=== PATIENT | female | born 1960 | race Caucasian/White ===

== ENCOUNTER 2017-03-25 23:27 | Inpatient (IN) | payer OTHER ==
[~2017-03-25] VITALS: Ht 182.9 cm; Wt 82.1 kg
[~2017-03-25 23:27] MED LIST: FURO-144 PO; LACT10SO6 PO; SPIR50TA PO
--- NOTE | 2017-03-25 23:30 | NUR ---
TO BED 7 A 57 YO FEMALE DOP646 FROM HOME, C/O ABD PAIN X 3 DAYS WITH ABD DISTENTION X 1 MONTH, AND PAIN ON THE LEFT LOWER QUADRANT AT 10/10. PATIENT NOTED ALSO WITH AYAD LEG SWELLING. HX LIVER CIRRHOSIS AND ETOH. LAST USE WAS TONIGHT WITH "A PINT OF VODKA." VSS. AFEBRILE. REPORTING ITCHINESS ON SKIN. NONDIAPHORETIC. NO SOB. KEPT HOB ELEVATED. TELE MONITORING ON. GOWNED. INITIATED COMFORT MEASURES. AWAITING FOR ER MD KEITH.
[2017-03-26] MEDS ORDERED: CEFTRIAXONE 1 G in IV D5W 50 ML IV ONE ×2
[2017-03-26] MEDS ORDERED: CEFTRIAXONE 1GM BAG (ER ONLY) 50 ML IV ONE (00:29)
[2017-03-26] MEDS ORDERED: LACTULOSE 10 G/15 ML UDC (PYXIS) PO PRN (00:30)
[2017-03-26] MEDS ORDERED: Z GUARD REMEDY 2 OZ OINT TP PRN (00:30)
[2017-03-26] MEDS ORDERED: ONDANSETRON HCL/PF 4 MG/2 ML VIAL IVP PRN (00:30)
[2017-03-26] MEDS ORDERED: ZOLPIDEM TARTRATE 5 MG TABLET PO PRN (00:30)
[2017-03-26] MEDS ORDERED: IV SET PRIMARY PUMP SET 1 EA INFUS.SET MC ONE ×2 (00:30→14:00)
[2017-03-26] MEDS ORDERED: MAG HYDROX/AL HYDROX/SIMETH 30 ML UDC PO PRN (00:30)
[2017-03-26] MEDS ORDERED: MAGNESIUM HYDROXIDE 30 ML UDC PO PRN (00:30)
[2017-03-26 00:32] LABS: BASOPHILS % (AUTO) 0.5 % (0.0-2.0); EOSINOPHILS # (AUTO) 0.3 /CMM (0.0-0.7); EOSINOPHILS % (AUTO) 5.6 % (0.0-6.0); HEMATOCRIT 30 % (33-45); LYMPHOCYTES # (AUTO) 2.4 /CMM (0.8-4.8); LYMPHOCYTES % (AUTO) 40.4 % (20.0-44.0); MEAN CORPUSCULAR HEMOGLOBIN 31 PG (26.0-33.0); MEAN CORPUSCULAR HGB CONC 33 g/dl (31.0-36.0); MEAN CORPUSCULAR VOLUME 96 fL (82-100); MONOCYTES # (AUTO) 0.4 /CMM (0.1-1.30); MONOCYTES % (AUTO) 5.9 % (2.0-12.0); NEUTROPHILS # (AUTO) 2.8 /CMM (1.8-8.9); NEUTROPHILS % (AUTO) 47.6 % (43.0-81.0); PLATELET COUNT (AUTO) 148 /CMM (150-450); RDW COEFFICIENT OF VARIATION 16.5 (11.5-15.0); RED BLOOD CELL COUNT(AUTO) 3.18 MIL/uL (4.0-5.2); WHITE BLOOD COUNT (AUTO) 5.9 K/uL (4.3-11.0)
--- NOTE | 2017-03-26 00:41 | NUR ---
PT ASSIGNED TO 311-2
[2017-03-26 00:53] LABS: CALCIUM, SERUM 8.1 mg/dL (8.5-10.1); CREATININE 0.9 mg/dL (0.6-1.3); POTASSIUM 3.4 mmol/L (3.5-5.1)
--- NOTE | 2017-03-26 00:56 | NUR ---
Report given to Xiomara BRUCE for Medsurg admission and rubi.
[2017-03-26 00:57] LABS: ALBUMIN 2.3 g/dL (3.4-5.0); BILIRUBIN,DIRECT 0.3 mg/dL (0.0-0.2); BILIRUBIN,TOTAL 0.6 mg/dL (0.2-1.0); TOTAL PROTEIN, SERUM 6.7 g/dL (6.4-8.2)
[2017-03-26 01:25] VITALS: BP 127/79
--- NOTE | 2017-03-26 01:25 | NUR ---
RN NOTES ADMITTED A 57 YEARS OLD FEMALE PT FROM ER VIA [facility] WITH PRIMARY DIAGNOSIS OF ASCITES AND CIRRHOSIS. PT ALERT AND ORIENTED X3, ABDOMINAL PAIN AT TOLERABLE LEVEL AT THIS TIME. 12/08.NO SOB, NOT IN DISTRESS, ON ROOM AIR AND TOLERATED WELL. IV ACCESS ON RIGHT HAND PATENT AND INTACT. SKIN AND BODY ASSESSMENT DONE, NOTED WITH MULTIPLE SMALL SCABS ON ABDOMEN AND BOTH LOWER LEG. ALL ORDERS NOTED AND CARRIED OUT. FALL PRECAUTION OBSERVED. WILL CONTINUE TO MONITOR PT.
--- NOTE | 2017-03-26 01:40 | NUR ---
RN NOTES PT ATE SMALL AMOUNT OF FOOD, VERBALIZING SHE'S HUNGRY AND TOLERATED WELL.
--- NOTE | 2017-03-26 06:53 | NUR ---
RN NOTES PT ASLEEP, BREATHING REGULAR AND UNLABORED, NO SIGNS OF DISTRESS AND DISCOMFORT NOTED. ON ROOM AIR AND TOLERATED WELL. KEPT PT ON NPO, SINCE PT LAST ATE AT 0140 FOR THE PARACENTESIS TODAY. VITAL SIGNS STABLE, AFEBRILE. NO EPISODE OF NAUSEA AND VOMITING NOTED. ALL NEEDS ATTENDED. WILL ENDORSE TO MORNING RN FOR CONTINUITY OF CARE.
--- NOTE | 2017-03-26 07:30 | NUR ---
MS RN RECEIVED ON BED, AWAKE,ALERT,ORIENTED X3,NOT IN ANY FORM OF DISTRESS, RESPIRATIONS EVEN AND UNLABORED,NO SOB NOTED. PATIENT IS NOTED TO HAVE ASCITES, FOR U/S GUIDED PARACENTESIS TODAY.
[2017-03-26 08:00] VITALS: BP 137/86
[2017-03-26] MEDS ORDERED: POTASSIUM CHLORIDE 20 MEQ TAB.PRT.SR PO ONE (08:30)
--- NOTE | 2017-03-26 09:00 | NUR ---
MS RN HELD DUE MEDS FOR PARACENTESIS TODAY.
--- NOTE | 2017-03-26 09:00 | NUR ---
MS RN WAS SEEN BY DR. KAREN Daigle/ ORDERS MADE AND CARRIED OUT.
[2017-03-26 09:10] LABS: INR 0.98 (0.87-1.13); PROTHROMBIN TIME 10.5 SECS (9.5-12.7)
--- NOTE | 2017-03-26 10:00 | NUR ---
MS RN CALLED ULTRASOUND FOR PROCEDURE, WAITING TO REPLY.
--- NOTE | 2017-03-26 11:00 | NUR ---
MS RN ULTRASOUND PARACENTESIS WILL BE DONE AT 1 PM, PATIENT IS AWARE.
--- NOTE | 2017-03-26 11:15 | NUR ---
Social service consult for ETOH. JORGE met with pt. bedside. Pt. is a 57 year old female who was admitted to [facility] for Liver Cirrhosis. Pt. has a history of Liver Cirrhosis and ETOH. Pt. is alert and oriented x4. Pt. informed SW she was feeling very hot and sweating and needed a fan. SW informed WALLY Awan regarding pt's request and to bring her some ice chips as well. Pt. informed SW she resides in [place] with some roommates. Pt's home address is [address] [place] [address]. [place] [address]. Pt. drinks approximately 2 to 3 pints of vodka per day. Pt. has not been to AA or in any treatment. Pt. states she has been drinking for years. Pt. does not use drugs. Pt. is a cigarette smoker and smoke 2 to 3 cigarettes per day. Pt. receives $800/ month in social security income. Pt. is interested in getting resources to AA and other alcohol treatment programs. SW to offer pt. referrals to AA and alcohol treatment programs prior to discharge.
--- NOTE | 2017-03-26 13:30 | NUR ---
MS RN U/S TECH CAME, PATIENT REFUSED, WANTS TO DO IT IN AM, ACCORDING TO HER, SHE IS NOT FEELING WELL. ZOFRAN GIVEN FOR NAUSEA, V/S CHECK WITHIN NORMAL LIMITS.SWEATING A LOT.
[2017-03-26] MEDS: Thiamine 100 MG in IV D5W 50 ML IV SCH (14:07)
[2017-03-26] MEDS: Folic acid 1 MG in IV D5W 50 ML IV SCH (14:07)
[2017-03-26] MEDS: FUROSEMIDE 40 MG TABLET PO SCH (14:09)
[2017-03-26] MEDS: SPIRONOLACTONE 25 MG TABLET PO SCH (14:09)
--- NOTE | 2017-03-26 14:30 | NUR ---
MS RN PATIENT FEELS BETTER, SLEEPING.
--- NOTE | 2017-03-26 15:36 | NUR ---
MS RN ON BED, NO DISTRESS NOTED.
[2017-03-26 16:00] VITALS: BP 172/90
--- NOTE | 2017-03-26 16:23 | NUR ---
AT 1430 PATIENT FELT ILL, DID NOT WANT ULTRASOUND GUIDED PARACENTESIS TODAY. WILL RE-ATTEMPT ULTRASOUND GUIDED PARACENTESIS TOMORROW 03/27/17 JANIS HAGAN IS AWARE
--- NOTE | 2017-03-26 17:51 | NUR ---
MS RN ON BED, NO DISTRESS NOTED.
--- NOTE | 2017-03-26 19:05 | NUR ---
RN NOTES RECEIVED PT AWAKE, HOB ELEVATED, NO SOB, NOT IN DISTRESS, ON ROOM AIR AND TOLERATED WELL. PT ALERT AND ORIENTED X3, DENIES ANY PAIN AND DISCOMFORT AT THIS TIME, DENIES NAUSEA AND VOMITING. ASCITES NOTED. IV ACCESS ON LEFT HAND PATENT AND INTACT. ASSISTED TO THE BATHROOM, FALL PRECAUTION OBSERVED. KEPT COMFORTABLE AND ATTENDED. WILL CONTINUE TO MONITOR PT.
[2017-03-26 20:00] VITALS: BP 114/67
--- NOTE | 2017-03-26 21:03 | NUR ---
RN NOTES PT IS VERBALIZING OF GENERALIZED BODY ITCHING, DR LEE MADE AWARE WITH ORDER TO GIVE BENADRYL 25 MG IV X1,NOTED AND CARRIED OUT.
[2017-03-26] MEDS ORDERED: diphenhydrAMINE HCL 50 MG/ML VIAL ONE (21:10)
--- NOTE | 2017-03-26 21:17 | NUR ---
RN NOTES BENADRYL 25 MG GIVEN IV FOR GENERALIZED BODY ITCHING. WILL CONTINUE TO MONITOR PT.
[2017-03-26] MEDS ORDERED: diphenhydrAMINE HCL 50 MG/ML VIAL IV ONE (21:30)
[2017-03-26 22:00] VITALS: BP 114/67
--- NOTE | 2017-03-27 06:41 | NUR ---
RN NOTES PT ASLEEP, BREATHING REGULAR AND UNLABORED, NO SOB, NOT IN DISTRESS, TOLERATING ROOM AIR. VITAL SIGNS STABLE, AFEBRILE. NO COMPLAIN OF PAIN, NO EPISODE OF NAUSEA AND VOMITING. PT SLEPT WELL WITH IN THE SHIFT. FOR ULTRA SOUND GUIDED PARACENTESIS TODAY. ALL NEEDS ATTENDED. ASSISTED TO THE BATHROOM, FALL PRECAUTION OBSERVED. WILL ENDORSE TO MORNING RN FOR CONTINUITY OF CARE.
--- NOTE | 2017-03-27 07:44 | NUR ---
RN OPENING NOTES RECEIVED PATIENT ON BED,AWAKE. ALERT AND ORIENTED X 3. RESPIRATIONS EVEN AND UNLABORED, HOB ELEVATED, NO SOB, NOT IN DISTRESS, ON ROOM AIR AND TOLERATED WELL. DENIES PAIN AND DISCOMFORT AT THIS TIME. ASCITES NOTED. IV ACCESS ON LEFT HAND PATENT AND INTACT. BED IN LOWEST POSITION, SIDERAILS UP X2. FALL PRECAUTION OBSERVED. CALL LIGHT WITHIN REACH. WILL CONTINUE TO MONITOR.
[2017-03-27 08:00] VITALS: BP_SYST 149; BP_SYST 181; BP_DIAS 67; BP_DIAS 80
[2017-03-27 08:05] VITALS: BP 150/69
[2017-03-27 08:17] LABS: BASOPHILS % (AUTO) 0.6 % (0.0-2.0); EOSINOPHILS # (AUTO) 0.2 /CMM (0.0-0.7); EOSINOPHILS % (AUTO) 4.6 % (0.0-6.0); HEMATOCRIT 33 % (33-45); HEMOGLOBIN 11.1 g/dL (11.5-14.8); LYMPHOCYTES # (AUTO) 1.7 /CMM (0.8-4.8); LYMPHOCYTES % (AUTO) 34.2 % (20.0-44.0); MEAN CORPUSCULAR HEMOGLOBIN 32 PG (26.0-33.0); MEAN CORPUSCULAR HGB CONC 33 g/dl (31.0-36.0); MEAN CORPUSCULAR VOLUME 97 fL (82-100); MONOCYTES # (AUTO) 0.4 /CMM (0.1-1.30); NEUTROPHILS # (AUTO) 2.6 /CMM (1.8-8.9); NEUTROPHILS % (AUTO) 51.6 % (43.0-81.0); PLATELET COUNT (AUTO) 137 /CMM (150-450); RDW COEFFICIENT OF VARIATION 16.1 (11.5-15.0); RED BLOOD CELL COUNT(AUTO) 3.46 MIL/uL (4.0-5.2)
[2017-03-27 08:52] LABS: CALCIUM, SERUM 8.7 mg/dL (8.5-10.1); CREATININE 0.7 mg/dL (0.6-1.3); PHOSPHORUS 4.5 mg/dL (2.5-4.9); POTASSIUM 4.6 mmol/L (3.5-5.1)
[2017-03-27] MEDS: SPIRONOLACTONE 25 MG TABLET PO SCH (08:54)
[2017-03-27] MEDS: FUROSEMIDE 40 MG TABLET PO SCH (08:55)
[2017-03-27 08:59] LABS: MAGNESIUM 1.5 mg/dL (1.8-2.4)
[2017-03-27] MEDS: Folic acid 1 MG in IV D5W 50 ML IV SCH (11:20)
--- NOTE | 2017-03-27 11:22 | NUR ---
JORGE met with pt. bedside and gave pt. the following resources to Alcohol and Drug treatment programs which included: [facility] , [facility] , [facility] alcohol treatment , [facility] , [facility] to name a few. JORGE also gave pt. phone number to Alcohol Anonymous and mental health referrals to [facility] , [facility] and [facility] .
--- NOTE | 2017-03-27 11:45 | NUR ---
PARACENTESIS DONE, 5000 MLS OUTPUT. PATIENT TOLERATED WELL.
[2017-03-27] MEDS: Thiamine 100 MG in IV D5W 50 ML IV SCH (12:02)
[2017-03-27] MEDS ORDERED: IV SET PRIMARY PUMP SET 1 EA INFUS.SET MC ONE ×3 (12:40→17:10)
[2017-03-27] MEDS: Magnesium 1GM/D5W 100ML PREMIX 100 ML IV SCH ×2 (12:45→14:05)
[2017-03-27] MEDS ORDERED: POTASSIUM PHOSPHATE MM 15 MMOL in IV D5W 250 ML IV SCH (15:00)
[2017-03-27] MEDS ORDERED: SECONDARY IV SET 1 EA INFUS.SET MC ONE ×2 (15:23→17:09)
[2017-03-27] MEDS: LEVOFLOXACIN 500 MG /D5W 100ML 500 MG in PREMIX 1 EA IV SCH (15:29)
[2017-03-27 16:00] VITALS: BP 140/79
[2017-03-27 16:02] VITALS: BP 139/75
--- NOTE | 2017-03-27 16:17 | NUR ---
VERIFIED WITH DR JONES REGARDING POTASSIUM PHOSPHATE ORDERED, PATIENT POTASSIUM LEVEL 4.6. PER TORSTEN WOOD TO GIVE POTASSIUM PHOSPATE.
[2017-03-27] MEDS ORDERED: IV NS 0.9% 250 ML IV ONE (17:09)
[2017-03-27] MEDS: POTASSIUM PHOSPHATE MM 7.5 MMOL in IV D5W 100 ML IV SCH ×2 (17:20→22:10)
--- NOTE | 2017-03-27 19:18 | NUR ---
RN CLOSING NOTES PATIENT ON BED RESTING. NO ACUTE DISTRESS NOTED. ALL NEEDS ATTENDED AND PROVIDED. BED IN LOWEST POSITION. CALL LIGHT WITHIN REACH. ENDORSED TO DREDGE ENGINEER RN FOR CONTINUITY OF CARE
[2017-03-27 20:00] VITALS: BP 153/87
--- NOTE | 2017-03-27 20:00 | NUR ---
MS/RN PATIENT AWAKE, ALERT, ORIENTED, COMFORTABLE, NO C/O PAIN AT THIS TIME, NO DISTRESS NOTED, CALL LIGHT IN REACH. WILL MONITOR.
--- NOTE | 2017-03-27 23:15 | NUR ---
MS/RN PATIENT IS SLEEPING AT THIS TIME, AROUSABLE, APPEAR COMFORTABLE, NO SIGNS OF DISTRESS NOTED, CALL LIGHT IN REACH. WILL CONTINUE TO MONITOR.
--- NOTE | 2017-03-28 07:27 | NUR ---
RN OPENING NOTES RECEIVED PATIENT ON BED, RESTING. ALERT AND ORIENTED X3. NO ACUTE DISTRESS NOTED, NO SOB, NO COMPLAINS OF PAIN. IV SITE INTACT AND PATENT. BED IN LOW POSITION. SIDERAILS UP X2. CALL LIGHT WITHIN REACH. WILL CONTINUE TO MONITOR.
--- NOTE | 2017-03-28 07:42 | NUR ---
MS/RN PATIENT STILL SLEEPING, AROUSABLE, COMFORTABLE, NO DISTRESS NOTED. ALL NEEDS ATTENDED AT THIS TIME.
[2017-03-28 08:00] VITALS: BP 143/76
[2017-03-28] MEDS ORDERED: FOLIC ACID 1 MG TABLET PO SCH (09:00)
[2017-03-28] MEDS ORDERED: THIAMINE HCL 100 MG TABLET PO SCH (09:00)
[2017-03-28] MEDS: FUROSEMIDE 40 MG TABLET PO SCH (09:26)
[2017-03-28] MEDS: SPIRONOLACTONE 25 MG TABLET PO SCH (09:27)
[2017-03-28] MEDS ORDERED: SECONDARY IV SET 1 EA INFUS.SET MC ONE ×2 (12:00→13:26)
[2017-03-28] MEDS: Magnesium 1GM/D5W 100ML PREMIX 100 ML IV SCH ×2 (12:11→15:28)
[2017-03-28] MEDS: LEVOFLOXACIN 500 MG /D5W 100ML 500 MG in PREMIX 1 EA IV SCH (13:25)
[2017-03-28 15:48] VITALS: BP 128/78
[2017-03-28 16:00] VITALS: BP 128/78
--- NOTE | 2017-03-28 18:00 | NUR ---
PATIENT DISCHARGE VIA WHEELCHAIR ACCOMPANIED BY DONALD LO. PATIENT IN STABLE CONDITION, VITAL SIGNS WNL. DISCHARGE TEACHING AND INSTRUCTIONS DONE.
== END 2017-03-28 19:00 | disposition home or self-care (01) | DRG 280 ==
LOC: ER 23:28 → MED 03-26 00:44
PROVIDERS: ADMIT Family Medicine; ATTEND Family Medicine
PROC: 0W9G3ZZ Drainage of Peritoneal Cavity, Percutaneous Approach (ICD-10-PCS; principal; 2017-03-27)
DX: K70.31 Alcoholic cirrhosis of liver with ascites (principal); D69.6 Thrombocytopenia, unspecified; K76.6 Portal hypertension; K72.90 Hepatic failure, unspecified without coma; F10.239 Alcohol dependence with withdrawal, unspecified; F10.229 Alcohol dependence with intoxication, unspecified; D63.8 Anemia in other chronic diseases classified elsewhere; Y90.8 Blood alcohol level of 240 mg/100 ml or more; G89.29 Other chronic pain; F17.210 Nicotine dependence, cigarettes, uncomplicated; Z83.3 Family history of diabetes mellitus
CPT/HCPCS: 36415; 76942-TC; 80048-TC; 80061-TC; 80076-TC; 82140-TC; 83690-TC; 83735-TC; 84100-TC; 85025-TC; 85610-TC; 87070-TC; 87081-TC; 88305-TC; 88312-TC; 89051-TC; A4216; A4606; A6403; G0480; J0696; J1200; J1956; J2405; J3411; J3475; J3490; J7050; J7060; Z7610

== ENCOUNTER 2017-11-01 18:05 | Inpatient (IN) | payer OTHER ==
[~2017-11-01] VITALS: Ht 182.9 cm; Wt 67.1 kg
--- NOTE | 2017-11-01 18:15 | NUR ---
BIB SELF C/O NAUSEA, VOMITING, AND ABDOMINAL PAIN, NAD NOTED, VSS, RESP EVEN AND UNLABORED, PT PUT ON MONITOR AND HOSPITAL GOWN, WAITING FOR MD KEITH.
[2017-11-01] MEDS ORDERED: ONDANSETRON HCL/PF 4 MG/2 ML VIAL ONE (18:24)
[2017-11-01] MEDS ORDERED: HYDROMORPHONE INJ 2 MG/ML DISP.SYRIN ONE (18:25)
[2017-11-01] MEDS ORDERED: MORPHINE SULFATE INJ 2 MG/ML DISP.SYRIN IV ONE (18:30)
[2017-11-01] MEDS ORDERED: IV NS 0.9% 500 ML BAG IV ONE (18:30)
[2017-11-01] MEDS ORDERED: HYDROMORPHONE 1 MG/1 ML DISP.SYRIN IV ONE (18:30)
[2017-11-01] MEDS ORDERED: ONDANSETRON HCL/PF 4 MG/2 ML VIAL IVP ONE (18:30)
[2017-11-01 18:40] LABS: BASOPHILS # (AUTO) 0.1 /CMM (0.0-0.2); BASOPHILS % (AUTO) 1.1 % (0.0-2.0); EOSINOPHILS # (AUTO) 0.3 /CMM (0.0-0.7); EOSINOPHILS % (AUTO) 3.5 % (0.0-6.0); HEMATOCRIT 38 % (33-45); HEMOGLOBIN 12.5 g/dL (11.5-14.8); LYMPHOCYTES # (AUTO) 1.9 /CMM (0.8-4.8); LYMPHOCYTES % (AUTO) 23.9 % (20.0-44.0); MEAN CORPUSCULAR HEMOGLOBIN 31 PG (26.0-33.0); MEAN CORPUSCULAR HGB CONC 33 g/dl (31.0-36.0); MEAN CORPUSCULAR VOLUME 95 fL (82-100); MONOCYTES # (AUTO) 0.7 /CMM (0.1-1.30); MONOCYTES % (AUTO) 8.3 % (2.0-12.0); NEUTROPHILS % (AUTO) 63.2 % (43.0-81.0); PLATELET COUNT (AUTO) 218 /CMM (150-450); RDW COEFFICIENT OF VARIATION 14.9 (11.5-15.0); RED BLOOD CELL COUNT(AUTO) 3.99 MIL/uL (4.0-5.2)
[2017-11-01 18:51] LABS: CALCIUM, SERUM 9.8 mg/dL (8.5-10.1); CREATININE 0.9 mg/dL (0.6-1.3); POTASSIUM 3.9 mmol/L (3.5-5.1)
--- NOTE | 2017-11-01 18:55 | NUR ---
PT UNABLE TO GIVE URINE AT THIS MOMENT. WILL TRY AFTER THE IVFLUIDS HAS INFUSED.
[2017-11-01 18:56] LABS: INR 0.94 (0.85-1.15)
[2017-11-01 18:57] LABS: ALBUMIN 3.3 g/dL (3.4-5.0); BILIRUBIN,DIRECT 0.2 mg/dL (0.0-0.2); BILIRUBIN,TOTAL 0.6 mg/dL (0.2-1.0); TOTAL PROTEIN, SERUM 8.8 g/dL (6.4-8.2)
[2017-11-01 19:24] LABS: APPEARANCE,URINE Slightly Cloudy (CLEAR); BILIRUBIN,URINE SMALL (NEGATIVE); BLOOD, URINE Large Ery/uL (NEGATIVE); COLOR,URINE Dark (YELLOW); KETONES,URINE Negative (NEGATIVE); LEUKOCYTE ESTERASE ,URINE Negative (NEGATIVE); NITRITE, URINE Positive (NEGATIVE); PROTEIN,URINE >=300 mg/dl (NEGATIVE); UGLUCOSE Negative (NEGATIVE); UROBILINOGEN,URINE 0.2 EU/dL (0.2)
[2017-11-01] MEDS ORDERED: IOHEXOL-300 100 ML VIAL IV ONE (19:33)
[2017-11-01 19:39] LABS: BACTERIA,URINE Many /HPF (None Seen); HYALINE CASTS, URINE Few /LPF (None Seen); MUCUS,URINE Rare /LPF (None Seen); SQUAMOUS EPITHELIAL CELL,UR Few /HPF (None Seen)
[2017-11-01] MEDS ORDERED: LORAZEPAM INJ 2 MG/ML VIAL IV ONE (21:00)
[2017-11-01] MEDS ORDERED: CEFTRIAXONE 2 G in IV D5W 50 ML IV ONE (21:00)
[2017-11-01] MEDS ORDERED: LORAZEPAM INJ 2 MG/ML VIAL ONE (21:05)
[2017-11-01] MEDS ORDERED: CEFTRIAXONE 1GM BAG (ER ONLY) 50 ML IV ONE ×2 (21:05→21:14)
[2017-11-01 22:00] VITALS: BP 123/89
--- NOTE | 2017-11-01 22:00 | NUR ---
BUSINESS SYSTEM CONSULTANT NOTES: RECEIVED PT VIA [employer]. PT ASLEEP AND SNORING AT THIS TIME. PT TO BE PLACED ON TELE BOX. PT HAS L AC #20G AND IS PATENT AND INTACT. CURRENTLY S/L. HOB TO BE ELEVATED AT ALL TIMES. CALL LIGHT WITHIN PT'S REACH. BED KEPT IN LOW, LOCKED POSITION, AND SIDE RAILS X 2UP. BED ALARM ACTIVATED. WILL CONTINUE TO MONITOR PT.
--- NOTE | 2017-11-01 22:15 | NUR ---
BAGGAGEMAN NOTES: DR. JONES AT BEDSIDE. PER DOCTOR, KEEP HOB ELEVATED AT ALL TIMES. ER NURSES SHOULD BE COMING TO PLACE NG TUBE PER DR. JONES.
--- NOTE | 2017-11-01 22:20 | NUR ---
INSERTED NG TUBE IN THE 3WEST FLOOR, PT PULLED OUT THE NGTUBE, AFTER PLACEMENT, PT REFUSED AND DIDN'T WANT TO COOPERATE ON THE 2ND ATTEMPT.
[2017-11-01] MEDS ORDERED: Z GUARD REMEDY 2 OZ OINT TP PRN (22:30)
[2017-11-01] MEDS ORDERED: ACETAMINOPHEN 325 MG TABLET PO PRN (22:30)
[2017-11-01] MEDS ORDERED: MAGNESIUM HYDROXIDE 30 ML UDC PO PRN (22:30)
[2017-11-01] MEDS ORDERED: ZOLPIDEM TARTRATE 5 MG TABLET PO PRN (22:30)
[2017-11-01] MEDS ORDERED: MAG HYDROX/AL HYDROX/SIMETH 30 ML UDC PO PRN (22:30)
[2017-11-01] MEDS ORDERED: HYDROCODONE/APAP 5/325MG 1 EACH TABLET PO PRN (22:30)
--- NOTE | 2017-11-01 22:56 | NUR ---
MISSION COORDINATOR NOTES: SPOKE WITH DR. JONES AND INFORMED HIM THAT PT WAS REFUSING AND RESISTANT WHILE ATTEMPTING TO INSERT NG TUBE. NO RESTRAINTS ORDER, NO MED ORDERS AT THIS TIME. WILL ATTEMPT NG INSERTION AGAIN AT ANOTHER TIME. DR. JONES ALSO ORDERED SMALL BOWEL THROUGH IN THE MORNING.
--- NOTE | 2017-11-01 23:27 | NUR ---
BRASS AND WIND INSTRUMENT REPAIRER NOTES: PT GOT UP TO USE THE RESTROOM. PT REFUSING NG TUBE INSERTION. PT VERBALIZED "NO".
--- NOTE | 2017-11-02 01:10 | NUR ---
CYANIDE FURNACE OPERATOR NOTES: INFORMED DR. JONES THAT PT HAS BEEN REFUSING NG TUBE INSERTION. ALSO ASKED TO SEE IF ANY IV FLUIDS TO BE ORDERED. NO ORDERS AT THIS TIME.
--- NOTE | 2017-11-02 02:28 | NUR ---
TELESALES ADVISOR NOTES: PT REFUSED NG TUBE INSERTION AGAIN.
[2017-11-02 04:00] VITALS: BP 139/79
--- NOTE | 2017-11-02 06:51 | NUR ---
MS BRUCE NOTES: PT REFUSING NG TUBE INSERTION AFTER HAVING EXPLAINED TO PT RISKS AND BENEFITS OF NG TUBE INSERTION FOR HER CONDITION. PT STILL REFUSING. Addendum: 11/02/17 at 0657 by MARKO WARREN RN ABHISHEK ACUÑA*
--- NOTE | 2017-11-02 06:57 | NUR ---
OBSTETRICS AND GYNECOLOGY PROFESSOR CLOSING NOTES: ALL NEEDS WERE ATTENDED AND ANTICIPATED FOR. PT KEPT NPO. PT STILL REFUSING NG TUBE INSERTION. PT HAS BEEN ASLEEP THROUGHOUT MY SHIFT. PT A/OX 1-2. PT ON TELE BOX AND READING SHOWING SINUS TACH 105. PT HAS L AC #20G AND IS PATENT AND INTACT. CURRENTLY S/L. NO IV FLUIDS ORDERED AT THIS TIME. HOB TO BE ELEVATED AT ALL TIMES. CALL LIGHT WITHIN PT'S REACH. BED KEPT IN LOW, LOCKED POSITION, AND SIDE RAILS X 2UP. BED ALARM ACTIVATED. WILL ENDORSE TO AM NURSE FOR SMITH.
[2017-11-02 07:02] LABS: BASOPHILS % (AUTO) 0.4 % (0.0-2.0); EOSINOPHILS # (AUTO) 0.1 /CMM (0.0-0.7); EOSINOPHILS % (AUTO) 3.2 % (0.0-6.0); HEMATOCRIT 31 % (33-45); HEMOGLOBIN 10.3 g/dL (11.5-14.8); INR 0.96 (0.87-1.13); LYMPHOCYTES # (AUTO) 1.3 /CMM (0.8-4.8); LYMPHOCYTES % (AUTO) 29.2 % (20.0-44.0); MEAN CORPUSCULAR HEMOGLOBIN 33 PG (26.0-33.0); MEAN CORPUSCULAR HGB CONC 34 g/dl (31.0-36.0); MEAN CORPUSCULAR VOLUME 98 fL (82-100); MONOCYTES # (AUTO) 0.5 /CMM (0.1-1.30); MONOCYTES % (AUTO) 11.6 % (2.0-12.0); NEUTROPHILS # (AUTO) 2.5 /CMM (1.8-8.9); NEUTROPHILS % (AUTO) 55.6 % (43.0-81.0); PLATELET COUNT (AUTO) 132 /CMM (150-450); RED BLOOD CELL COUNT(AUTO) 3.14 MIL/uL (4.0-5.2); WHITE BLOOD COUNT (AUTO) 4.4 K/uL (4.3-11.0)
[2017-11-02 07:12] LABS: THYROID STIMULATING HORMONE 0.672 uIU/mL (0.358-3.74)
[2017-11-02 07:20] LABS: ALBUMIN 2.8 g/dL (3.4-5.0); BILIRUBIN,TOTAL 0.9 mg/dL (0.2-1.0); CREATININE 0.9 mg/dL (0.6-1.3); MAGNESIUM 1.7 mg/dL (1.8-2.4); PHOSPHORUS 5.3 mg/dL (2.5-4.9); POTASSIUM 3.8 mmol/L (3.5-5.1); TOTAL PROTEIN, SERUM 7.6 g/dL (6.4-8.2)
--- NOTE | 2017-11-02 07:20 | NUR ---
RN NOTES RECEIVED PATIENT IN BED ASLEEP, EASILY AROUSABLE DURING CARE, ABLE TO MAKE NEEDS KNOWN. RESPIRATIONS EVEN AND UNLABORED, DENIES ANY PAIN OR DISCOMFORT AT THIS TIME. IV ACCESS PATENT AND INTACT NO REDNESS OR INFILTRATION NOTED. PATIENT CONTINUOUSLY REFUSING NGT INSERTION, NURSING EDUCATION REINFORCED. SAFETY MEASURES IN PLACE, KEPT CLEAN DRY AND COMFORTABLE.
[2017-11-02 08:00] VITALS: BP 153/78
--- NOTE | 2017-11-02 09:23 | NUR ---
RN NOTES PATIENT STATING " I WANT TO GO HOME I AM GOING TO LEAVE" PATIENT REPEATS " I DONT WANT TO DO ANYTHING, NO TEST, I DONT NEED IT , I WANT TO BE RELEASED" NURSING EDUCATION REINFORCED, WILL INFORM HOSPITALIST, WILL CONTINUE TO MONITOR AND INFORM PATIENT OF MD RECOMMENDATION
--- NOTE | 2017-11-02 09:33 | NUR ---
JANIS NOTES PATIENT CONTINUOUSLY REFUSING NGT INSERTION, AWARE Addendum: 11/02/17 at 5458 by AMEENA IBANEZ RN Amended: Links added.
--- NOTE | 2017-11-02 10:53 | NUR ---
RN NOTES NOTIFIED RADIOLOGY PT AGREEING TO HAVE SMALL BOWEL FOLLOW THROUGH WILL CONTINUE TO MONITOR
[2017-11-02] MEDS ORDERED: IV NS 0.9% 1,000 ML IV ONE (12:00)
--- NOTE | 2017-11-02 12:17 | NUR ---
RN NOTES PATIENT TAKEN FOR SMALL BOWEL FOLLOW THROUGH WILL ADMINISTER MEDICATIONS UPON RETURN
[2017-11-02] MEDS ORDERED: DIATR MEGLU/DIATRIZOATE SODIUM 120 ML BOTTLE (GASTROGRAPHIN) ONE (12:25)
[2017-11-02] MEDS ORDERED: Folic acid 1 MG in IV D5W 50 ML IV SCH (13:00)
--- NOTE | 2017-11-02 13:52 | NUR ---
RN NOTES PATIENT BACK FROM SMALL BOWEL FOLLOW THROUGH TO REMAIN NPO AT THIS TIME, NEEDS ANOTHER XRAY RADIOLOGY TO FOLLOW UP
[2017-11-02] MEDS ORDERED: Thiamine 100 MG in IV D5W 50 ML IV SCH (14:00)
--- NOTE | 2017-11-02 15:00 | NUR ---
RN NOTES IV MEDICATION ADMINISTERED LATE PT NOW FINISHED WITH SMALL BOWEL FOLLOW THROUGH WILL ADMINISTER AND CONTINUE TO MONITOR PT WITH MULTIPLE IV MEDICATIONS MD AND PHARMACY AWARE SPOKE TO ROLA FROM PHARMACY WILL DELIVER THIAMINE IV
[2017-11-02 16:00] VITALS: BP 152/83
[2017-11-02] MEDS: LORAZEPAM INJ 2 MG/ML VIAL IV PRN (16:12)
[2017-11-02] MEDS: ONDANSETRON HCL/PF 4 MG/2 ML VIAL IVP PRN (16:12)
[2017-11-02] MEDS: LEVOFLOXACIN 500 MG /D5W 100ML 500 MG in PREMIX 1 EA IV SCH (18:08)
[2017-11-02] MEDS ORDERED: IV D5/ 0.9% NACL 1,000 ML IV PRN (18:30)
--- NOTE | 2017-11-02 19:00 | NUR ---
GATE MORTISER OPERATOR NOTE: RECEIVE PT FROM BED, STABLE, NO ACUTE DISTRESS NOTED. BREATHING EVEN AND UNLABORED, NO SOB NOTED. BED LOCKED AND IN LOWEST POSITION, CALL LIGHT IN REACH. WILL CONTINUE TO MONITOR.
--- NOTE | 2017-11-02 19:10 | NUR ---
RN NOTES PATIENT IN BED ASLEEP, EASILY AROUSABLE DURING CARE, ABLE TO MAKE NEEDS KNOWN. RESPIRATIONS EVEN AND UNLABORED, DENIES ANY PAIN OR DISCOMFORT AT THIS TIME. IV ACCESS PATENT AND INTACT NO REDNESS OR INFILTRATION NOTED. PATIENT CONTINUOUSLY REFUSING NGT INSERTION, NURSING EDUCATION REINFORCED, MD AWARE. PATIENT WITH MULTIPLE IV MEDICATIONS NEXT SHIFT TO CONTINUE MEDICATION ADMINISTRATION, ENDORSED TO NEXT SHIFT FOR CONTINUITY OF CARE. SAFETY MEASURES IN PLACE, KEPT CLEAN DRY AND COMFORTABLE.SAFETY MEASURES IN PLACE, KEPT CLEAN DRY AND COMFORTABLE.
[2017-11-02 20:00] VITALS: BP 159/98
[2017-11-02] MEDS: Magnesium 1GM/D5W 100ML PREMIX 100 ML IV SCH ×2 (20:32→21:30)
[2017-11-03 04:00] VITALS: BP 145/74
[2017-11-03] MEDS: ONDANSETRON HCL/PF 4 MG/2 ML VIAL IVP PRN (06:11)
--- NOTE | 2017-11-03 06:34 | NUR ---
MS RN CLOSING NOTES PT COMFORTABLY ASLEEP AND EASILY AWAKEN, R.A 98% IN STABLE CONDITION. NOT IN FORM OF DISTRESS, RESPIRATION EVEN AND UNLABORED. KEPT CLEAN AND DRY AND COMFORTABLE, ALL NURSING CARE RENDERED. NEEDS ATTENDED AND ANTICIPATED, FREQUENT VISUAL CHECK DONE FOR SAFETY EVERY 2 HOURS. NO COMPLAINS OF PAIN. GOOD SKIN CARE PROVIDED. ON LOW BED AT ALL TIMES TO ENSURE SAFETY. SAFE HAZARD FREE ENVIRONMENT PROVIDED. CALL LIGHT WITHIN EASY TO REACH. WILL ENDORSE NEXT SHIFT CONTINUITY OF CARE Addendum: 11/03/17 at 0635 by ZACKARY CORTEZ RN CONTINUOUSLY REFUSING NGT INSERTION, NURSING EDUCATION DARIAN, MD LUJAN
[2017-11-03 06:43] LABS: BASOPHILS % (AUTO) 0.6 % (0.0-2.0); EOSINOPHILS # (AUTO) 0.2 /CMM (0.0-0.7); EOSINOPHILS % (AUTO) 7.7 % (0.0-6.0); HEMATOCRIT 31 % (33-45); HEMOGLOBIN 10.6 g/dL (11.5-14.8); LYMPHOCYTES # (AUTO) 0.7 /CMM (0.8-4.8); LYMPHOCYTES % (AUTO) 36.9 % (20.0-44.0); MEAN CORPUSCULAR HEMOGLOBIN 33 PG (26.0-33.0); MEAN CORPUSCULAR HGB CONC 34 g/dl (31.0-36.0); MEAN CORPUSCULAR VOLUME 97 fL (82-100); MONOCYTES # (AUTO) 0.2 /CMM (0.1-1.30); MONOCYTES % (AUTO) 10.6 % (2.0-12.0); NEUTROPHILS # (AUTO) 0.9 /CMM (1.8-8.9); NEUTROPHILS % (AUTO) 44.2 % (43.0-81.0); PLATELET COUNT (AUTO) 127 /CMM (150-450)
[2017-11-03 07:14] LABS: CALCIUM, SERUM 9.3 mg/dL (8.5-10.1); CREATININE 0.9 mg/dL (0.6-1.3); MAGNESIUM 2.1 mg/dL (1.8-2.4); PHOSPHORUS 3.4 mg/dL (2.5-4.9); POTASSIUM 4.4 mmol/L (3.5-5.1)
--- NOTE | 2017-11-03 07:37 | NUR ---
MS RN OPENING NOTE RECEIVED BEDSIDE SBAR REPORT ON THE PATIENT. PATIENT IS A/O X2, ASLEEP, EASILY AWAKEN. DENIES PAIN/DISCOMFORT AT THIS TIME. CHEST IS RISING EQUALLY BILATERALLY. SPO2 96% ON RA. PATIENT IS IN BED. HOB ELEVATED. BED IS LOCKED, IN LOWEST POSITION, SIDE RAILS UP X3, BED ALARM IS ON. CALL LIGHT WITHIN REACH. EDUCATED THE PATIENT TO CALL FOR ASSISTANCE USING THE CALL LIGHT. ALL NEEDS ARE MET AT THIS TIME. WILL CONTINUE TO ASSESS/MONITOR THROUGHOUT THE SHIFT.
[2017-11-03 08:00] VITALS: BP_SYST 124; BP_SYST 146; BP_DIAS 60; BP_DIAS 79
[2017-11-03 09:19] LABS: BAND % (MANUAL) 1 % (0.0-5.0); EOSINOPHILS % (MANUAL) 6 % (0-4); LYMPHOCYTES % (MANUAL) 30 % (16-48); MONOCYTES % (MANUAL) 11 % (0-11.0); NEUTROPHILS % (MANUAL) 52 (42-76)
[2017-11-03] MEDS: LORAZEPAM INJ 2 MG/ML VIAL IV PRN (11:55)
--- NOTE | 2017-11-03 12:04 | NUR ---
PATIENT COMPLAINED OF SEVERE ABDOMINAL PAIN. PRN NORCO ADMINISTERED PRESCRIBED. PATIENT PRESENTED WITH FINE HAND TREMORS AND COMPLAINED OF ANXIETY. PRN ATIVAN ADMINISTERED ORDERED.
--- NOTE | 2017-11-03 14:32 | NUR ---
CAME TO ADMINISTER MEDICATIONS DUE. PATIENT WAS IN THE BATHROOM. ASKED TO COME BACK LATER.
[2017-11-03] MEDS: THIAMINE HCL 100 MG TABLET PO SCH (15:04)
[2017-11-03] MEDS: LACTULOSE 10 G/15 ML UDC (PYXIS) PO PRN ×2 (15:05→23:05)
[2017-11-03] MEDS: LEVOFLOXACIN 500 MG /D5W 100ML 500 MG in PREMIX 1 EA IV SCH (15:06)
--- NOTE | 2017-11-03 15:10 | NUR ---
ADMINISTERED MEDICATIONS DUE AT 1400 PASSED SCHEDULED TIME PER PATIENT'S REQUEST.
[2017-11-03 15:57] VITALS: BP 131/94
--- NOTE | 2017-11-03 19:12 | NUR ---
ADVANCE DIET TO FULL LIQUIDS PER DR GARCIA
--- NOTE | 2017-11-03 19:27 | NUR ---
MS RN LUIS NOTE GAVE BEDSIDE SBAR REPORT ON THE PATIENT. PATIENT IS A/O X2, ASLEEP, EASILY AWAKEN. DENIES PAIN/DISCOMFORT AT THIS TIME. CHEST IS RISING EQUALLY BILATERALLY. SPO2 96% ON RA. PATIENT IS IN BED. HOB ELEVATED. BED IS LOCKED, IN LOWEST POSITION, SIDE RAILS UP X3, BED ALARM IS ON. CALL LIGHT WITHIN REACH. EDUCATED THE PATIENT TO CALL FOR ASSISTANCE USING THE CALL LIGHT. ALL DUE MEDS ADMINISTERED ORDERED. ALL NEEDS ARE MET AT THIS TIME. ENDORSED TO THE BAKERY AND DELI SALES MANAGER NURSE FOR SMITH.
[2017-11-03 20:00] VITALS: BP 142/78
[2017-11-04 06:14] LABS: BASOPHILS % (AUTO) 0.8 % (0.0-2.0); EOSINOPHILS # (AUTO) 0.4 /CMM (0.0-0.7); EOSINOPHILS % (AUTO) 10.6 % (0.0-6.0); HEMATOCRIT 31 % (33-45); HEMOGLOBIN 10.4 g/dL (11.5-14.8); LYMPHOCYTES # (AUTO) 1.3 /CMM (0.8-4.8); LYMPHOCYTES % (AUTO) 33.2 % (20.0-44.0); MEAN CORPUSCULAR HEMOGLOBIN 33 PG (26.0-33.0); MEAN CORPUSCULAR HGB CONC 34 g/dl (31.0-36.0); MEAN CORPUSCULAR VOLUME 97 fL (82-100); MONOCYTES # (AUTO) 0.4 /CMM (0.1-1.30); MONOCYTES % (AUTO) 11.1 % (2.0-12.0); NEUTROPHILS # (AUTO) 1.7 /CMM (1.8-8.9); NEUTROPHILS % (AUTO) 44.3 % (43.0-81.0); PLATELET COUNT (AUTO) 140 /CMM (150-450); RDW COEFFICIENT OF VARIATION 14.6 (11.5-15.0); RED BLOOD CELL COUNT(AUTO) 3.15 MIL/uL (4.0-5.2); WHITE BLOOD COUNT (AUTO) 3.9 K/uL (4.3-11.0)
[2017-11-04 06:23] LABS: INR 1.03 (0.87-1.13)
[2017-11-04 06:32] LABS: CALCIUM, SERUM 8.7 mg/dL (8.5-10.1); CREATININE 0.8 mg/dL (0.6-1.3); MAGNESIUM 1.6 mg/dL (1.8-2.4); PHOSPHORUS 3.4 mg/dL (2.5-4.9); POTASSIUM 3.9 mmol/L (3.5-5.1)
--- NOTE | 2017-11-04 06:37 | NUR ---
MS RN NOTES AWAKE & RESPONSIVE. NOT IN ANY DISTRESS. NO SOB NOTED. DENIES ANY PAIN OR DISCOMFORT AT THIS TIME. WITH IV-HL PATENT & INTACT. MONITORED ACCORDINGLY. CALL LIGHT WITHIN REACH. BED IN LOWEST POSITION. SR UP X 2 FOR SAFETY. WILL ENDORSE TO NEXT SHIFT.
[2017-11-04 08:00] VITALS: BP 130/79
[2017-11-04] MEDS ORDERED: SULF1TAB48 PO (08:31)
[2017-11-04] MEDS ORDERED: FOLI1TAB16 PO (08:31)
[2017-11-04] MEDS ORDERED: THIA100T13 PO (08:31)
[2017-11-04] MEDS: THIAMINE HCL 100 MG TABLET PO SCH (08:47)
[2017-11-04] MEDS: Magnesium 1GM/D5W 100ML PREMIX 100 ML IV SCH ×2 (08:48→10:25)
--- NOTE | 2017-11-04 08:51 | NUR ---
MS RN NOTES PATIENT IN BED, AWAKE. A/O X4. TOLERATING ROOM AIR, NO SOB. IVC IN LEFT AC G 20 PATENT AND INTACT, FLUSHES WELL. MAGNESIUM LOW 1.6, REPLACING IV ORDERED. CALL LIGHT WITHIN REACH. PATIENT TO BE DISCHARGED HOME TODAY, PATIENT IS AWARE. WILL CONT TO MONITOR.
--- NOTE | 2017-11-04 10:48 | NUR ---
PATIENT TOLERATED FULL LIQUID DIET WITH NO EPISODE OF VOMITING OR C/O NAUSEA. ADVANCED TO SOFT DIET TOLERATED.
[2017-11-04 12:00] VITALS: BP 129/79
[2017-11-04] MEDS ORDERED: FOLIC ACID 1 MG TABLET PO SCH (13:00)
[2017-11-04] MEDS ORDERED: LEVOFLOXACIN (500MG) 500 MG TABLET PO SCH (14:00)
--- NOTE | 2017-11-04 15:00 | NUR ---
MS RN DISCHARGED PATIENT HAS BEEN CLEARED FOR DISCHARGE BY . VS REMAINS STABLE, PATIENT IS AMBULATORY. IVC IN LEFT AC REMOVED, GAUZE APPLIED, NO BLEEDING NOTED. DISCHARGE INSTRUCTION GIVEN TO THE PATIENT, VERBALIZED UNDERSTANDING. BELONGINGS CHECK AND SEND WITH THE PATIENT UPON DC. PATIENT LEFT HOSP IN STABLE CONDITION VIA TAXI.
== END 2017-11-04 15:00 | disposition home health service (06) | DRG 279 ==
LOC: ER 18:09 → TELE 21:31 → MED 11-02 09:05
PROVIDERS: ADMIT Internal Medicine; ATTEND Internal Medicine
DX: K72.90 Hepatic failure, unspecified without coma (principal); K56.600 Partial intestinal obstruction, unspecified as to cause; K70.31 Alcoholic cirrhosis of liver with ascites; F41.9 Anxiety disorder, unspecified; F17.210 Nicotine dependence, cigarettes, uncomplicated; Y90.9 Presence of alcohol in blood, level not specified; F10.229 Alcohol dependence with intoxication, unspecified; L03.90 Cellulitis, unspecified; Z88.0 Allergy status to penicillin
CPT/HCPCS: 36415; 71045-TC; 74250-TC; 76700-TC; 80048-TC; 80053-TC; 80061-TC; 80076-TC; 81000-TC; 82140-TC; 83605-TC; 83690-TC; 83735-TC; 84100-TC; 84443-TC; 85025-TC; 85610-TC; 85730-TC; 87040-TC; 87081-TC; 87086-TC; 87186-TC; A4216; A4606; J0696; J1170; J1956; J2060; J2405; J3411; J3475; J3490; J7030; J7040; J7042; J7060; Q9963; Q9967; Z7610

== ENCOUNTER 2017-11-23 10:22 | Inpatient (IN) | payer OTHER ==
[~2017-11-23] VITALS: Ht 177.8 cm; Wt 69.4 kg
[2017-11-23] VITALS (11 sets, daily range): BP systolic 105–128; BP diastolic 67–89
[~2017-11-23 10:22] MED LIST changes: +FOLI1TAB16 PO; +SULF1TAB48 PO; +THIA100T13 PO
[2017-11-23] MEDS ORDERED: ONDANSETRON HCL/PF 4 MG/2 ML VIAL IVP ONE (10:30)
[2017-11-23] MEDS ORDERED: IV NS 0.9% 1,000 ML BAG IV ONE (10:30)
[2017-11-23] MEDS ORDERED: HYDROMORPHONE INJ 2 MG/ML DISP.SYRIN IV ONE (10:30)
--- NOTE | 2017-11-23 10:30 | NUR ---
aaox3, [id number] FROM HOME: ABDOMINAL PAIN, NAUSEA, VOMITING SINCE LAST NIGHT. rr is even and unlabored with nad noted. skin is warm and dry. Placed on the monitor. Awaiting md for eval.
[2017-11-23] MEDS ORDERED: ONDANSETRON HCL/PF 4 MG/2 ML VIAL ONE ×2 (10:36→11:55)
[2017-11-23] MEDS ORDERED: HYDROMORPHONE INJ 0.5 MG/0.5 ML SYRINGE ONE (10:37)
[2017-11-23 10:40] LABS: BASOPHILS % (AUTO) 0.3 % (0.0-2.0); EOSINOPHILS # (AUTO) 0.2 /CMM (0.0-0.7); EOSINOPHILS % (AUTO) 3.6 % (0.0-6.0); HEMATOCRIT 38 % (33-45); HEMOGLOBIN 12.8 g/dL (11.5-14.8); LYMPHOCYTES # (AUTO) 1.6 /CMM (0.8-4.8); MEAN CORPUSCULAR HEMOGLOBIN 32 PG (26.0-33.0); MEAN CORPUSCULAR HGB CONC 34 g/dl (31.0-36.0); MEAN CORPUSCULAR VOLUME 95 fL (82-100); MONOCYTES # (AUTO) 0.3 /CMM (0.1-1.30); MONOCYTES % (AUTO) 4.6 % (2.0-12.0); NEUTROPHILS # (AUTO) 3.7 /CMM (1.8-8.9); NEUTROPHILS % (AUTO) 63.5 % (43.0-81.0); PLATELET COUNT (AUTO) 210 /CMM (150-450); RDW COEFFICIENT OF VARIATION 14.4 (11.5-15.0); RED BLOOD CELL COUNT(AUTO) 3.97 MIL/uL (4.0-5.2); WHITE BLOOD COUNT (AUTO) 5.8 K/uL (4.3-11.0)
[2017-11-23 10:55] LABS: INR 0.93 (0.87-1.13)
[2017-11-23 10:57] LABS: ALBUMIN 3.4 g/dL (3.4-5.0); BILIRUBIN,DIRECT 0.3 mg/dL (0.0-0.2); BILIRUBIN,TOTAL 0.7 mg/dL (0.2-1.0); CALCIUM, SERUM 10.2 mg/dL (8.5-10.1); CREATININE 1.2 mg/dL (0.6-1.3); POTASSIUM 4.3 mmol/L (3.5-5.1)
[2017-11-23] MEDS ORDERED: HYDR-548 PO (11:13)
[2017-11-23] MEDS ORDERED: ONDA4TAB5 PO (11:13)
[2017-11-23] MEDS ORDERED: PROP10TA68 PO (11:13)
[2017-11-23] MEDS ORDERED: FAMO20TA8 PO (11:13)
--- NOTE | 2017-11-23 11:57 | NUR ---
Patient vomited at BS, Dr Glez verbally ordered Zofran 4MG IVP. Zofran is given per ER MD order.
[2017-11-23] MEDS ORDERED: ONDANSETRON HCL/PF 4 MG/2 ML VIAL IV ONE (12:30)
--- NOTE | 2017-11-23 12:44 | NUR ---
PT BACK FROM CT . PT REFUSED CXR
--- NOTE | 2017-11-23 13:18 | NUR ---
GAVE REPORT TO EMERALD NUNEZ 320 YUMIKO ADMITTING ABDOMINAL PAIN
[2017-11-23] MEDS ORDERED: FENTANYL PF 100MCG/2ML AMPUL ONE ×2 (13:24→17:08)
[2017-11-23] MEDS ORDERED: FENTANYL PF 100MCG/2ML AMPUL IV ONE (13:30)
--- NOTE | 2017-11-23 13:30 | NUR ---
verbal order dr lee given 50 mcg fentanyl instead of initial 100 mcg
[2017-11-23] MEDS ORDERED: METRONIDAZOLE 500MG/ NS 100ML 100 ML IV ONE (13:40)
[2017-11-23] MEDS ORDERED: CEFEPIME 2 GM in IV D5W 100 ML IV ONE (14:00)
[2017-11-23] MEDS ORDERED: CEFEPIME 1 GM VIAL IV ONE (14:00)
[2017-11-23] MEDS ORDERED: FLAGYL/NS RTU 500 MG/100 ML PIGGYBACK IV ONE (14:00)
[2017-11-23] MEDS ORDERED: HYDROMORPHONE INJ 2 MG/ML DISP.SYRIN IV PRN ×2 (14:30→20:00)
[2017-11-23] MEDS ORDERED: ONDANSETRON HCL/PF 4 MG/2 ML VIAL IVP PRN (14:30)
[2017-11-23] MEDS ORDERED: ACETAMINOPHEN 650 MG/SUPP.RECT RC PRN (14:30)
[2017-11-23] MEDS ORDERED: PANTOPRAZOLE 40 MG VIAL IV SCH (14:30)
[2017-11-23] MEDS ORDERED: MAG HYDROX/AL HYDROX/SIMETH 30 ML UDC PO PRN (14:30)
[2017-11-23] MEDS ORDERED: BUPIVACAINE 0.25% 75 MG/30 ML VIAL ONE (14:45)
[2017-11-23] MEDS ORDERED: LIDOCAINE 0.5% HCL 50 ML VIAL ONE (14:45)
[2017-11-23] MEDS ORDERED: ANESTHESIA TRAY IN PYXIS 1 EA TRAY MC ONE (14:45)
--- NOTE | 2017-11-23 14:45 | NUR ---
patient arrived to the unit
--- NOTE | 2017-11-23 15:00 | NUR ---
PATIENT ARRIVED TO THE UNIT FROM ER VIA GURNEY AND SAFELY ASSISTED TO THE BED. BED IS LOCKED IN LOWEST POSITION, SIDE RAILS UP X3, BED ALARM IS ON. NG TUBE PRESENT. NG TUBE SET TO SUCTION ORDERED. IV FLUIDS STARTED ORDERED. ASSESSMENT COMPLETED. PATIENT HAS MULTIPLE SKIN CONDITIONS. SKIN CONDITIONS DOCUMENTED, PICTURES TAKEN AND PLACED IN THE CHART. PATIENT IS SEDATED. RESPONDS TO LIGHT PAIN, OPENES EYES TO NAME AND FOLLOWS SIMPLE COMMANDS. CALL LIGHT WITHIN REACH. EDUCATED THE PATIENT TO CALL FOR ASSISTENCE USING THE CALL LIGHT. ALL NEEDS ARE MET. PATIENT DENIES PAIN/DISCOMFORT AT THIS TIME. CHEST IS RISING EQUALLY, BILATERALLY. PATIENT IS ON ROOM AIR, SPO2 96%. ADMISSION ORDERES RECEIVED. YUMIKO FORD AWARE OF PATIENT'S ARRIVAL TO THE UNIT. WILL CONTINUE TO ASSESS/MONITOR THROUGHOUT THE SHIFT.
--- NOTE | 2017-11-23 15:20 | NUR ---
PATIENT WAS TAKEN TO OR VIA GURNEY ACCOMPANIED BY TWO OR NURSES IN STABLE CONDITION.
[2017-11-23] MEDS: IV NS 0.9% 1,000 ML IV PRN (15:24)
[2017-11-23] MEDS ORDERED: SUCCINYLCHOLINE CHLORIDE 20 MG/ML VIAL ONE (17:07)
[2017-11-23] MEDS ORDERED: ROCURONIUM BROMIDE 50 MG/5 ML ONE (17:07)
[2017-11-23] MEDS ORDERED: VASOPRESSIN INJ 20 UNIT/ML VIAL ONE ×2 (17:07)
[2017-11-23] MEDS ORDERED: HYDROMORPHONE INJ 2 MG/ML DISP.SYRIN ONE (17:08)
--- NOTE | 2017-11-23 19:07 | NUR ---
PATIENT IS STILL NOT BACK ON THE FLOOR. SBAR REPORT GIVEN TO DELIVERY AND INSTALLATION SUBCONTRACTOR NURSE FOR SMITH.
--- NOTE | 2017-11-23 19:30 | NUR ---
MS CHERRY NOTES RECEIVED PT FROM OR AND ALSO REPORT RECEIVED FROM QUINTIN ( OR STAFF). ASLEEP AT THIS TIME, BUT AROUSES EASILY. A/O X 4. VERBALLY RESPONSIVE. NO DISTRESS, NO SOB NOTED. RESPIRATION IS EVEN AND UNLABORED. IV SITE ON RIGHT HAND INTACT AND PATENT. FLUSHED WITH NS NO S/S OF INFILTRATION NOTED. ABDOMEN WITH CLEAN AND INTACT DRESSING, NO S/S OF BLEEDING NOTED AT THIS TIME. NO C/O PAIN OR DISCOMFORT AT THIS TIME. ALL NEEDS ATTENDED AND MET. KEPT COMFORTABLE. SAFETY PRECAUTIONS OBSERVED. CALL LIGHT WITHIN REACH. WILL CONTINUE TO MONITOR. Addendum: 11/24/17 at 0025 by CHAPIN JONES RN MS BRUCE NOTES
[2017-11-23] MEDS ORDERED: HYDROMORPHONE INJ 0.5 MG/0.5 ML SYRINGE IV PRN (20:00)
--- NOTE | 2017-11-23 20:20 | NUR ---
PT HAS A FLAGYL IV DUE AT 1800, NOT GIVEN DUE TO PT STILL IN OR, SPOKE WITH LEA FROM PHARMACY, IT'S STILL OK TO GIVE FLAGYL AT THIS TIME.
[2017-11-23] MEDS: METRONIDAZOLE 500MG/ NS 100ML 500 MG in PREMIX 1 EA IV SCH (20:27)
[2017-11-24 00:30] VITALS: BP 136/75
--- NOTE | 2017-11-24 01:51 | NUR ---
MS RN NOTES: PT WAS COMPLAINING OF 8/10 ABDOMEN SHARP PAIN. PT'S BP WAS 144/81 HR 107. O2 SAT 100%. PT WAS ADMINISTERED DILAUDID. WILL CONTINUE TO MONITOR PT.
[2017-11-24] MEDS: METRONIDAZOLE 500MG/ NS 100ML 500 MG in PREMIX 1 EA IV SCH ×5 (02:01→23:03)
[2017-11-24] MEDS: ONDANSETRON HCL/PF 4 MG/2 ML VIAL IVP PRN (02:01)
--- NOTE | 2017-11-24 06:28 | NUR ---
MS RN NOTES PT RESTING COMFORTABLY AT THIS TIME, AROUSES EASILY. A/O X 4. VERBALLY RESPONSIVE. NO DISTRESS, NO SOB NOTED. RESPIRATION IS EVEN AND UNLABORED. IV SITE ON RIGHT HAND INTACT AND PATENT. FLUSHED WITH NS NO S/S OF INFILTRATION NOTED. IVF INFUSING WELL. ABDOMEN WITH CLEAN AND INTACT DRESSING, NO S/S OF BLEEDING NOTED AT THIS TIME. PT ABLE TO URINATE WITH DARK YELLOW URINE X 3. NO C/O PAIN OR DISCOMFORT AT THIS TIME. ALL NEEDS ATTENDED AND MET. KEPT COMFORTABLE. ALL DUE MEDS GIVEN. SAFETY PRECAUTIONS OBSERVED. CALL LIGHT WITHIN REACH. WILL ENDORSE TO NEXT SHIFT FOR SMITH. .
[2017-11-24 06:43] LABS: BASOPHILS % (AUTO) 0.1 % (0.0-2.0); EOSINOPHILS % (AUTO) 0.1 % (0.0-6.0); HEMATOCRIT 31 % (33-45); HEMOGLOBIN 10.3 g/dL (11.5-14.8); LYMPHOCYTES # (AUTO) 0.8 /CMM (0.8-4.8); LYMPHOCYTES % (AUTO) 16.9 % (20.0-44.0); MEAN CORPUSCULAR HEMOGLOBIN 33 PG (26.0-33.0); MEAN CORPUSCULAR HGB CONC 34 g/dl (31.0-36.0); MEAN CORPUSCULAR VOLUME 97 fL (82-100); MONOCYTES # (AUTO) 0.6 /CMM (0.1-1.30); MONOCYTES % (AUTO) 11.6 % (2.0-12.0); NEUTROPHILS # (AUTO) 3.4 /CMM (1.8-8.9); NEUTROPHILS % (AUTO) 71.3 % (43.0-81.0); PLATELET COUNT (AUTO) 140 /CMM (150-450); RDW COEFFICIENT OF VARIATION 14.4 (11.5-15.0); RED BLOOD CELL COUNT(AUTO) 3.16 MIL/uL (4.0-5.2); WHITE BLOOD COUNT (AUTO) 4.8 K/uL (4.3-11.0)
[2017-11-24 07:05] LABS: CALCIUM, SERUM 8.4 mg/dL (8.5-10.1); CREATININE 1.6 mg/dL (0.6-1.3); MAGNESIUM 1.7 mg/dL (1.8-2.4); PHOSPHORUS 5.3 mg/dL (2.5-4.9); POTASSIUM 3.7 mmol/L (3.5-5.1)
[2017-11-24 08:00] VITALS: BP 132/75
[2017-11-24] MEDS: PANTOPRAZOLE 40 MG TABLET.DR PO SCH (08:20)
[2017-11-24] MEDS: HYDROCODONE/APAP 10/325MG 1 EA TABLET PO PRN ×2 (09:40→21:14)
[2017-11-24] MEDS ORDERED: Magnesium 1GM/D5W 100ML PREMIX PIGGYBACK IV SCH (10:30)
--- NOTE | 2017-11-24 10:30 | NUR ---
MS RN NOTES SEEN AND EVALUATED BY SUNDEEP FORD WITH NEW ORDERS MADE. NOTED AND CARRIED OUT.
[2017-11-24] MEDS: THIAMINE HCL 100 MG TABLET PO SCH (10:49)
--- NOTE | 2017-11-24 12:10 | NUR ---
MS RN NOTES SEEN AND EVALUATED BY DR HANKS WITH NEW ORDERS MADE. NOTED AND CARRIED OUT.
[2017-11-24] MEDS: CEFEPIME 1 GM in IV D5W 50 ML IV SCH (14:23)
[2017-11-24 16:00] VITALS: BP 146/85
[2017-11-24] MEDS: IV NS 0.9% 1,000 ML IV PRN (17:03)
--- NOTE | 2017-11-24 18:30 | NUR ---
MS RN CLOSING NOTES PATIENT IN BED EYES CLOSED, ALERT ORIENTED X4.RESPONSIVE VERBAL AND TACTILE STIMULI. NO ACUTE DISTRESS NOTED. BREATHING UNLABORED. NO SOB NOTED. IV ACCESS PATENT AND INTACT, NO REDNESS OR SWELLING NOTED. DUE MEDICATIONS GIVEN. NO ASE NOTED. NEEDS ATTENDED AND ANTICIPATED. HOB ELEVATED. SAFETY MEASURES IS PLACE. CALL LIGHT WITHIN REACH. WILL CONTINUE TO MONITOR ACCORDINGLY. WILL ENDORSE TO DIMMER BOARD OPERATOR FOR CONTINUITY OF CARE.
--- NOTE | 2017-11-24 19:30 | NUR ---
RN INITIAL NOTES RECEIVED PT LAYING IN BED WITH HOB ELEVATED, COMFORTABLY SLEEPING. HOWEVER, EASILY AROUSABLE AND RESPONSIVE. RESPIRATIONS ARE EVEN AND UNLABORED, NOT IN ANY ACUTE DISTRESS NOTED. PUPILS ARE REACTIVE TO LIGHT AND ARE EQUAL. BILATERAL HAND SCOOP FILLER ARE STRONG AND EQUAL. IV SITE INTACT, DRESSING KEPT CLEAN AND DRY. DRESSING TO ABDOMINAL SITE INTACT, DRESSING KEPT CLEAN AND DRY. DENIES ANY PAIN AT THIS TIME AND WILL CONTINUE TO MONITOR. SAFETY MEASURES IN PLACE. BED IS IN ITS LOW AND LOCKED POSITION. INSTRUCTED PT TO USE CALL LIGHT WHEN ASSISTANCE IS NEEDED, CALL LIGHT IS LEFT WITHIN REACH. WILL CONTINUE TO MONITOR THROUGHOUT SHIFT.
[2017-11-24 20:00] VITALS: BP 162/81
[2017-11-24 20:23] LABS: APPEARANCE,URINE SL CLOUDY (CLEAR); BILIRUBIN,URINE NEGATIVE (NEGATIVE); BLOOD, URINE 3+ Ery/uL (NEGATIVE); COLOR,URINE YELLOW (YELLOW); KETONES,URINE NEGATIVE (NEGATIVE); LEUKOCYTE ESTERASE ,URINE NEGATIVE (NEGATIVE); NITRITE, URINE NEGATIVE (NEGATIVE); PH,URINE 5.5 (5.0-8.0); PROTEIN,URINE 1+ mg/dl (NEGATIVE); UGLUCOSE NEGATIVE (NEGATIVE); UROBILINOGEN,URINE 0.2 EU/dL (0.2)
[2017-11-24 20:54] LABS: RBC,URINE 21-50 /HPF (0-2)
[2017-11-24 20:55] LABS: BACTERIA,URINE 2+ /HPF (None Seen); HYALINE CASTS, URINE Few /LPF (None Seen)
[2017-11-24 22:06] LABS: EOSINOPHIL,URINE None Seen
--- NOTE | 2017-11-24 22:48 | NUR ---
RN NOTES RELAYED UA RESULTS TO DR. MACKENZIE STUBBS W/ NO NEW ORDERS AT THIS TIME.
[2017-11-25] MEDS: METRONIDAZOLE 500MG/ NS 100ML 500 MG in PREMIX 1 EA IV SCH ×4 (05:20→23:14)
[2017-11-25] MEDS: IV NS 0.9% 1,000 ML IV PRN ×2 (05:21→23:14)
[2017-11-25] MEDS: HYDROCODONE/APAP 10/325MG 1 EA TABLET PO PRN ×3 (05:27→19:03)
--- NOTE | 2017-11-25 06:05 | NUR ---
RN CLOSING NOTES ALL DUE MEDS GIVEN, NEEDS MET AND RENDERED. ALERT AND RESPONSIVE. RESPIRATIONS ARE EVEN AND UNLABORED, NOT IN ANY ACUTE DISTRESS NOTED. DENIES ANY CHEST PAIN, N/V, SOB. IV TO RIGHT HAND INTACT, NO INFILTRATION NOTED. DRESSING KEPT CLEAN AND DRY. SAFETY MEASURES IN PLACE. BED IS IN ITS LOW AND LOCKED POSITION. REMINDED PT TO USE CALL LIGHT WHEN ASSISTANCE IS NEEDED, CALL LIGHT LEFT WITHIN REACH. WILL ENDORSE TO NEXT SHIFT FOR CONTINUITY OF CARE.
[2017-11-25 07:15] LABS: BASOPHILS % (AUTO) 0.5 % (0.0-2.0); EOSINOPHILS # (AUTO) 0.3 /CMM (0.0-0.7); EOSINOPHILS % (AUTO) 5.4 % (0.0-6.0); HEMATOCRIT 31 % (33-45); HEMOGLOBIN 10.3 g/dL (11.5-14.8); LYMPHOCYTES # (AUTO) 1.5 /CMM (0.8-4.8); LYMPHOCYTES % (AUTO) 30.6 % (20.0-44.0); MEAN CORPUSCULAR HEMOGLOBIN 33 PG (26.0-33.0); MEAN CORPUSCULAR HGB CONC 34 g/dl (31.0-36.0); MEAN CORPUSCULAR VOLUME 97 fL (82-100); MONOCYTES # (AUTO) 0.5 /CMM (0.1-1.30); MONOCYTES % (AUTO) 10.8 % (2.0-12.0); NEUTROPHILS # (AUTO) 2.6 /CMM (1.8-8.9); NEUTROPHILS % (AUTO) 52.7 % (43.0-81.0); PLATELET COUNT (AUTO) 114 /CMM (150-450); RDW COEFFICIENT OF VARIATION 14.4 (11.5-15.0); RED BLOOD CELL COUNT(AUTO) 3.15 MIL/uL (4.0-5.2); WHITE BLOOD COUNT (AUTO) 4.9 K/uL (4.3-11.0)
[2017-11-25 07:28] LABS: CALCIUM, SERUM 8.3 mg/dL (8.5-10.1); CREATININE 0.9 mg/dL (0.6-1.3); MAGNESIUM 1.8 mg/dL (1.8-2.4); PHOSPHORUS 2.8 mg/dL (2.5-4.9); POTASSIUM 4.3 mmol/L (3.5-5.1)
--- NOTE | 2017-11-25 07:35 | NUR ---
RN OPENING NOTES RECEIVED PT. IN BED A&OX4. BREATHING UNLABORED, AND EVENLY ON ROOM AIR. NO S/S OF ACUTE DISTRESS. IV FLUIDS RUNNING AT 75 ML/HR. A COMMODE IS AT THE BEDSIDE, AND A FWW FOR ASSISTANCE WITH AMBULATION. BED IS IN LOWEST, AND LOCKED POSITION. 2 SIDE RAILS UP, AND CALL LIGHT IS WITHIN REACH. ALL NEEDS MET. WILL CONTINUE TO ASSESS AND MONITOR.
[2017-11-25 08:00] VITALS: BP 157/97
--- NOTE | 2017-11-25 08:20 | NUR ---
MS/RN NOTE PATIENT ALERT AND ORIENTED X4. RESPIRATION REGULAR AND UNLABORED. DENIES SOB, PAIN AT THIS TIME. RIGHT HAND G 20 PATENT AND IV INFUSING WITH NO S/S INFILTRATION. BED LOW AND LOCKED. SIDE RAILS UP X2. CALL LIGHT WITHIN REACH. WILL CONTINUE TO MONITOR.
[2017-11-25] MEDS: PANTOPRAZOLE 40 MG TABLET.DR PO SCH (08:59)
[2017-11-25] MEDS: THIAMINE HCL 100 MG TABLET PO SCH (08:59)
[2017-11-25] MEDS: CEFEPIME 1 GM in IV D5W 50 ML IV SCH (13:41)
[2017-11-25] MEDS: ONDANSETRON HCL/PF 4 MG/2 ML VIAL IVP PRN (15:24)
--- NOTE | 2017-11-25 15:32 | NUR ---
MS/RN NOTE PATIENT WAS SEEN BY DR MORALES WITH NEW VERBAL ORDER. THE ORDER READ BACK, VERIFIED. NOTED AND CARRIED OUT. THE PATIENT MADE AWARE.
[2017-11-25 15:48] VITALS: BP 159/93
[2017-11-25] MEDS ORDERED: BISACODYL SUPP (10 MG) 10 MG/SUPP.RECT SUPP.RECT RC PRN (16:00)
[2017-11-25] MEDS: PROPRANOLOL HCL 10 MG TABLET PO SCH (17:44)
[2017-11-25 18:15] VITALS: BP 133/72
--- NOTE | 2017-11-25 19:45 | NUR ---
MS/RN CLOSING NOTE PATIENT ALERT AND ORIENTED X4. RESPIRATION REGULAR AND UNLABORED. DENIES SOB, PAIN AT THIS TIME. IN NO APPARENT DISTRESS. RIGHT HAND G 20 PATENT AND IV INFUSING WITH NO S/S INFILTRATION. NO BM DURING THE SHIFT BUT THE PATIENT PASSING A LOTS GAS. BED LOW AND LOCKED. SIDE RAILS UP X2. CALL LIGHT WITHIN REACH. ENDORSED TO [facility] SHIFT.
--- NOTE | 2017-11-25 19:48 | NUR ---
MS/RN INITIAL NOTES RECEIVED PT LAYING IN BED WITH HOB. A/O X3, RESPIRATIONS ARE EVEN AND UNLABORED, NOT IN ANY ACUTE DISTRESS NOTED. DENIES ANY SOB, N/V, CHEST PAIN. PUPILS ARE REACTIVE TO LIGHT AND ARE EQUAL. BILATERAL HAND DUCT LAYER ARE STRONG AND EQUAL. IV SITE IS INTACT, DRESSING KEPT CLEAN AND DRY. DENIES ANY PAIN AT THIS TIME. SAFETY MEASURES IN PLACE. INSTRUCTED PT TO USE CALL LIGHT WHEN ASSISTANCE IS NEEDED, CALL LIGHT IS LEFT WITHIN REACH. WILL CONTINUE TO MONITOR THROUGHOUT SHIFT.
[2017-11-25 20:00] VITALS: BP 157/93
--- NOTE | 2017-11-26 01:00 | NUR ---
RN NOTES PT HAS NOT HAD A BM, OFFERED 3 PRUNE JUICE AND PT ABLE TO DRINK 100%. WILL CONTINUE TO MONITOR.
[2017-11-26] MEDS: METRONIDAZOLE 500MG/ NS 100ML 500 MG in PREMIX 1 EA IV SCH (05:10)
[2017-11-26] MEDS: HYDROCODONE/APAP 10/325MG 1 EA TABLET PO PRN ×2 (05:16→10:32)
--- NOTE | 2017-11-26 06:15 | NUR ---
MS/RN CLOSING NOTES ALL DUE MEDS GIVEN, NEEDS MET AND RENDERED. PT REMAINS A/O X3-4, REMAINS AFEBRILE. RESPIRATIONS ARE EVEN AND UNLABORED, NOT IN ANY ACUTE DISTRESS NOTED. C/O PAIN TO ABDOMINAL, ADMINISTERED NORCO10/325 1 TAB, NOTED TO BE EFFECTIVE. DENIES ANY SOB, CHEST PAIN, N/V. IV TO RIGHT HAND INTACT, NO INFILTRATION NOTED. DRESSING REINFORCED, KEPT CLEAN AND DRY. SAFETY MEASURES IN PLACE. BED IS IN ITS LOW AND LOCKED POSITION. WILL ENDORSE TO NEXT SHIFT FOR CONTINUITY OF CARE.
--- NOTE | 2017-11-26 07:10 | NUR ---
MS/RN OPENING NOTE PATIENT IN BED AWAKE. ALERT AND ORIENTED X4. RESPIRATION REGULAR AND UNLABORED. DENIES SOB, DENIES PAIN AT THIS TIME. THE PATIENT STATED THAT SHE HAD SMALL BOWEL MOVEMENT DURING THE PRINCIPAL JAVA DEVELOPER. LEFT HAND G 20 PATENT AND IV INFUSING WITH NO S/S INFILTRATION. SURGICAL SITE WITH NO DISCHARGE AND NO S/S INFECTION NOTED. ABDOMINAL BINDER ON PER ORDER. BED LOW AND LOCKED. SIDE RAILS UP X2. CALL LIGHT WITHIN REACH. WILL CONTINUE TO MONITOR.
--- NOTE | 2017-11-26 07:29 | NUR ---
MS/RN NOTE PATIENT IS SEEN BY DR MORALES WITH NEW DIET ORDER. THE ORDER READ BACK, VERIFIED. NOTED AND CARRIED OUT.
[2017-11-26 08:00] VITALS: BP 152/76
[2017-11-26 08:07] LABS: CALCIUM, SERUM 8.6 mg/dL (8.5-10.1); CREATININE 0.8 mg/dL (0.6-1.3); POTASSIUM 4.7 mmol/L (3.5-5.1)
[2017-11-26 08:21] VITALS: BP 154/76
[2017-11-26] MEDS: THIAMINE HCL 100 MG TABLET PO SCH (08:21)
[2017-11-26] MEDS: PROPRANOLOL HCL 10 MG TABLET PO SCH (08:21)
[2017-11-26] MEDS: PANTOPRAZOLE 40 MG TABLET.DR PO SCH (08:21)
[2017-11-26] MEDS ORDERED: HYDR-552 PO (08:54)
[2017-11-26] MEDS ORDERED: SPIRONOLACTONE 50 MG TABLET PO SCH (09:00)
[2017-11-26] MEDS ORDERED: SPIRONOLACTONE 25 MG TABLET PO SCH (09:00)
--- NOTE | 2017-11-26 11:02 | NUR ---
MS/RN CLOSING NOTE PATIENT ALERT AND ORIENTED X4. DENIES SOB, DENIES PAIN. RESPIRATION REGULAR AND UNLABORED. VITAL SIGNS WNL. THE PATIENT IN NO APPARENT DISTRESS. ALL NEEDS ATTENDED AND ANTICIPATED. DISCHARGE EDUCATION PROVIDED. THE PATIENT VERBALIZED UNDERSTANDING. PATIENT IS PICKED UP BY FRIEND JJ GOING HOME. THE JACQUARD LOOM CARD CHANGER ASSISTED THE PATIENT ALL THE WAY TO FRIEND`S CAR. THE PATIENT LEFT THE HOSPITAL IN STABLE CONDITION. Addendum: 11/26/17 at 1105 by ROWENA HOFFMAN RN PATIENT VERBALIZED THE PAIN MEDICATION BEING EFFECTIVE. THE PATIENT IN STABLE CONDITION.
== END 2017-11-26 10:55 | disposition home or self-care (01) | DRG 329 ==
LOC: ER 10:25 → MED 14:08
PROVIDERS: ADMIT Nurse Practitioner Acute Care; ATTEND Nurse Practitioner Acute Care
DX: K42.0 Umbilical hernia with obstruction, without gangrene (principal); N17.0 Acute kidney failure with tubular necrosis; E83.42 Hypomagnesemia; D69.6 Thrombocytopenia, unspecified; K76.6 Portal hypertension; K70.31 Alcoholic cirrhosis of liver with ascites; I70.90 Unspecified atherosclerosis; F17.210 Nicotine dependence, cigarettes, uncomplicated; F10.10 Alcohol abuse, uncomplicated; F41.9 Anxiety disorder, unspecified; D64.9 Anemia, unspecified
CPT/HCPCS: 36415; 71045-TC; 80048-TC; 80061-TC; 80076-TC; 81000-TC; 82570-TC; 83690-TC; 83735-TC; 84100-TC; 84300-TC; 85025-TC; 85730-TC; 87081-TC; 87086-TC; A4216; A4606; J0330; J0690; J0692; J1100; J1170; J1885; J2370; J2405; J2704; J2710; J3010; J3475; J3490; J7030; J7060; Z7610

== ENCOUNTER 2017-12-12 13:15 | Emergency (ER) | payer OTHER ==
[~2017-12-12] VITALS: Ht 182.9 cm; Wt 70.3 kg
[~2017-12-12 13:15] MED LIST changes: +FAMO20TA8 PO; +HYDR-548 PO; +HYDR-552 PO; +ONDA4TAB5 PO; +PROP10TA68 PO; -SULF1TAB48 PO
[2017-12-12 13:24] VITALS: BP 106/64
[2017-12-12] MEDS ORDERED: ALBUTEROL FS 2.5 MG/3 ML VIAL.NEB ONE (14:57)
[2017-12-12] MEDS ORDERED: IPRATROPIUM NEB FS 0.5 MG/2.5 ML AMPUL.NEB ONE (14:57)
[2017-12-12] MEDS ORDERED: IPRATROPIUM NEB FS 0.5 MG/2.5 ML AMPUL.NEB NEB ONE (15:00)
[2017-12-12] MEDS ORDERED: ALBUTEROL FS 2.5 MG/3 ML VIAL.NEB CONTNEB ONE (15:00)
== END 2017-12-12 15:27 | disposition home or self-care (01) ==
LOC: ER 13:21
DX: J40 Bronchitis, not specified as acute or chronic (principal); G89.18 Other acute postprocedural pain; K42.9 Umbilical hernia without obstruction or gangrene; F10.10 Alcohol abuse, uncomplicated; F17.200 Nicotine dependence, unspecified, uncomplicated; K56.609 Unspecified intestinal obstruction, unspecified as to partial versus complete obstruction; R18.8 Other ascites; Z88.0 Allergy status to penicillin; Z98.890 Other specified postprocedural states; Z48.01 Encounter for change or removal of surgical wound dressing
CPT/HCPCS: A4606; Z7610

== ENCOUNTER 2021-10-20 13:01 | Inpatient (IN) | payer OTHER ==
[~2021-10-20] VITALS: Ht 182.9 cm; Wt 73.9 kg
[~2021-10-20 13:01] MED LIST changes: +HYDR-4354 PO; +HYDR-4384 PO; -HYDR-548 PO; -HYDR-552 PO
--- NOTE | 2021-10-20 13:01 | NUR ---
PT BIBRA 102 FROM HOME C/O SOB ,COUGH X 2 DAYS AND ABDOMINAL DISTENSION. PT IS AAOX4, NOT IN RESPIRATORY DISTRESS, HOOKED TO O2 AT 3 LPM VIA NC AND MILL LABOR SUPERVISOR, KEPT RESTED AND COMFORTABLE. WILL CONTINUE TO MONITOR.
--- NOTE | 2021-10-20 13:11 | NUR ---
SEEN AND EXAMINED BY
[2021-10-20] MEDS ORDERED: LOSA25TA27 PO (13:22)
[2021-10-20] MEDS ORDERED: METO25TA4 PO (13:22)
[2021-10-20] MEDS ORDERED: ALBUTEROL FS 2.5 MG/3 ML VIAL.NEB CONTNEB ONE (13:30)
[2021-10-20] MEDS ORDERED: IV NS 0.9% 1,000 ML IV ONE (13:30)
[2021-10-20] MEDS ORDERED: IPRATROPIUM NEB FS 0.5 MG/2.5 ML AMPUL.NEB NEB ONE (13:30)
--- NOTE | 2021-10-20 13:45 | NUR ---
R HAND #20G S/L; PATENT AND INTACT. BLOOD COLLECTED AND GIVEN TO LAB JOSE. IVF NS 1000ML INFUSING ORDERED
--- NOTE | 2021-10-20 13:48 | NUR ---
IT SALES EXECUTIVE AT PT'S BEDSIDE
--- NOTE | 2021-10-20 13:50 | NUR ---
INFLUENZA AND COVID ANTIGEN SWAB COLLECTED AND SENT TO LAB
[2021-10-20] MEDS ORDERED: ALBUTEROL FS 2.5 MG/3 ML VIAL.NEB ONE (13:58)
[2021-10-20] MEDS ORDERED: IPRATROPIUM NEB FS 0.5 MG/2.5 ML AMPUL.NEB ONE (13:58)
--- NOTE | 2021-10-20 13:59 | NUR ---
RT AT PT'S BEDSIDE
--- NOTE | 2021-10-20 14:13 | NUR ---
[facility] [phone] PROVIDED INITIAL VS AWAITING CLINICALS
[2021-10-20] MEDS ORDERED: CEFTRIAXONE 1GM BAG (ER ONLY) 50 ML IV ONE (14:21)
[2021-10-20 14:29] LABS: CALCIUM, SERUM 8.3 mg/dL (8.5-10.1); CREATININE 1.5 mg/dL (0.6-1.3)
[2021-10-20] MEDS ORDERED: CEFTRIAXONE 1GM BAG (ER ONLY) 1 GM/50 ML PIGGYBACK IV ONE (14:30)
[2021-10-20] MEDS ORDERED: AZITHROMYCIN 500 MG in IV D5W 250 ML IV ONE (14:30)
[2021-10-20 14:44] LABS: ALBUMIN 1.8 g/dL (3.4-5.0); BILIRUBIN,DIRECT 0.1 mg/dL (0.0-0.2); BILIRUBIN,TOTAL 1.3 mg/dL (0.2-1.0); TOTAL PROTEIN, SERUM 6.4 g/dL (6.4-8.2)
[2021-10-20 14:48] LABS: BASOPHILS # (AUTO) 0.1 K/uL (0.0-0.2); BASOPHILS % (AUTO) 1.8 % (0.0-2.0); EOSINOPHILS % (AUTO) 2.8 % (0.0-6.0); HEMATOCRIT 40 % (33-45); HEMOGLOBIN 12.3 g/dL (11.5-14.8); LYMPHOCYTES % (AUTO) 46.3 % (20.0-44.0); MEAN CORPUSCULAR HGB CONC 31 g/dl (31.0-36.0); MEAN CORPUSCULAR VOLUME 91 fL (82-100); MONOCYTES # (AUTO) 0.4 K/uL (0.1-1.30); MONOCYTES % (AUTO) 10.5 % (2.0-12.0); NEUTROPHILS # (AUTO) 1.7 K/uL (1.8-8.9); NEUTROPHILS % (AUTO) 38.6 % (43.0-81.0); PLATELET COUNT (AUTO) 128 K/uL (150-450); RED BLOOD CELL COUNT(AUTO) 4.36 MIL/uL (4.0-5.2); WHITE BLOOD COUNT (AUTO) 4.3 K/uL (4.3-11.0)
--- NOTE | 2021-10-20 14:55 | NUR ---
TROPONIN 0.524; LAW CARLISLE AWARE
[2021-10-20] MEDS ORDERED: FUROSEMIDE 40 MG/4 ML VIAL IV ONE (15:00)
[2021-10-20] MEDS ORDERED: ENOXAPARIN SODIUM 80 MG/0.8 ML DISP.SYRIN SQ ONE ×2 (15:00→15:10)
--- NOTE | 2021-10-20 15:04 | NUR ---
CLINICALS GIVEN TO [facility] FOR INSURANCE.
[2021-10-20] MEDS ORDERED: FUROSEMIDE 40 MG/4 ML VIAL ONE (15:10)
[2021-10-20] MEDS ORDERED: CALCIUM CHLORIDE 1,000 MG/10 ML DISP.SYRIN ONE (15:10)
[2021-10-20] MEDS ORDERED: CALCIUM CHLORIDE 1,000 MG/10 ML DISP.SYRIN IV ONE (15:30)
--- NOTE | 2021-10-20 18:27 | NUR ---
CALLED [facility] [phone] LEFT
--- NOTE | 2021-10-20 18:45 | NUR ---
COLLECTION TEAM LEAD AT PT'S BEDSIDE
[2021-10-20 19:29] LABS: CALCIUM, SERUM 8.2 mg/dL (8.5-10.1); CREATININE 1.5 mg/dL (0.6-1.3); POTASSIUM 4.3 mmol/L (3.5-5.1)
[2021-10-20] MEDS ORDERED: Z GUARD REMEDY 4 OZ OINT TP PRN (23:30)
[2021-10-20] MEDS ORDERED: MAGNESIUM HYDROXIDE 30 ML UDC PO PRN (23:30)
[2021-10-20] MEDS ORDERED: ZOLPIDEM TARTRATE 5 MG TABLET PO PRN (23:30)
[2021-10-20] MEDS ORDERED: ACETAMINOPHEN 325 MG TABLET PO PRN (23:30)
[2021-10-20] MEDS ORDERED: ONDANSETRON HCL/PF 4 MG/2 ML VIAL IVP PRN (23:30)
[2021-10-20] MEDS ORDERED: HYDROCODONE/APAP 5/325MG TABLET PO PRN (23:30)
[2021-10-20] MEDS ORDERED: MAG HYDROX/AL HYDROX/SIMETH 30 ML UDC PO PRN (23:30)
[2021-10-20] MEDS: ENOXAPARIN SODIUM 40 MG/0.4 ML DISP.SYRIN SQ SCH (23:30)
[2021-10-21] MEDS ORDERED: ALBUTEROL FS 2.5 MG/3 ML VIAL.NEB NEB PRN (01:30)
[2021-10-21] MEDS ORDERED: IPRATROPIUM NEB FS 0.5 MG/2.5 ML AMPUL.NEB NEB PRN (01:30)
[2021-10-21] MEDS ORDERED: ENOXAPARIN SODIUM 40 MG/0.4 ML DISP.SYRIN SQ ONE (02:09)
[2021-10-21 04:48] LABS: BASOPHILS # (AUTO) 0.1 K/uL (0.0-0.2); BASOPHILS % (AUTO) 1.4 % (0.0-2.0); EOSINOPHILS % (AUTO) 3.1 % (0.0-6.0); HEMATOCRIT 39 % (33-45); HEMOGLOBIN 12.1 g/dL (11.5-14.8); LYMPHOCYTES # (AUTO) 2.2 K/uL (0.8-4.8); LYMPHOCYTES % (AUTO) 43.3 % (20.0-44.0); MEAN CORPUSCULAR HGB CONC 31 g/dl (31.0-36.0); MEAN CORPUSCULAR VOLUME 90 fL (82-100); MONOCYTES # (AUTO) 0.6 K/uL (0.1-1.30); MONOCYTES % (AUTO) 12.3 % (2.0-12.0); NEUTROPHILS % (AUTO) 39.9 % (43.0-81.0); PLATELET COUNT (AUTO) 122 K/uL (150-450)
--- NOTE | 2021-10-21 05:00 | NUR ---
PATIENT IN BED RESTING, VSS. PATIENT NOTED WITH NO ACUTE DISTRESS. RAD AT BEDSIDE
[2021-10-21 05:18] LABS: CALCIUM, SERUM 8.7 mg/dL (8.5-10.1); CREATININE 1.5 mg/dL (0.6-1.3); PHOSPHORUS 4.5 mg/dL (2.5-4.9); POTASSIUM 4.9 mmol/L (3.5-5.1)
[2021-10-21 05:21] LABS: THYROID STIMULATING HORMONE 1.766 uIU/mL (0.358-3.74)
[2021-10-21] MEDS ORDERED: methylPREDNISolone SOD SUCC 125 MG/2ML VIAL ONE ×2 (05:27→13:09)
[2021-10-21] MEDS: methylPREDNISolone SOD SUCC 125 MG/2ML VIAL IV SCH ×3 (05:36→21:13)
[2021-10-21] MEDS ORDERED: PANTOPRAZOLE 40 MG TABLET.DR PO ONE (07:34)
[2021-10-21] MEDS: PANTOPRAZOLE 40 MG TABLET.DR PO SCH (07:41)
[2021-10-21] MEDS ORDERED: CHLORDIAZEPOXIDE HCL 25 MG CAPSULE ONE (08:34)
[2021-10-21] MEDS ORDERED: FUROSEMIDE 40 MG TABLET ONE (08:34)
[2021-10-21] MEDS: CHLORDIAZEPOXIDE HCL 25 MG CAPSULE PO SCH ×2 (08:41→17:00)
--- NOTE | 2021-10-21 08:44 | NUR ---
FOOD TRAY PROVIDED
--- NOTE | 2021-10-21 08:50 | NUR ---
THE PATIENT IS ON OXYGEN AT 5L/MIN VIA NASAL CANNULA AND OXYGEN SATURATION IS AT 97%. THE PATIENT WITHOUT OXYGEN SATURATION IS AT 89%.
[2021-10-21] MEDS ORDERED: FUROSEMIDE 40 MG/4 ML VIAL IV SCH (09:00)
[2021-10-21] MEDS ORDERED: CEFTRIAXONE 1GM BAG (ER ONLY) 50 ML IV ONE (09:01)
[2021-10-21] MEDS: CEFTRIAXONE 1 G in IV D5W 50 ML IV SCH (09:06)
[2021-10-21] MEDS: AZITHROMYCIN 500 MG in IV D5W 250 ML IV SCH (09:34)
[2021-10-21] MEDS: FUROSEMIDE 100 MG/10 ML VIAL IV SCH ×3 (10:00→17:56)
[2021-10-21] MEDS ORDERED: FUROSEMIDE 40 MG/4 ML VIAL ONE (13:09)
--- NOTE | 2021-10-21 15:44 | NUR ---
report given to philip. anderson awaiting transfer to floor.
[2021-10-21 16:00] VITALS: BP 144/91
[2021-10-21] MEDS ORDERED: IPRATROPIUM NEB FS 0.5 MG/2.5 ML AMPUL.NEB NEB SCH (16:00)
--- NOTE | 2021-10-21 16:05 | NUR ---
PT TRANSFERRED TO 3W VIA ACLS PROTOCOL. VSS
[2021-10-21 16:34] VITALS: BP 141/91
[2021-10-21] MEDS: THIAMINE HCL 100 MG TABLET PO SCH (17:00)
--- NOTE | 2021-10-21 17:00 | NUR ---
tele bobbin trucker: admission admitted this 61 year old female pt from [facility] with dx: acute chf, nstemi. pt awake, a/ox3. pt gets sob on exertion and coughing. rapid negative. initially pt refused norco for arm pain, pt request for morphine. celina diehl (glue wheel operator) and made aware of pt's condition and request with no new order at this time, but says he is going to put an order for tramadol. pt made aware and agreed to take norco. norco 1 tab po given for arm pain. oriented to room and surroundings. urine collected via clean catch. lab called to collect specimen in ref. pt wearing own clothes, offered gown, but pt wants to wear gown on top only. pt refused skin assessment, denies skin breakdown when asked. afebrile. sinus tach 101 on the monitor. instructed to call for assistance. will continue to monitor.
[2021-10-21] MEDS: FOLIC ACID 1 MG TABLET PO SCH (17:01)
--- NOTE | 2021-10-21 17:43 | NUR ---
tele human factors engineer: notes dinner served. hob elevated. instructed to call for assistance. will continue to monitor.
--- NOTE | 2021-10-21 19:50 | NUR ---
COTTON WEIGHER OPERATOR OPENING NOTE PATIENT RECEIVED AWAKE IN BED. A/OX3. NO S/S OF DISTRESS, BREATHING SYMMETRICALLY. TELE MONITOR SR 89 W/ BBB. SAFETY MEASURES IN PLACE: BED AT LOWEST POSITION, RAILS UP X2, CALL GARCIA WITHIN REACH. WILL CONTINUE TO MONITOR.
[2021-10-21 20:00] VITALS: BP 128/82
[2021-10-21] MEDS: ENOXAPARIN SODIUM 40 MG/0.4 ML DISP.SYRIN SQ SCH (21:14)
[2021-10-21] MEDS: ALBUTEROL FS 2.5 MG/3 ML VIAL.NEB NEB SCH (21:31)
[2021-10-21] MEDS: IPRATROPIUM NEB FS 0.5 MG/2.5 ML AMPUL.NEB NEB SCH (21:31)
[2021-10-22] VITALS: BP 113/64
[2021-10-22] MEDS: ALBUTEROL FS 2.5 MG/3 ML VIAL.NEB NEB SCH ×4 (01:32→19:30)
[2021-10-22] MEDS: IPRATROPIUM NEB FS 0.5 MG/2.5 ML AMPUL.NEB NEB SCH ×4 (01:32→19:30)
[2021-10-22 04:00] VITALS: BP 107/56
[2021-10-22] MEDS: methylPREDNISolone SOD SUCC 125 MG/2ML VIAL IV SCH ×3 (04:48→20:56)
--- NOTE | 2021-10-22 06:51 | NUR ---
RETAIL SALES DIRECTOR CLOSING NOTE PATIENT AWAKE IN BED. A/OX3. NO S/S OF DISTRESS, BREATHING SYMMETRICAL, NC 5L. SILO OPERATOR REPORTS SR 94 BBB. PATIENT HAD EARLIER COMPLAINED OF EPIGASTRIC CHEST PAIN. PATIENT HAD HER O2 OFF AND WAS LYING FLAT, SUPINE. I ELEVATED PATIENT TO LOW-MID FOWLERS AND REPLACED HER NC O2. REASSESSING PATIENT SHE STATED HER PAIN WAS ALLEVIATED. EKG WAS PERFORMED AND PLACED IN CHART (ORDER HAD ALREADY BEEN GIVEN). FURTHER FOLLOW-UP (~15 MINS LATER) PATIENT REPORTED SHE STILL FELT RELIEVED OF HER PAIN. VS WNL, AND PATIENT HAS MAINTAINED HER STABILITY CONSISTENTLY. SAFETY MEASURES IN PLACE: BED AT LOWEST POSITION, RAILS UP X2, CALL GARCIA WITHIN REACH. WILL ENDORSE TO FOLLOWING SHIFT FOR SMITH.
[2021-10-22 07:19] LABS: ALBUMIN 1.6 g/dL (3.4-5.0); BILIRUBIN,TOTAL 0.3 mg/dL (0.2-1.0); CALCIUM, SERUM 7.9 mg/dL (8.5-10.1); CREATININE 2.2 mg/dL (0.6-1.3); PHOSPHORUS 4.4 mg/dL (2.5-4.9); POTASSIUM 4.9 mmol/L (3.5-5.1); TOTAL PROTEIN, SERUM 5.9 g/dL (6.4-8.2)
--- NOTE | 2021-10-22 07:41 | NUR ---
HORTICULTURAL AGENT OPENING NOTES RECEIVED Pt ASLEEP IN BED. EASILY AROUSABLE AND A/OX3. NO SIGNS OF DISTRESS AT THIS TIME, BREATHING IS WILLIE AND UNLABORED ON NC 5L. SAFETY MEASURES ARE IN PLACE: BED IS LOCKED AND IN LOWEST POSITION. SIDE RAILS UPx2, BED SIDE TABLE AND CALL LIGHT ARE WITHIN REACH. WILL CONTINUE TO MONITOR THROUGHOUT THE SHIFT
[2021-10-22 08:00] VITALS: BP 118/74
[2021-10-22] MEDS: CEFTRIAXONE 1 G in IV D5W 50 ML IV SCH (08:27)
[2021-10-22] MEDS: FOLIC ACID 1 MG TABLET PO SCH (08:28)
[2021-10-22] MEDS: CHLORDIAZEPOXIDE HCL 25 MG CAPSULE PO SCH ×2 (08:28→16:04)
[2021-10-22] MEDS: PANTOPRAZOLE 40 MG TABLET.DR PO SCH (08:28)
[2021-10-22] MEDS: THIAMINE HCL 100 MG TABLET PO SCH (08:28)
[2021-10-22] MEDS: METOPROLOL SUCCINATE 25 MG TAB.SR.24H PO SCH (08:29)
[2021-10-22] MEDS: AZITHROMYCIN 500 MG in IV D5W 250 ML IV SCH (09:34)
[2021-10-22 09:36] LABS: HEMATOCRIT 38 % (33-45); HEMOGLOBIN 11.7 g/dL (11.5-14.8); LYMPHOCYTES # (AUTO) 0.5 K/uL (0.8-4.8); LYMPHOCYTES % (AUTO) 9.2 % (20.0-44.0); MEAN CORPUSCULAR HGB CONC 31 g/dl (31.0-36.0); MEAN CORPUSCULAR VOLUME 91 fL (82-100); MONOCYTES # (AUTO) 0.1 K/uL (0.1-1.30); MONOCYTES % (AUTO) 2.9 % (2.0-12.0); NEUTROPHILS # (AUTO) 4.3 K/uL (1.8-8.9); NEUTROPHILS % (AUTO) 87.9 % (43.0-81.0); PLATELET COUNT (AUTO) 110 K/uL (150-450); RED BLOOD CELL COUNT(AUTO) 4.16 MIL/uL (4.0-5.2); WHITE BLOOD COUNT (AUTO) 4.9 K/uL (4.3-11.0)
[2021-10-22 15:50] LABS: BILIRUBIN,URINE NEGATIVE (NEGATIVE); COLOR,URINE YELLOW (YELLOW); LEUKOCYTE ESTERASE ,URINE NEGATIVE (NEGATIVE); NITRITE, URINE NEGATIVE (NEGATIVE); PROTEIN,URINE 30 mg/dl (NEGATIVE); UGLUCOSE NEGATIVE (NEGATIVE); UROBILINOGEN,URINE 0.2 EU/dL (0.2)
[2021-10-22 16:00] VITALS: BP 109/62
[2021-10-22 16:29] LABS: BACTERIA,URINE None seen /HPF (None Seen); RBC,URINE 51-80 /HPF (0-2); SQUAMOUS EPITHELIAL CELL,UR 0-2 /HPF (None Seen); URINE AMORPHOUS URATE Many /HPF (None Seen); WBC,URINE 0-2 /HPF (0-3)
--- NOTE | 2021-10-22 18:26 | NUR ---
BENDER HAND CLOSING NOTES Pt IS RESTING IN BED A/OX2-3. NO S/S OF DISTRESS AT THIS TIME, BREATHING IS EVEN AND UNLABORED AT THIS TIME. Pt IS ON AND OFF NC 5L AND TOLERATING WELL. FARE COLLECTOR REPORTS SR 8 BBB. NO [id number] OF PAIN MADE. Pt HAS AN IV ON R HAND THAT IS PATENT AND INTACT AT THIS TIME. ALL NEEDS MET. SAFETY MEASURES IN PLACE: BED IS LOCKED AND IN LOWEST POSITION. SIDE RAILS UPx3. BED SIDE TABLE AND CALL LIGHT ARE WITHIN REACH. WILL ENDORSE TO ONCOMING SHIFT.
--- NOTE | 2021-10-22 19:40 | NUR ---
RN NOTES RECEIVED PATIENT SLEEPING BUT AROUSABLE, SR WITH BBB HR-80, NO PAIN NOTED, NOT IN DISTRESS, CALL LIGHT WITHIN REACH, [id number], BED IN LOCKED POSITION, WILL CONTINUE TO MONITOR
[2021-10-22 20:00] VITALS: BP 121/57
[2021-10-22] MEDS: ENOXAPARIN SODIUM 30 MG/0.3 ML DISP.SYRIN SQ SCH (20:57)
[2021-10-23] VITALS (7 sets, daily range): BP systolic 121–134; BP diastolic 65–82
[2021-10-23] MEDS: IPRATROPIUM NEB FS 0.5 MG/2.5 ML AMPUL.NEB NEB SCH ×4 (01:30→19:30)
--- NOTE | 2021-10-23 02:25 | NUR ---
RT NOTE PT IS NON COMPLIANT. REFUSING HHN TX WELL REMOVING NASAL CANNULA. PT FOUND ON ROOM AIR W SPO2 OF 83%. PLACED PT BACK ON NASAL CANNULA SPO2 95%. RN AWARE.
[2021-10-23] MEDS: ALBUTEROL FS 2.5 MG/3 ML VIAL.NEB NEB SCH ×4 (02:38→19:30)
[2021-10-23] MEDS: methylPREDNISolone SOD SUCC 125 MG/2ML VIAL IV SCH ×3 (05:09→21:21)
--- NOTE | 2021-10-23 06:56 | NUR ---
RN NOTES SLEEPING BUT AROUSABLE, NON-COMPLIANT, ALWAYS REMOVING HER NASAL CANNULA, DENIES PAIN, NO SOB, CALL LIGHT WITHIN REACH, [id number], PT. NEEDS ATTENDED
[2021-10-23 07:17] LABS: CALCIUM, SERUM 8.2 mg/dL (8.5-10.1); CREATININE 2.6 mg/dL (0.6-1.3); POTASSIUM 5.4 mmol/L (3.5-5.1)
--- NOTE | 2021-10-23 07:27 | NUR ---
TECHNICIAN CHEMICAL CLEANING OPENING NOTES RECEIVED Pt AWAKE IN BED RESTING. Pt IS A/OX3. NO SIGNS OF DISTRESS AT THIS TIME. Pt REMOVES NC AND WAS ADVISED TO KEEP IT ON TO HELP WITH HER BREATHING. Pt HAS AN IV ON R HAND SL THAT IS PATENT AND INTACT.SAFETY MEASURES ARE IN PLACE: BED IS LOCKED AND IN LOWEST POSITION. SIDE RAILS UPx2, BED SIDE TABLE AND CALL LIGHT ARE WITHIN REACH. WILL CONTINUE TO MONITOR THROUGHOUT THE SHIFT
[2021-10-23] MEDS: CEFTRIAXONE 1 G in IV D5W 50 ML IV SCH (08:03)
[2021-10-23] MEDS: CHLORDIAZEPOXIDE HCL 25 MG CAPSULE PO SCH ×2 (08:04→16:56)
[2021-10-23] MEDS: FOLIC ACID 1 MG TABLET PO SCH (08:04)
[2021-10-23] MEDS: PANTOPRAZOLE 40 MG TABLET.DR PO SCH (08:04)
[2021-10-23] MEDS: THIAMINE HCL 100 MG TABLET PO SCH (08:04)
[2021-10-23 08:09] LABS: BASOPHILS % (AUTO) 0.3 % (0.0-2.0); HEMATOCRIT 37 % (33-45); HEMOGLOBIN 11.5 g/dL (11.5-14.8); LYMPHOCYTES # (AUTO) 0.7 K/uL (0.8-4.8); LYMPHOCYTES % (AUTO) 6.4 % (20.0-44.0); MEAN CORPUSCULAR HGB CONC 31 g/dl (31.0-36.0); MEAN CORPUSCULAR VOLUME 90 fL (82-100); MONOCYTES # (AUTO) 0.5 K/uL (0.1-1.30); NEUTROPHILS # (AUTO) 9.4 K/uL (1.8-8.9); NEUTROPHILS % (AUTO) 88.3 % (43.0-81.0); PLATELET COUNT (AUTO) 126 K/uL (150-450); RED BLOOD CELL COUNT(AUTO) 4.09 MIL/uL (4.0-5.2); WHITE BLOOD COUNT (AUTO) 10.7 K/uL (4.3-11.0)
[2021-10-23] MEDS: METOPROLOL SUCCINATE 25 MG TAB.SR.24H PO SCH ×2 (08:10→08:17)
[2021-10-23] MEDS: TRAMADOL HCL 50 MG TABLET PO PRN (08:29)
[2021-10-23] MEDS: AZITHROMYCIN 500 MG in IV D5W 250 ML IV SCH (09:36)
[2021-10-23] MEDS ORDERED: SODIUM POLYSTYRENE SULF. PWD 15 GM UDC PO ONE (14:00)
[2021-10-23] MEDS: ALBUMIN 25% 25 GM in PREMIX 1 EA IV SCH ×2 (15:12→21:56)
--- NOTE | 2021-10-23 18:25 | NUR ---
REFRIGERATING OILER CLOSING NOTES Pt IS RESTING IN BED A/OX2-3. NO S/S OF DISTRESS AT THIS TIME, BREATHING IS EVEN AND UNLABORED AT THIS TIME. Pt IS ON AND OFF NC 5L. WHEN ON NC Pt TOLERATES IT WELL. WHEN OFF NC, PT IS ADVISED TO PUT IT BACK ON SMALL EFFORTS TO BREATH IS NOTICED. Pt IS NON-COMPLIANT WITH TELE MONITOR. CONTINUES TO TAKE IT OFF. RISKS EXPLAINED TO Pt. NO COMPLAINTS OF PAIN MADE. Pt HAS AN IV ON R UA MIDLINE. IT IS PATENT AND INTACT AT THIS TIME. ALL NEEDS MET. SAFETY MEASURES IN PLACE: BED IS LOCKED AND IN LOWEST POSITION. SIDE RAILS UPx3. BED SIDE TABLE AND CALL LIGHT ARE WITHIN REACH. WILL ENDORSE TO ONCOMING SHIFT.
--- NOTE | 2021-10-23 19:35 | NUR ---
SUBSTATION OPERATOR OPENING NOTES RECEIVED PATIENT AWAKE IN BED. EASILY AROUSABLE AND A/OX3. NO SIGNS OF DISTRESS AT THIS TIME, BREATHING IS WILLIE AND UNLABORED ON NC 5L BUT PATIENT IS NON COMPLAINT WITH OXYGEN USE AT TIMES AND REMOVES O2 CANNULA. RISKS AND BENEFITS ARE EXPLAINED TO THE PATIENT BUT PATIENT CONTINUED TO REMOVE HER OXYGEN CANNULA OFF AT TIMES. PATIENT'S O2 SATURATION IS 93% AT THIS TIME. WILL MONITOR PATIENT CLOSELY. SAFETY MEASURES ARE IN PLACE. BED IS LOCKED AND IN LOWEST POSITION. BED ALARM IS ON FOR SAFETY, PATIENT IS UNSTEADY AT TIMES. SIDE RAILS UPx2, BED SIDE TABLE AND CALL LIGHT ARE WITHIN REACH. WILL CONTINUE TO MONITOR THROUGHOUT THE SHIFT
[2021-10-23] MEDS: ENOXAPARIN SODIUM 30 MG/0.3 ML DISP.SYRIN SQ SCH (21:22)
[2021-10-24 00:07] LABS: CALCIUM, SERUM 8.6 mg/dL (8.5-10.1); CREATININE 2.8 mg/dL (0.6-1.3); POTASSIUM 5.5 mmol/L (3.5-5.1)
[2021-10-24 00:20] VITALS: BP 134/86
[2021-10-24 00:52] VITALS: BP 134/86
[2021-10-24] MEDS: ALBUTEROL FS 2.5 MG/3 ML VIAL.NEB NEB SCH ×4 (01:30→19:42)
[2021-10-24] MEDS: IPRATROPIUM NEB FS 0.5 MG/2.5 ML AMPUL.NEB NEB SCH ×4 (01:30→19:42)
[2021-10-24 04:31] VITALS: BP 139/77
[2021-10-24] MEDS: methylPREDNISolone SOD SUCC 125 MG/2ML VIAL IV SCH ×3 (05:14→22:10)
[2021-10-24] MEDS: LORAZEPAM INJ 2 MG/ML VIAL IV PRN ×3 (05:38→23:17)
--- NOTE | 2021-10-24 05:40 | NUR ---
GAME TRAPPER NOTE: RESTLESSNESS/ANXIETY PATIENT IS RESTLESS AND ANXIOUS, UNABLE TO REDIRECT AT THIS TIME. PRN ATIVAN 1 MG IV ADMINISTERED ORDERED BY MD. WILL CONTINUE TO MONITOR.
[2021-10-24] MEDS: ALBUMIN 25% 25 GM in PREMIX 1 EA IV SCH (06:33)
[2021-10-24 07:14] LABS: HEMATOCRIT 34 % (33-45); HEMOGLOBIN 10.7 g/dL (11.5-14.8); LYMPHOCYTES # (AUTO) 0.5 K/uL (0.8-4.8); LYMPHOCYTES % (AUTO) 6.4 % (20.0-44.0); MEAN CORPUSCULAR HGB CONC 32 g/dl (31.0-36.0); MEAN CORPUSCULAR VOLUME 91 fL (82-100); MONOCYTES # (AUTO) 0.3 K/uL (0.1-1.30); MONOCYTES % (AUTO) 3.5 % (2.0-12.0); NEUTROPHILS # (AUTO) 7.6 K/uL (1.8-8.9); NEUTROPHILS % (AUTO) 90.1 % (43.0-81.0); PLATELET COUNT (AUTO) 125 K/uL (150-450); RED BLOOD CELL COUNT(AUTO) 3.74 MIL/uL (4.0-5.2); WHITE BLOOD COUNT (AUTO) 8.5 K/uL (4.3-11.0)
[2021-10-24 07:22] LABS: ALBUMIN 2.3 g/dL (3.4-5.0); BILIRUBIN,TOTAL 0.3 mg/dL (0.2-1.0); CALCIUM, SERUM 8.5 mg/dL (8.5-10.1); CREATININE 2.8 mg/dL (0.6-1.3); MAGNESIUM 2.3 mg/dL (1.8-2.4); PHOSPHORUS 6.6 mg/dL (2.5-4.9); POTASSIUM 5.1 mmol/L (3.5-5.1)
--- NOTE | 2021-10-24 07:30 | NUR ---
CONSTRUCTION FRAMER OPENING NOTES RECEIVED PATIENT ON BED, RESTING AND A/O X2-3 WITH EPISODES OF CONFUSION. ON O2 AT 5LPM VIA NASAL CANNULA. NO SOB NOTED. NOT IN DISTRESS. WITH NO COMPLAINTS OF PAIN AT THIS TIME. WITH IV ACCESS AT RIGHT UPPER ARM SALINE LOCKED, PATENT AND INTACT. SAFETY MEASURES IN PLACED. CALL LIGHT WITHIN REACH. BED ON LOWEST LOCKED POSITION, SIDE RAILS UP X2. WILL CONTINUE TO MONITOR.
--- NOTE | 2021-10-24 07:30 | NUR ---
RN NOTES PATIENT REFUSED TO HAVE HER TELE BOX ATTACHED TO HER FOR CARDIAC MONITORING.
--- NOTE | 2021-10-24 07:46 | NUR ---
RT NOTE PT IS NON COMPLIANT. REFUSING HHN TX WELL REMOVING NASAL CANNULA REMOVING PULSE OX. PT FOUND ON ROOM AIR W SPO2 OF 83%. PLACED PT BACK ON NASAL CANNULA SPO2 92-94%. RN AWARE.
[2021-10-24 08:00] VITALS: BP 132/82
[2021-10-24] MEDS: CEFTRIAXONE 1 G in IV D5W 50 ML IV SCH (08:45)
[2021-10-24] MEDS: PANTOPRAZOLE 40 MG TABLET.DR PO SCH (08:47)
[2021-10-24] MEDS: THIAMINE HCL 100 MG TABLET PO SCH (08:47)
[2021-10-24] MEDS: FOLIC ACID 1 MG TABLET PO SCH (08:47)
[2021-10-24] MEDS: METOPROLOL SUCCINATE 25 MG TAB.SR.24H PO SCH (08:48)
[2021-10-24] MEDS: CHLORDIAZEPOXIDE HCL 25 MG CAPSULE PO SCH ×2 (09:00→17:05)
[2021-10-24] MEDS ORDERED: AZITHROMYCIN 250 MG TABLET PO SCH (09:00)
--- NOTE | 2021-10-24 12:31 | NUR ---
RN NOTES PATIENT WAS RESTLESS AND AGITATED. ATIVAN GIVEN PER DOCTOR'S ORDER.
--- NOTE | 2021-10-24 12:41 | NUR ---
RT NOTE PT IS NON COMPLIANT. REFUSING HHN TX WELL REMOVING NASAL CANNULA AND NOT ALLOWING ME TO GET A READING VIA PULSE OX. PT FOUND ON ROOM AIR W SPO2 OF 86%. PLACED PT BACK ON NASAL CANNULA SPO2 92-93%. RN AWARE.
--- NOTE | 2021-10-24 13:00 | NUR ---
RN NOTES NURSE TIDWELL VISITED THE PATIENT TO PUT ON LIFE VEST FOR THE PATIENT BUT PATIENT REFUSED.
--- NOTE | 2021-10-24 14:22 | NUR ---
SW received consult for homelessness. Pt. is currently on Ativan. SW was not able to interview pt. SW will follow-up at a later time when pt. is oriented.
[2021-10-24 16:00] VITALS: BP 138/91
--- NOTE | 2021-10-24 19:04 | NUR ---
WATER VALVE REPAIRER CLOSING NOTES PATIENT ON BED, AWAKE AND A/O X2-3 WITH EPISODES OF CONFUSION. ON ONGOING HEMODIALYSIS. ON O2 AT 5LPM VIA NASAL CANNULA TOLERATING WELL. NO SOB NOTED. NOT IN DISTRESS. WITH NO COMPLAINTS OF PAIN AT THIS TIME. WITH IV ACCESS AT RIGHT UPPER ARM SALINE LOCKED, PATENT AND INTACT. WITH HD CATH AT RIGHT GROIN FOR HEMODIALYSIS. ON BILATERAL SOFT WRIST RESTRAINTS DUE TO PULLING OUT IV LINES. ON TELE MONITOR CURRENTLY READING SINUS RHYTHM AT 72BPM. SAFETY MEASURES IN PLACED. CALL LIGHT WITHIN REACH. BED ON LOWEST LOCKED POSITION, SIDE RAILS UP X2. WILL ENDORSE TO NEXT SHIFT FOR SMITH.
--- NOTE | 2021-10-24 19:30 | NUR ---
SHIFT NURSE MANAGER OPENING NOTE: RECEIVED REPORT AT PATIENT'S BEDSIDE. PATIENT UNDERGOING HD TO R GROIN AT THIS TIME. NO S/SX OF ERYTHEMA/SWELLING SURROUNDING HD CATH SITE. PATIENT IN NAD AND STABLE. ALERT AND ORIENTED X2. NEWS AGENT IN PLACE, READING SR. BILATERAL SOFT WRIST RESTRAINTS IN PLACE, TRIAL RELEASE OBSERVED PER FACILITY POLICY. PATIENT OBSERVED TO ATTEMPT AT PULLING ON DIALYSIS LINE DURING TRIAL RELEASE. JOHNSON MIDLINE SL, FLUSHED AND PATENT. NO S/SX OF ERYTHEMA/INFILTRATION TO OR SURROUNDING CATHETER INSERTION SITE. BED IN LOW/LOCKED POSITION. HOB ELEVATED TO SEMI-FOWLERS POSITION. CALL LIGHT WITHIN REACH.
[2021-10-24 20:42] VITALS: BP 131/87
--- NOTE | 2021-10-24 22:00 | NUR ---
INTAKE RN NOTE: HD COMPLETED. 2L OFF. VS 131/81, 62, 98.1, SPO2 97% ON 5L O2 VIA NC
[2021-10-24] MEDS: ENOXAPARIN SODIUM 30 MG/0.3 ML DISP.SYRIN SQ SCH (22:11)
[2021-10-25] VITALS: BP 149/87
[2021-10-25] MEDS: IPRATROPIUM NEB FS 0.5 MG/2.5 ML AMPUL.NEB NEB SCH ×4 (00:51→19:26)
[2021-10-25] MEDS: ALBUTEROL FS 2.5 MG/3 ML VIAL.NEB NEB SCH ×4 (00:51→19:26)
[2021-10-25] MEDS: TRAMADOL HCL 50 MG TABLET PO PRN (02:13)
--- NOTE | 2021-10-25 02:30 | NUR ---
COMPLIANCE ADVISOR NOTE: COVID ANTIGEN SAMPLE OBTAINED FROM BILATERAL NARES. SPECIMEN LABELED AND BAGGED, PLACED IN REFRIGERATOR, LAB NOTIFIED.
--- NOTE | 2021-10-25 02:52 | NUR ---
CONTINUOUS IMPROVEMENT LEAD NOTE: PATIENT EXTREMELY RESTLESS. PATIENT CHANGED AND REPOSITIONED WITH MINIMAL EFFECTIVENESS.
[2021-10-25] MEDS ORDERED: LORAZEPAM INJ 2 MG/ML VIAL ONE (03:17)
[2021-10-25] MEDS: LORAZEPAM INJ 2 MG/ML VIAL IV PRN ×3 (03:21→16:01)
--- NOTE | 2021-10-25 03:30 | NUR ---
INSPECTOR OPTICAL INSTRUMENT NOTE: ADMINISTERED ATIVAN 1MG IVP PER PRN ORDER FOR RESTLESSNESS/ANXIETY
[2021-10-25 04:00] VITALS: BP 147/77
--- NOTE | 2021-10-25 04:31 | NUR ---
HOT PIPE GAUGER NOTE: REASSESSMENT RE: ATIVAN 1MG IVP. PATIENT IN NAD. RESTLESSNESS RESOLVED. SLEEPING, SNORING. RR EVEN AND UNLABORED.
[2021-10-25 04:43] VITALS: BP 147/77
[2021-10-25] MEDS ORDERED: methylPREDNISolone SOD SUCC 125 MG/2ML VIAL ONE (04:50)
[2021-10-25] MEDS: methylPREDNISolone SOD SUCC 125 MG/2ML VIAL IV SCH (04:50)
[2021-10-25] MEDS: PANTOPRAZOLE 40 MG TABLET.DR PO SCH (06:46)
--- NOTE | 2021-10-25 06:55 | NUR ---
BIOMASS PLANT MANAGER CLOSING NARCISO: PATIENT RESTLESS THROUGHOUT MAJORITY OF THE NIGHT. ADMINISTERED ATIVAN 1MG IVP X2 PER PRN ORDER THIS SHIFT WITH SOME EFFECTIVENESS. ALERT AND ORIENTED TO PERSON AND PLACE. UNCLEAR SPEECH. PATIENT ATTEMPTING TO GET OOB AND AMBULATE ON HER OWN. BILATERAL SOFT WRIST RESTRAINTS IN PLACE D/T PULLING ON IV LINES AND NC. NC IN PLACE, O2 AT 5LPM. PATIENT WITH RHONCHI SCATTERED THROUGHOUT BILATERAL LUNG ALANIS AND DIMINISHED TO BASES. TELEMETRY READING SR 74. R GROIN HD CATH DRESSING INTACT. JOHNSON MIDLINE SL FLUSHED AND PATENT. NO S/SX OF ERYTHEMA/INFILTRATION TO OR SURROUNDING INSERTION SITE. DURING BRIEF CHANGE PATIENT'S BACK AND SACRUM ASSESSED AND NO WOUNDS OBSERVED. BED IN LOW/LOCKED POSITION. SIDE RAILS UP X2. HOB ELEVATED TO SEMI-FOWLERS POSITION. CALL LIGHT WITHIN REACH.
--- NOTE | 2021-10-25 07:30 | NUR ---
RN NOTES ON TELE MONITOR CURRENTLY READING SINUS RHYTHM AT 66BPM.
--- NOTE | 2021-10-25 07:30 | NUR ---
NECKTIE CENTRALIZING MACHINE OPERATOR CLOSING NOTES PATIENT ON BED RESTING AND A/O X2 WITH CONFUSION. ON O2 AT 5LPM VIA NASAL CANNULA TOLERATING WELL. NO SOB NOTED. NOT IN DISTRESS. WITH NO COMPLAINTS OF PAIN OR DISCOMFORT AT THIS TIME. WITH IV ACCESS AT RIGHT UPPER ARM MIDLINE SALINE LOCKED, PATENT AND INTACT. WITH HD CATH AT RIGHT GROIN, DRESSING IS DRY AND INTACT. ON TELE MONITOR CURRENTLY READING SINUS RHYTHM AT 70BPM. SAFETY MEASURES IN PLACED. CALL LIGHT WITHIN REACH. BED ON LOWEST LOCKED POSITION, SIDE RAILS UP X2. WILL ENDORSE TO NEXT SHIFT FOR SMITH.
--- NOTE | 2021-10-25 07:30 | NUR ---
DORMITORY COUNSELOR OPENING NOTES RECEIVED PATIENT ON BED RESTING AND A/O X2. ON O2 AT 5LPM VIA NASAL CANNULA TOLERATING WELL. NO SOB NOTED. NOT IN DISTRESS. WITH NO COMPLAINTS OF PAIN OR DISCOMFORT AT THIS TIME. WITH IV ACCESS AT RIGHT UPPER ARM MIDLINE SALINE LOCKED, PATENT AND INTACT. WITH HD CATH AT RIGHT GROIN, DRESSING IS DRY AND INTACT. SAFETY MEASURES IN PLACED. CALL LIGHT WITHIN REACH. BED ON LOWEST LOCKED POSITION, SIDE RAILS UP X2. WILL CONTINUE TO MONITOR.
[2021-10-25 07:35] LABS: BASOPHILS % (AUTO) 0.1 % (0.0-2.0); EOSINOPHILS % (AUTO) 0.1 % (0.0-6.0); HEMATOCRIT 35 % (33-45); HEMOGLOBIN 11.1 g/dL (11.5-14.8); LYMPHOCYTES # (AUTO) 0.6 K/uL (0.8-4.8); LYMPHOCYTES % (AUTO) 10.1 % (20.0-44.0); MEAN CORPUSCULAR HGB CONC 32 g/dl (31.0-36.0); MEAN CORPUSCULAR VOLUME 90 fL (82-100); MONOCYTES # (AUTO) 0.3 K/uL (0.1-1.30); MONOCYTES % (AUTO) 4.5 % (2.0-12.0); NEUTROPHILS # (AUTO) 5.1 K/uL (1.8-8.9); NEUTROPHILS % (AUTO) 85.2 % (43.0-81.0); PLATELET COUNT (AUTO) 92 K/uL (150-450); RED BLOOD CELL COUNT(AUTO) 3.86 MIL/uL (4.0-5.2)
[2021-10-25 07:53] LABS: CALCIUM, SERUM 8.3 mg/dL (8.5-10.1); CREATININE 2.2 mg/dL (0.6-1.3); POTASSIUM 4.7 mmol/L (3.5-5.1)
[2021-10-25 08:00] VITALS: BP 154/96
[2021-10-25] MEDS: CEFTRIAXONE 1 G in IV D5W 50 ML IV SCH (09:08)
--- NOTE | 2021-10-25 09:27 | NUR ---
RN NOTES PATIENT WAS AGITATED AND RESTLESS. ATIVAN GIVEN FOR AGITATION.
[2021-10-25] MEDS: THIAMINE HCL 100 MG TABLET PO SCH (09:28)
[2021-10-25] MEDS: FOLIC ACID 1 MG TABLET PO SCH (09:28)
[2021-10-25] MEDS: METOPROLOL SUCCINATE 25 MG TAB.SR.24H PO SCH (09:28)
[2021-10-25] MEDS: CHLORDIAZEPOXIDE HCL 25 MG CAPSULE PO SCH ×2 (09:28→16:08)
--- NOTE | 2021-10-25 11:00 | NUR ---
SS consult: SS consult requested for homelessness. The pt. is a 61 year old female who presented to the ED with complaints of dyspnea per EM. SW met with pt. at bedside. The pt. is sleeping and not arousable through verbal cues. SW spoke with pt.'s nurse who stated that the pt. had been restless anxious and confused. Pt. was administered Ativan in the bowling alley operator hours. Per nurse, the pt.'s boyfriend calls every morning to get update about pt.s' condition. Per nurse, the boyfriend reported that he an the pt. have been living together for 30 years. Per nurse, the boyfriend stated that he does not have a call back number. SW requested that boyfriend be given SW number so we can discuss discharge planning. Nurse is agreeable. SW will remain available and follow up to complete safe & proper DC planning. SW will provide homeless resources and have pt. sign homeless waiver.
[2021-10-25 11:02] LABS: LYMPHOCYTES % (MANUAL) 10 % (16-48); MONOCYTES % (MANUAL) 3 % (0-11.0); NEUTROPHILS % (MANUAL) 87 (42-76)
[2021-10-25 12:00] VITALS: BP 146/91
[2021-10-25] MEDS ORDERED: methylPREDNISolone SOD SUCC 125 MG/2ML VIAL IV SCH (13:00)
--- NOTE | 2021-10-25 19:33 | NUR ---
ENVELOPE SEALER OPENING NOTE PATIENT RECEIVED ASLEEP IN BED. A/0X2. NO S/S OF DISTRESS, BREATHING SYMMETRICAL. TELE MONITOR SHOWS SR 69. SAFETY MEASURES IN PLACE: BED AT LOWEST POSITION, RAILS UP X2, CALL GARCIA WITHIN REACH. WILL CONTINUE TO MONITOR.
[2021-10-25 20:00] VITALS: BP 150/90
[2021-10-25] MEDS: ENOXAPARIN SODIUM 30 MG/0.3 ML DISP.SYRIN SQ SCH (20:58)
--- NOTE | 2021-10-25 20:58 | NUR ---
GEEK SQUAD AGENT NOTE LOVENOX WILL BE HELD D/T PATIENT HAVING LOW PLATELET COUNT (92) WHICH HAS BEEN TRENDING DOWNWARD. PATIENT IS NOT ACTIVELY BLEEDING, BUT IS CURRENTLY RECEIVING DIALYSIS. I CONSULTED W/ CHARGE AND DIALYSIS NURSE - BOTH OF WHICH ARE AWARE MY HOLDING THE MEDICATION.
[2021-10-26] VITALS: BP 129/79
[2021-10-26] MEDS: LORAZEPAM INJ 2 MG/ML VIAL IV PRN ×2 (00:18→05:16)
[2021-10-26] MEDS: ALBUTEROL FS 2.5 MG/3 ML VIAL.NEB NEB SCH ×4 (01:19→20:04)
[2021-10-26] MEDS: IPRATROPIUM NEB FS 0.5 MG/2.5 ML AMPUL.NEB NEB SCH ×4 (01:19→20:04)
[2021-10-26 04:00] VITALS: BP 150/98
--- NOTE | 2021-10-26 06:15 | NUR ---
RECRUITMENT CONSULTANT CLOSING NOTE PATIENT ASLEEP IN BED. A/OX2. NO S/S OF DISTRESS, BREATHING SYMMETRICAL. JOHNSON MIDLINE INTACT AND PATENT. TELE MONITOR REVEALS SB 57 W BBB. PATIENT'S AGITATION HAS BEEN MITIGATED BY HER MD'S ORDER OF ATIVAN PRN ONLY AFTER NON-PHARM INTERVENTIONS FAIL TO REDUCE PATIENT'S AGITATION. SAFETY MEASURES IN PLACE: BED AT LOWEST POSITION, RAILS UP X2, CALL GARCIA WITHIN REACH. WILL ENDORSE TO NEXT SHIFT FOR SMITH.
--- NOTE | 2021-10-26 07:25 | NUR ---
PRODUCT RESPONSIBILITY LIAISON OPENING NOTES RECEIVED PATIENT IN BED WITH EYES CLOSED, ABLE TO BE WAKEN. A/OX2. EQUAL CHEST EXPANSION DURING RESPIRATIONS WITH NO S/SX OF DISTRESS NOTED. R UA MIDLINE INTACT AND PATENT. TELE MONITOR REVEALS SR 70 WITH BBB. NO CURRENT DISPLAY OF AGITATION OR DISCOMFORT AT THIS TIME. BILATERAL SOFT RESTRAINTS IN PLACE FOR PATIENT SAFETY. WILL CONTINUE TO CHECK CIRCULATION HOURLY. SAFETY MEASURES IN PLACE: BED AT LOWEST POSITION, RAILS UP X2, CALL GARCIA WITHIN REACH. WILL CONTINUE TO MONITOR PATIENT
[2021-10-26] MEDS: PANTOPRAZOLE 40 MG TABLET.DR PO SCH (07:30)
[2021-10-26 07:53] LABS: CALCIUM, SERUM 8.1 mg/dL (8.5-10.1); CREATININE 1.9 mg/dL (0.6-1.3); POTASSIUM 4.4 mmol/L (3.5-5.1)
[2021-10-26 08:00] VITALS: BP 138/79
--- NOTE | 2021-10-26 08:00 | NUR ---
CAREER SERVICES ASSISTANT NOTES MORNING MEDS ARE HELD. PENDING HEMODIALYSIS THIS MORNING. PATIENT IS AT RISK FOR HYPOTENSION AND MEDS WILL BE WASTED DURING HEMODIALYSIS. WILL CONTINUE TO MONITOR PATIENT.
[2021-10-26] MEDS: THIAMINE HCL 100 MG TABLET PO SCH (09:00)
[2021-10-26] MEDS: CHLORDIAZEPOXIDE HCL 25 MG CAPSULE PO SCH (09:00)
[2021-10-26] MEDS: FOLIC ACID 1 MG TABLET PO SCH (09:00)
[2021-10-26] MEDS: METOPROLOL SUCCINATE 25 MG TAB.SR.24H PO SCH (09:00)
[2021-10-26] MEDS: CEFTRIAXONE 1 G in IV D5W 50 ML IV SCH (09:00)
--- NOTE | 2021-10-26 09:19 | NUR ---
TOPOGRAPHICAL SURVEYOR NOTES PATIENT IS STARTED ON HEMODIALYSIS. NO COMPLICATIONS NOTED AT THIS TIME. WILL CONTINUE TO MONITOR
[2021-10-26] MEDS ORDERED: LORAZEPAM INJ 2 MG/ML VIAL IV PRN (10:00)
[2021-10-26 16:00] VITALS: BP 141/86
--- NOTE | 2021-10-26 18:50 | NUR ---
RESTAURANT AREA MANAGER CLOSING NOTES PATIENT IN BED WITH EYES CLOSED, ABLE TO BE WAKEN. A/OX2. EQUAL CHEST EXPANSION DURING RESPIRATIONS WITH NO S/SX OF DISTRESS NOTED. R UA MIDLINE INTACT AND PATENT. TELE MONITOR REVEALS SR 69 WITH BBB. NO CURRENT DISPLAY OF AGITATION OR DISCOMFORT AT THIS TIME. SAFETY MEASURES IN PLACE: BED AT LOWEST POSITION, RAILS UP X2, CALL GARCIA WITHIN REACH. WILL ENDORSE TO ROCK BREAKER NURSE FOR SMITH
--- NOTE | 2021-10-26 18:50 | NUR ---
SENIOR INFORMATION SECURITY ANALYST OPENING NOTES PATIENT IN BED WITH EYES CLOSED, ABLE TO BE WAKEN. A/OX2. EQUAL CHEST EXPANSION DURING RESPIRATIONS WITH NO S/SX OF DISTRESS NOTED. R UA MIDLINE INTACT AND PATENT. TELE MONITOR REVEALS SR 69 WITH BBB. NO CURRENT DISPLAY OF AGITATION OR DISCOMFORT AT THIS TIME. SAFETY MEASURES IN PLACE: BED AT LOWEST POSITION, RAILS UP X2, CALL GARCIA WITHIN REACH. WILL ENDORSE TO PUNCHBOARD STUFFER NURSE FOR SMITH
--- NOTE | 2021-10-26 19:37 | NUR ---
SENIOR ADMINISTRATIVE SUPPORT OPENING NOTE PATIENT RECEIVED IN BED ASLEEP. A/OX2. NO S/S OF DISTRESS, BREATHING SYMMETRICAL. JOHNSON MIDLINE INTACT AND PATENT. TELE MONITOR REVEALS SR 69 W/ BBB. SAFETY MEASURES IN PLACE: BED AT LOWEST POSITION, RAILS UP X2, CALL GARCIA WITHIN REACH. WILL CONTINUE TO MONITOR.
[2021-10-26 20:00] VITALS: BP 138/103
[2021-10-26] MEDS: ENOXAPARIN SODIUM 30 MG/0.3 ML DISP.SYRIN SQ SCH (20:19)
[2021-10-27] VITALS: BP 134/72
[2021-10-27] MEDS: IPRATROPIUM NEB FS 0.5 MG/2.5 ML AMPUL.NEB NEB SCH ×4 (01:30→20:02)
[2021-10-27] MEDS: ALBUTEROL FS 2.5 MG/3 ML VIAL.NEB NEB SCH ×4 (01:30→20:02)
--- NOTE | 2021-10-27 01:41 | NUR ---
PT REFUSED BREATHING TX AT THIS TIME. RN IS AWARE.
[2021-10-27 04:00] VITALS: BP 147/92
--- NOTE | 2021-10-27 06:23 | NUR ---
ARBORIST CLOSING NOTE PATIENT IN BED ASLEEP. A/OX2. NO S/S OF DISTRESS, BREATHING SYMMETRICAL. JOHNSON MIDLINE INTACT AND PATENT. TELE MONITOR REVEALS SR 67 W/ BBB. SAFETY MEASURES IN PLACE: BED AT LOWEST POSITION, RAILS UP X2, CALL GARCIA WITHIN REACH. WILL CONTINUE TO MONITOR. Addendum: 10/27/21 at 0625 by CARMEN VASQUEZ RN WILL ENDORSE TO FOLLOWING SHIFT FOR SMITH.
[2021-10-27] MEDS: PANTOPRAZOLE 40 MG TABLET.DR PO SCH ×2 (07:30→08:48)
--- NOTE | 2021-10-27 07:37 | NUR ---
EVENT OPERATIONS MANAGER OPENING NOTE Patient in bed, asleep. A/O x 2. On O2 at 3 LPM via NC, breathing evenly and unlabored. No SOB or s/s of distress noted. IV access on JOHNSON midline #18G, intact and patent. Right femoral catheter noted. On tele monitoring showing SR, HR on the 60's. Safety precautions in place: bed in low, locked position; siderails up x 2; call light within reach. Will continue to monitor.
[2021-10-27 07:46] LABS: CALCIUM, SERUM 7.5 mg/dL (8.5-10.1); CREATININE 1.8 mg/dL (0.6-1.3); POTASSIUM 3.9 mmol/L (3.5-5.1)
[2021-10-27] MEDS: THIAMINE HCL 100 MG TABLET PO SCH ×2 (08:48→09:00)
[2021-10-27] MEDS: FOLIC ACID 1 MG TABLET PO SCH ×2 (08:48→09:00)
[2021-10-27] MEDS: METOPROLOL SUCCINATE 25 MG TAB.SR.24H PO SCH ×2 (08:49→09:00)
--- NOTE | 2021-10-27 09:48 | NUR ---
RN NOTE Patient refused all AM medications.
--- NOTE | 2021-10-27 19:30 | NUR ---
LEGAL SERVICES MANAGER OPENING NOTE RECEIVED PT IN BED ASLEEP, EASILY AROUSEABLE. A/O X2. ON O2 AT 3 LPM VIA NC, O2 SAT 100%. NO SOB OR S/S OF RESPIRATORY DISTRESS NOTED. IV ACCESS JOHNSON MIDLINE 18 GAUGE, INTACT AND PATENT. RIGHT FEMORAL CATHETER INTACT. EXTERNAL CUSHION PADDER READING SR 82. SAFETY PRECAUTIONS IN PLACE. BED IN LOWEST LOCKED POSITION, HOB ELEVATED, SIDE RAILS UP X2, AND CALL LIGHT AND TABLE WITHIN REACH. WILL CONTINUE WITH PLAN OF CARE.
--- NOTE | 2021-10-27 19:50 | NUR ---
DRYERMAN/WOMAN CLOSING NOTE Patient in bed, asleep. A/O x 2. On O2 at 3 LPM via NC, breathing evenly and unlabored. No SOB or s/s of distress noted. IV access on JOHNSON midline #18G, intact and patent. Right femoral catheter noted. Tele box removed, refusing to put back on. Patient kept clean and dry. Safety precautions maintained: bed in low, locked position; siderails up x 2; call light within reach. Will endorse to retail shift supervisor nurse for SMITH.
[2021-10-27 20:00] VITALS: BP 128/72
[2021-10-27] MEDS: ENOXAPARIN SODIUM 30 MG/0.3 ML DISP.SYRIN SQ SCH (20:51)
[2021-10-28] VITALS: BP 144/87
[2021-10-28] MEDS: IPRATROPIUM NEB FS 0.5 MG/2.5 ML AMPUL.NEB NEB SCH ×4 (01:30→19:56)
[2021-10-28] MEDS: ALBUTEROL FS 2.5 MG/3 ML VIAL.NEB NEB SCH ×4 (01:30→19:56)
[2021-10-28 04:00] VITALS: BP 136/71
--- NOTE | 2021-10-28 06:36 | NUR ---
BLEACH BOILER PACKER CLOSING NOTE PT IN BED ASLEEP, EASILY AROUSEABLE. A/O X2. ON O2 AT 3 LPM VIA NC, O2 SAT 100%. NO SOB OR S/S OF RESPIRATORY DISTRESS NOTED. IV ACCESS JOHNSON MIDLINE 18 GAUGE, INTACT AND PATENT. RIGHT FEMORAL CATHETER INTACT. EXTERNAL STEAM TURBINE OPERATOR READING SR WITH BBB 80 BPM. ALL NEEDS MET AT THIS TIME. SAFETY PRECAUTIONS IN PLACE AT ALL TIMES. BED IN LOWEST LOCKED POSITION, HOB ELEVATED, SIDE RAILS UP X2, AND CALL LIGHT AND TABLE WITHIN REACH. WILL ENDORSE TO ONCOMING NURSE FOR [facility].
--- NOTE | 2021-10-28 07:20 | NUR ---
ms rn received on bed, just sleeping,no distress noted, alert,oriented x3, responsive to questions,denies pain at this time, will monitor patient.
[2021-10-28 08:43] VITALS: BP 151/97
[2021-10-28 09:08] LABS: BASOPHILS % (AUTO) 0.1 % (0.0-2.0); EOSINOPHILS % (AUTO) 1.9 % (0.0-6.0); HEMATOCRIT 34 % (33-45); HEMOGLOBIN 10.9 g/dL (11.5-14.8); LYMPHOCYTES # (AUTO) 1.3 K/uL (0.8-4.8); LYMPHOCYTES % (AUTO) 36.3 % (20.0-44.0); MEAN CORPUSCULAR HGB CONC 32 g/dl (31.0-36.0); MEAN CORPUSCULAR VOLUME 88 fL (82-100); MONOCYTES # (AUTO) 0.4 K/uL (0.1-1.30); MONOCYTES % (AUTO) 11.7 % (2.0-12.0); NEUTROPHILS # (AUTO) 1.8 K/uL (1.8-8.9); PLATELET COUNT (AUTO) 62 K/uL (150-450); RED BLOOD CELL COUNT(AUTO) 3.85 MIL/uL (4.0-5.2); WHITE BLOOD COUNT (AUTO) 3.5 K/uL (4.3-11.0)
[2021-10-28 09:23] LABS: CREATININE 1.9 mg/dL (0.6-1.3); MAGNESIUM 2.1 mg/dL (1.8-2.4); PHOSPHORUS 4.2 mg/dL (2.5-4.9); POTASSIUM 4.2 mmol/L (3.5-5.1)
--- NOTE | 2021-10-28 09:30 | NUR ---
ms rn was seen by dr. padmini grijalva/ orders made and carried out.
[2021-10-28] MEDS: PANTOPRAZOLE 40 MG TABLET.DR PO SCH (09:56)
[2021-10-28] MEDS: THIAMINE HCL 100 MG TABLET PO SCH (09:56)
[2021-10-28] MEDS: FOLIC ACID 1 MG TABLET PO SCH (09:56)
[2021-10-28] MEDS: METOPROLOL SUCCINATE 25 MG TAB.SR.24H PO SCH (09:57)
--- NOTE | 2021-10-28 10:00 | NUR ---
ms rn still sleeping refusing meds.
[2021-10-28 11:03] LABS: BAND % (MANUAL) 3 % (0.0-5.0); EOSINOPHILS % (MANUAL) 5 % (0-4); LYMPHOCYTES % (MANUAL) 36 % (16-48); MONOCYTES % (MANUAL) 13 % (0-11.0); NEUTROPHILS % (MANUAL) 43 (42-76)
[2021-10-28] MEDS: TRAMADOL HCL 50 MG TABLET PO PRN (14:37)
[2021-10-28] MEDS: OLANZAPINE 5 MG TABLET PO PRN (14:37)
--- NOTE | 2021-10-28 18:35 | NUR ---
ms rn on bed, all needs attended,sleeping most of the day.
[2021-10-28 20:00] VITALS: BP 122/64
--- NOTE | 2021-10-28 20:00 | NUR ---
RN NOTE PT SLEEPING. RESTRAINTS OFF AT THIS TIME. NO ACUTE DISTRESS NOTED. WILL CONT TO MONITOR.
--- NOTE | 2021-10-28 22:35 | NUR ---
RN NOTE PT AWAKE, SITTING UP IN BED, ASKING FOR SOMETHING TO EAT. SNACKS GIVEN. PT IS WITHDRAWN AND DOES NOT ENGAGE IN CONVERSATION.
[2021-10-29] MEDS: OLANZAPINE 5 MG TABLET PO PRN (01:51)
[2021-10-29] MEDS: IPRATROPIUM NEB FS 0.5 MG/2.5 ML AMPUL.NEB NEB SCH ×4 (02:09→19:53)
[2021-10-29] MEDS: ALBUTEROL FS 2.5 MG/3 ML VIAL.NEB NEB SCH ×4 (02:09→19:53)
--- NOTE | 2021-10-29 06:45 | NUR ---
RN NOTE PT SLEPT WELL DURING THE NIGHT. NO ACUTE EVENTS NOTED. PT CONT TO REFUSE TELE MONITOR. NO ACUTE DISTRESS NOTED. SAFETY MEASURES MAINTAINED.
--- NOTE | 2021-10-29 07:30 | NUR ---
HABILITATION TRAINING SPECIALIST OPENING NOTES RECEIVED PATIENT ON BED RESTING AND A/O X2. ON O2 AT 3LPM VIA NASAL CANNULA TOLERATING WELL. NO SOB NOTED. NOT IN DISTRESS. REFUSED TELEMONITOR. WITH NO COMPLAINTS OF PAIN OR DISCOMFORT AT THIS TIME. WITH IV ACCESS AT RIGHT UPPER ARM MIDLINE SALINE LOCKED, PATENT AND INTACT. WITH RIGHT FEMORAL CATHETER FOR HEMODIALYSIS. SAFETY MEASURES IN PLACED. CALL LIGHT WITHIN REACH. BED ON LOWEST LOCKED POSITION, SIDE RAILS UP X2. WILL CONTINUE TO MONITOR.
[2021-10-29 08:00] VITALS: BP 149/90
[2021-10-29 08:12] LABS: BASOPHILS % (AUTO) 0.2 % (0.0-2.0); EOSINOPHILS % (AUTO) 4.4 % (0.0-6.0); HEMATOCRIT 36 % (33-45); HEMOGLOBIN 11.4 g/dL (11.5-14.8); LYMPHOCYTES # (AUTO) 1.4 K/uL (0.8-4.8); LYMPHOCYTES % (AUTO) 36.3 % (20.0-44.0); MEAN CORPUSCULAR HGB CONC 32 g/dl (31.0-36.0); MEAN CORPUSCULAR VOLUME 89 fL (82-100); MONOCYTES # (AUTO) 0.4 K/uL (0.1-1.30); MONOCYTES % (AUTO) 11.6 % (2.0-12.0); NEUTROPHILS # (AUTO) 1.8 K/uL (1.8-8.9); NEUTROPHILS % (AUTO) 47.5 % (43.0-81.0); PLATELET COUNT (AUTO) 64 K/uL (150-450); RED BLOOD CELL COUNT(AUTO) 4.01 MIL/uL (4.0-5.2); WHITE BLOOD COUNT (AUTO) 3.8 K/uL (4.3-11.0)
[2021-10-29 08:17] LABS: MAGNESIUM 1.9 mg/dL (1.8-2.4); PHOSPHORUS 3.6 mg/dL (2.5-4.9)
[2021-10-29] MEDS: FOLIC ACID 1 MG TABLET PO SCH (08:42)
[2021-10-29] MEDS: PANTOPRAZOLE 40 MG TABLET.DR PO SCH (08:42)
[2021-10-29] MEDS: THIAMINE HCL 100 MG TABLET PO SCH (08:42)
[2021-10-29] MEDS: METOPROLOL SUCCINATE 25 MG TAB.SR.24H PO SCH (08:44)
--- NOTE | 2021-10-29 11:31 | NUR ---
pt. benja johnston later. 94% spo2 on room air. Addendum: 10/29/21 at 1132 by JAMIL PORTILLO RT Amended: Links added.
[2021-10-29] MEDS: LORAZEPAM 1 MG TABLET PO PRN (12:48)
[2021-10-29 16:00] VITALS: BP 107/88
--- NOTE | 2021-10-29 19:10 | NUR ---
MS/RN OPENING NOTE RECEIVED PATIENT RESTING IN BED. ALERT AND ORIENTED X 2. ABLE TO MAKE NEEDS KNOWN. DENIES PAIN AT THIS TIME. CONTINUES ON ROOM AIR WITH NO S/SX OF RESPIRATORY DISTRESS NOTED. IV ACCESS TO RIGHT UPPER ARM MIDLINE INTACT, PATENT AND SALINE LOCKED. RIGHT FEMORAL HD ACCESS IN PLACE. TELE MONITOR CURRENTLY ON STAND BY. CONTINUES ON BILATERAL SOFT WRIST RESTRAINTS WITH POSITIVE CIRCULATION AND NO SKIN ISSUES NOTED. CALL LIGHT WITHIN REACH. ASPIRATION, FALL AND SAFETY PRECAUTIONS MAINTAINED. WILL CONTINUE TO MONITOR.
--- NOTE | 2021-10-29 19:30 | NUR ---
MANAGER INVENTORY MANAGEMENT CLOSING NOTES PATIENT ON BED RESTING AND A/O X2. ON ROOM AIR TOLERATING WELL. REFUSED TELEMONITOR. WITH NO COMPLAINTS OF PAIN OR DISCOMFORT AT THIS TIME. WITH IV ACCESS AT RIGHT UPPER ARM MIDLINE SALINE LOCKED, PATENT AND INTACT. WITH RIGHT FEMORAL CATHETER FOR HEMODIALYSIS. ON STATUS POST HEMODIALYSIS- HD NURSE REPORTED TO HAVE REMOVED 2L OF FLUID. SAFETY MEASURES IN PLACED. CALL LIGHT WITHIN REACH. BED ON LOWEST LOCKED POSITION, SIDE RAILS UP X2. WILL ENDORSE TO NEXT SHIFT FOR SMITH.
[2021-10-29 20:13] VITALS: BP 141/84
--- NOTE | 2021-10-29 21:00 | NUR ---
TELE/RN NOTE PATIENT CONTINUING TO REFUSE TELE MONITOR. BILATERAL SOFT WRIST RESTRAINTS OFF AT THIS TIME - PATIENT CURRENTLY RESTING COMFORTABLY AT THIS TIME.
[2021-10-30 00:21] VITALS: BP 135/83
[2021-10-30] MEDS: IPRATROPIUM NEB FS 0.5 MG/2.5 ML AMPUL.NEB NEB SCH ×4 (01:46→19:00)
[2021-10-30] MEDS: ALBUTEROL FS 2.5 MG/3 ML VIAL.NEB NEB SCH ×4 (01:46→19:00)
[2021-10-30 04:49] VITALS: BP 140/71
[2021-10-30 06:02] LABS: BASOPHILS % (AUTO) 0.3 % (0.0-2.0); EOSINOPHILS % (AUTO) 3.2 % (0.0-6.0); HEMATOCRIT 35 % (33-45); HEMOGLOBIN 11.4 g/dL (11.5-14.8); LYMPHOCYTES # (AUTO) 1.6 K/uL (0.8-4.8); LYMPHOCYTES % (AUTO) 35.5 % (20.0-44.0); MEAN CORPUSCULAR HGB CONC 32 g/dl (31.0-36.0); MEAN CORPUSCULAR VOLUME 89 fL (82-100); MONOCYTES # (AUTO) 0.5 K/uL (0.1-1.30); MONOCYTES % (AUTO) 11.8 % (2.0-12.0); NEUTROPHILS # (AUTO) 2.2 K/uL (1.8-8.9); NEUTROPHILS % (AUTO) 49.2 % (43.0-81.0); PLATELET COUNT (AUTO) 62 K/uL (150-450); RED BLOOD CELL COUNT(AUTO) 3.95 MIL/uL (4.0-5.2); WHITE BLOOD COUNT (AUTO) 4.5 K/uL (4.3-11.0)
--- NOTE | 2021-10-30 06:10 | NUR ---
TELE/RN CLOSING NOTE PATIENT CURRENTLY RESTING IN BED. ALERT AND ORIENTED X 2. ABLE TO MAKE NEEDS KNOWN. DENIES PAIN AT THIS TIME. CONTINUES ON ROOM AIR WITH NO S/SX OF RESPIRATORY DISTRESS NOTED. IV ACCESS TO RIGHT UPPER ARM MIDLINE INTACT, PATENT AND SALINE LOCKED. RIGHT FEMORAL HD ACCESS IN PLACE. TELE MONITOR CURRENTLY ON STAND BY D/T PATIENT REFUSAL. CONTINUES ON BILATERAL SOFT WRIST RESTRAINTS WITH POSITIVE CIRCULATION AND NO SKIN ISSUES NOTED. CALL LIGHT WITHIN REACH. ASPIRATION, FALL AND SAFETY PRECAUTIONS MAINTAINED. WILL ENDORSE PLAN OF CARE TO ONCOMING SHIFT.
[2021-10-30 06:27] LABS: MAGNESIUM 1.9 mg/dL (1.8-2.4); PHOSPHORUS 2.7 mg/dL (2.5-4.9)
[2021-10-30 06:41] LABS: ALBUMIN 2.1 g/dL (3.4-5.0); BILIRUBIN,TOTAL 0.6 mg/dL (0.2-1.0); CREATININE 1.6 mg/dL (0.6-1.3); POTASSIUM 4.1 mmol/L (3.5-5.1)
[2021-10-30 06:42] LABS: TOTAL PROTEIN, SERUM 5.2 g/dL (6.4-8.2)
--- NOTE | 2021-10-30 07:15 | NUR ---
SEAFOOD PACKER OPENING NOTES RECEIVED PATIENT IN BED, AWAKE, A/O X2, VERBALLY RESPONSIVE. NO SIGNS OF ACUTE DISTRESS NOTED. ON ROOM AIR TOLERATING WELL. DENIES ANY PAIN OR DISCOMFORT AT THIS TIME. TELE ON STANDBY. IV ACCESS ON JOHNSON MIDLINE #18G, SL, INTACT AND PATENT. RIGHT FEMORAL HD, INTACT. SAFETY MEASURES IN PLACE, BED LOCKED AND IN LOWEST POSITION. BED ALARM ON, CALL LIGHT PLACED WITHIN EASY REACH WILL CONTINUE TO MONITOR.
[2021-10-30 07:47] LABS: LYMPHOCYTES % (MANUAL) 34 % (16-48); MONOCYTES % (MANUAL) 3 % (0-11.0); NEUTROPHILS % (MANUAL) 51 (42-76); REACTIVE LYMPHOCYTES 12 % (0-0)
[2021-10-30 08:00] VITALS: BP 145/92
[2021-10-30] MEDS: FOLIC ACID 1 MG TABLET PO SCH (08:01)
[2021-10-30] MEDS: PANTOPRAZOLE 40 MG TABLET.DR PO SCH (08:01)
[2021-10-30] MEDS: THIAMINE HCL 100 MG TABLET PO SCH (08:01)
[2021-10-30] MEDS: METOPROLOL SUCCINATE 25 MG TAB.SR.24H PO SCH (08:02)
[2021-10-30 16:00] VITALS: BP 140/87
[2021-10-30] MEDS: LORAZEPAM 1 MG TABLET PO PRN (18:25)
--- NOTE | 2021-10-30 18:53 | NUR ---
EXECUTIVE ASSOCIATE CLOSING NOTES PATIENT RESTING IN BED, AWAKE, A/O X2, VERBALLY RESPONSIVE. NO SIGNS OF ACUTE DISTRESS NOTED. REMAINS ON ROOM AIR TOLERATING WELL. NO C/O PAIN OR DISCOMFORT AT THIS TIME. TELE ON STANDBY, STILL REFUSES TO PUT IT ON. IV ACCESS ON JOHNSON MIDLINE #18G, SL, INTACT AND PATENT. RIGHT FEMORAL HD, INTACT. SAFETY MEASURES MAINTAINED, BED LOCKED AND IN LOWEST POSITION. BED ALARM ON, CALL LIGHT PLACED WITHIN EASY REACH. WILL ENDORSE TO NEXT SHIFT.
--- NOTE | 2021-10-30 19:15 | NUR ---
HRIS COORDINATOR OPENING NOTES PATIENT LAYING AWAKE IN BED. A/O X2. PATIENT WITH REGULAR AND UNLABORED BREATHING, ON ROOM AIR TOLERATED WELL. NO SIGNS AND SYMPTOMS OF DISCOMFORT AT THIS TIME. NO COMPLAINS OF PAIN OR DISCOMFORT AT THIS TIME. IV ACCESS JOHNSON MIDLINE SL . IV ACCESS PATENT AND INTACT. SAFETY PRECAUTIONS ENFORCED WITH BED LOCKED AND AT LOWEST POSITION. SIDERAILS UP X2. CALL LIGHT WITHIN REACH AT ALL TIMES. WILL CONTINUE TO MONITOR PATIENT.
[2021-10-30 20:00] VITALS: BP 142/85
[2021-10-31] VITALS: BP 152/92
[2021-10-31] MEDS: IPRATROPIUM NEB FS 0.5 MG/2.5 ML AMPUL.NEB NEB SCH ×4 (01:30→19:30)
[2021-10-31] MEDS: ALBUTEROL FS 2.5 MG/3 ML VIAL.NEB NEB SCH ×4 (01:30→19:30)
[2021-10-31 04:00] VITALS: BP 145/93
--- NOTE | 2021-10-31 07:07 | NUR ---
COSMETICS AND TOILETRIES SALESPERSON OPENING NOTES PATIENT STILL LAYING AWAKE IN BED. A/O X2. PATIENT WITH REGULAR AND UNLABORED BREATHING, ON ROOM AIR TOLERATED WELL. NO SIGNS AND SYMPTOMS OF DISCOMFORT AT THIS TIME. NO COMPLAINS OF PAIN OR DISCOMFORT AT THIS TIME. IV ACCESS JOHNSON MIDLINE SL . IV ACCESS PATENT AND INTACT. SAFETY PRECAUTIONS ENFORCED WITH BED LOCKED AND AT LOWEST POSITION. SIDERAILS UP X2. CALL LIGHT WITHIN REACH AT ALL TIMES. WILL ENDORSE CONTINUITY OF CARE TO DAY SHIFT NURSE. Addendum: 10/31/21 at 0708 by KEYLA SMITH RN TELE CLOSING NOTES
--- NOTE | 2021-10-31 07:15 | NUR ---
LEARNING CONSULTANT OPENING NOTES RECEIVED PATIENT IN BED, ASLEEP, EASILY AROUSED, A/O X2, VERBALLY RESPONSIVE. NO SIGNS OF ACUTE DISTRESS NOTED. ON ROOM AIR TOLERATING WELL. NO S/SX OF PAIN OR DISCOMFORT AT THIS TIME. TELE ON STANDBY. IV ACCESS ON JOHNSON MIDLINE #18G, SL, INTACT AND PATENT. RIGHT FEMORAL HD, INTACT. SAFETY MEASURES IN PLACE, BED LOCKED AND IN LOWEST POSITION. BED ALARM ON, CALL LIGHT PLACED WITHIN EASY REACH WILL CONTINUE TO MONITOR.
[2021-10-31] MEDS: PANTOPRAZOLE 40 MG TABLET.DR PO SCH (07:42)
[2021-10-31 08:00] VITALS: BP 121/69
[2021-10-31] MEDS: FOLIC ACID 1 MG TABLET PO SCH (08:00)
[2021-10-31] MEDS: THIAMINE HCL 100 MG TABLET PO SCH (08:00)
[2021-10-31] MEDS: METOPROLOL SUCCINATE 25 MG TAB.SR.24H PO SCH (08:01)
[2021-10-31 08:03] LABS: ALBUMIN 2.1 g/dL (3.4-5.0); BILIRUBIN,TOTAL 0.7 mg/dL (0.2-1.0); CALCIUM, SERUM 8.3 mg/dL (8.5-10.1); CREATININE 1.8 mg/dL (0.6-1.3); POTASSIUM 4.4 mmol/L (3.5-5.1); TOTAL PROTEIN, SERUM 5.7 g/dL (6.4-8.2)
--- NOTE | 2021-10-31 09:32 | NUR ---
WOUND CARE CONSULT: PT PRESENTS WITH FRAGILE SKIN AND MULTIPLE AREAS OF SCARRING WITH SKIN TEARS TO RT ARM. RECOMMENDATION MADE FOR SKIN PROTECTION AND WOUND CARE. DISCUSSED WITH NURSING STAFF. MD IN AGREEMENT WITH PLAN OF CARE.
--- NOTE | 2021-10-31 13:05 | NUR ---
RN NOTES HD NURSE ASHLEIGH STARTED HEMODIALYSIS FOR PATIENT.
[2021-10-31] MEDS ORDERED: IPRA0.2S9 NEB (14:17)
[2021-10-31] MEDS ORDERED: Folic Acid PO (14:17)
[2021-10-31] MEDS ORDERED: Olanzapine PO (14:17)
[2021-10-31 16:00] VITALS: BP 101/61
--- NOTE | 2021-10-31 16:05 | NUR ---
RN NOTES HEMODIALYSIS DONE. POS HD BP 105/75, HR 85. PT TOLERATED PROCEDURE WELL.
--- NOTE | 2021-10-31 18:30 | NUR ---
RN NOTES PATIENT WITH ORDER FOR TRANSFER TO [facility]. REPORT GIVEN TO TONYA Kumar RN [phone]. PATIENT WILL GO TO ROOM 4306. PATIENT REFUSED TO TAKE PHOTO OF SKIN ISSUES. WILL ENDORSE TO NEXT SHIFT.
--- NOTE | 2021-10-31 19:26 | NUR ---
ROTOFORMER BACKTENDER OPENING RECEIVED PATIENT IN BED, ROOM IN CLUTTER -- ENDORSED TO ME THAT PT. IS VERY MESSY. AMBULATORY, NO S/S OF APPARENT DISTRESS. NO C/O PAIN. AWAITING PICK-UP-- PT. FOR DISCHARGED.
[2021-10-31 20:00] VITALS: BP 113/89
--- NOTE | 2021-10-31 21:00 | NUR ---
SPORTS BOOK BOARD ATTENDANT NOTE PATIENT PICKED UP BY EMT AT THIS TIME. ID BAND DISCARDED. NO TELE MONITOR BOX ON PATIENT ANYMORE WHEN CHECKED. PATIENT R.UA MIDLINE LEFT IN PLACE FOR HIGHER LEVEL OF CARE. BELONGINGS SIGNED FOR. DISCHARGE FOLDER WITH THE CD GIVEN TO EMT PERSONNEL. PATIENT WAS IN STABLE CONDITION AND WAS AMBULATING. NO S/S OF APPARENT DISTRESS ON ROOM AIR. DENIES ANY PAIN. V/S FOLLOWS: BP- 113/89, P- 72, RR-17, T- 97.8, AND SATURATION 96% ON ROOM AIR. TAKEN DOWN VIA STRETCHER AND GOING TO [facility].
== END 2021-10-31 21:15 | disposition short-term general hospital (02) | DRG 133 ==
LOC: ER 13:15 → TRANSITION 10-21 01:12 → TELE 10-21 15:41
PROVIDERS: ADMIT Student in an Organized Health Care Education/Training Program; ATTEND Nurse Practitioner Acute Care
PROC: 05H533Z Insertion of Infusion Device into Right Subclavian Vein, Percutaneous Approach (ICD-10-PCS; 2021-10-23)
PROC: B546ZZA Ultrasonography of Right Subclavian Vein, Guidance (ICD-10-PCS; 2021-10-23)
PROC: 06HY33Z Insertion of Infusion Device into Lower Vein, Percutaneous Approach (ICD-10-PCS; principal; 2021-10-24)
PROC: 5A1D70Z Performance of Urinary Filtration, Intermittent, Less than 6 Hours Per Day (ICD-10-PCS; 2021-10-24)
DX: J96.01 Acute respiratory failure with hypoxia (principal); K76.7 Hepatorenal syndrome; N17.0 Acute kidney failure with tubular necrosis; I50.23 Acute on chronic systolic (congestive) heart failure; E44.0 Moderate protein-calorie malnutrition; E87.2 Acidosis; J15.6 Pneumonia due to other Gram-negative bacteria; D63.8 Anemia in other chronic diseases classified elsewhere; I35.0 Nonrheumatic aortic (valve) stenosis; F10.239 Alcohol dependence with withdrawal, unspecified; I21.A1 Myocardial infarction type 2; J44.0 Chronic obstructive pulmonary disease with (acute) lower respiratory infection; J44.1 Chronic obstructive pulmonary disease with (acute) exacerbation; E87.5 Hyperkalemia; I13.0 Hypertensive heart and chronic kidney disease with heart failure and stage 1 through stage 4 chronic kidney disease, or unspecified chronic kidney disease; N18.9 Chronic kidney disease, unspecified; Z20.822 Contact with and (suspected) exposure to COVID-19; E88.09 Other disorders of plasma-protein metabolism, not elsewhere classified; F17.210 Nicotine dependence, cigarettes, uncomplicated; Z88.0 Allergy status to penicillin; I42.9 Cardiomyopathy, unspecified; F41.9 Anxiety disorder, unspecified; Y90.9 Presence of alcohol in blood, level not specified; Z68.22 Body mass index [BMI] 22.0-22.9, adult; K70.30 Alcoholic cirrhosis of liver without ascites; F29 Unspecified psychosis not due to a substance or known physiological condition; I25.10 Atherosclerotic heart disease of native coronary artery without angina pectoris; J98.11 Atelectasis; Z82.49 Family history of ischemic heart disease and other diseases of the circulatory system; Z83.3 Family history of diabetes mellitus
CPT/HCPCS: 36410; 36415; 71045-TC; 76770-TC; 80048-TC; 80053-TC; 80076-TC; 81001; 83605-TC; 83735-TC; 83880; 84100-TC; 84443-TC; 84484-TC; 85025-TC; 86706; 87040-TC; 87081-TC; 87340; 90935-TC; 93307-TC; 94799-TC; 97112-TC; 97116-TC; 97530-TC; A4216; A4565; C1750; C9803; G0378; J0456; J0696; J1650; J1940; J2060; J2405; J2930; J3490; J7030; J7040; J7060; P9047

== ENCOUNTER 2021-11-24 14:53 | Inpatient (IN) | payer OTHER ==
[~2021-11-24] VITALS: Ht 170.2 cm; Wt 63.3 kg
[~2021-11-24 14:53] MED LIST changes: -FAMO20TA8 PO; -FOLI1TAB16 PO; +Folic Acid PO; -HYDR-4354 PO; -HYDR-4384 PO; +IPRA0.2S9 NEB; -LACT10SO6 PO; +LOSA25TA27 PO; +METO25TA4 PO; -ONDA4TAB5 PO; +Olanzapine PO; -PROP10TA68 PO; -SPIR50TA PO
--- NOTE | 2021-11-24 15:30 | NUR ---
NEGRITA RA86 From Home "cut the tip of her catheter access Right SC. +Alcohol". The patient is alert and oriented x2. Denies pain. In room air and denies SOB. Respiration regular and unlabored. Will continue to monitor the patient.
--- NOTE | 2021-11-24 15:38 | NUR ---
COVID ANTIGEN SWAB DONE AND SENT TO THE LAB
[2021-11-24 15:44] LABS: BASOPHILS # (AUTO) 0.1 K/uL (0.0-0.2); BASOPHILS % (AUTO) 1.4 % (0.0-2.0); EOSINOPHILS % (AUTO) 4.5 % (0.0-6.0); HEMATOCRIT 32 % (33-45); HEMOGLOBIN 10.3 g/dL (11.5-14.8); LYMPHOCYTES # (AUTO) 1.7 K/uL (0.8-4.8); LYMPHOCYTES % (AUTO) 42.4 % (20.0-44.0); MEAN CORPUSCULAR HGB CONC 32 g/dl (31.0-36.0); MEAN CORPUSCULAR VOLUME 91 fL (82-100); MONOCYTES # (AUTO) 0.4 K/uL (0.1-1.30); MONOCYTES % (AUTO) 11.3 % (2.0-12.0); NEUTROPHILS # (AUTO) 1.6 K/uL (1.8-8.9); NEUTROPHILS % (AUTO) 40.4 % (43.0-81.0); PLATELET COUNT (AUTO) 121 K/uL (150-450); RED BLOOD CELL COUNT(AUTO) 3.53 MIL/uL (4.0-5.2); WHITE BLOOD COUNT (AUTO) 3.9 K/uL (4.3-11.0)
[2021-11-24] MEDS ORDERED: SEROQUEL (16:09)
--- NOTE | 2021-11-24 16:14 | NUR ---
URINE COLLECTED AND SENT TO THE LAB
[2021-11-24 16:17] LABS: CALCIUM, SERUM 8.8 mg/dL (8.5-10.1); CARBON DIOXIDE 23 mmol/L (21-32); CHLORIDE 117 mmol/L (98-107); CREATININE 1.5 mg/dL (0.6-1.3); GLUCOSE 85 mg/dL (74-106); POTASSIUM 4.4 mmol/L (3.5-5.1); SODIUM SERUM 150 mmol/L (136-145); UREA NITROGEN, BLOOD 56 mg/dL (7-18)
[2021-11-24 16:34] LABS: ALANINE AMINOTRANSFERASE 76 U/L (12-78); ALBUMIN 2.9 g/dL (3.4-5.0); ALCOHOL, BLOOD 99 mg/dL (0-0); ALKALINE PHOSPHATASE 115 U/L (46-116); ASPARTATE AMINOTRANSFERASE 63 U/L (15-37); BILIRUBIN,DIRECT 0.3 mg/dL (0.0-0.2); BILIRUBIN,TOTAL 0.7 mg/dL (0.2-1.0); TOTAL PROTEIN, SERUM 6.6 g/dL (6.4-8.2)
[2021-11-24 16:35] LABS: ACETAMINOPHEN < 0 ug/ml (10-30)
[2021-11-24] MEDS ORDERED: OLANZAPINE 10 MG VIAL IM ONE ×3 (17:00→19:00)
[2021-11-24 17:27] LABS: BILIRUBIN,URINE NEGATIVE (NEGATIVE); COLOR,URINE YELLOW (YELLOW); LEUKOCYTE ESTERASE ,URINE NEGATIVE (NEGATIVE); NITRITE, URINE NEGATIVE (NEGATIVE); PROTEIN,URINE >=300 mg/dl (NEGATIVE); UGLUCOSE NEGATIVE (NEGATIVE); UROBILINOGEN,URINE 0.2 EU/dL (0.2)
--- NOTE | 2021-11-24 17:29 | NUR ---
GOT BED 308
[2021-11-24 17:39] LABS: RBC,URINE 81-100 /HPF (0-2)
[2021-11-24 17:40] LABS: BACTERIA,URINE 3+ /HPF (None Seen); WBC,URINE 0-2 /HPF (0-3); YEAST,URINE Few /HPF (None Seen)
--- NOTE | 2021-11-24 18:01 | NUR ---
REPORT GIVEN TO NURSE SANCHEZ FOR SMITH
--- NOTE | 2021-11-24 18:37 | NUR ---
THE PATIENT IS TAKEN TO ROOM 308 IN STABLE CONDITION AND PER POLICY
--- NOTE | 2021-11-24 18:54 | NUR ---
Patient arrived via gurney from ER at 1850pm. Patient AO X 1-2, appears restless, confused, and was having episodes of combativeness towards staffs, breathing even and unlabored. Admitting hospitalist made aware of the patient's arrival with new orders for Olanzapine 10mg IM X 1 dose. Patient has HD catheter malfunction (patient +alcohol and cut her dialysis catheter, unable to interview patient regarding her last dialysis session, will endorse). Patient refused to have vital signs checked at this time, explained risks and benefits thrice and hospital protocol, still refused. Skin intact, warm to touch, no pallor or cyanosis note, further skin assessment not done due to patient was aggressive and uncooperative. Patient oriented with use of call lights, use of bed control, use of telephone and tv control, also introduces STORE PROTECTION SPECIALIST and RN assigned for today, unable to understand, will explain and orient patient again. All belongings written in the inventory list. All needs attended, kept clean and dry, call light left within reach, safety precautions in place, brakes locked, side rails up X 2, will endorse to next shift for continuity of care.
[2021-11-24] MEDS ORDERED: Z GUARD REMEDY 4 OZ OINT TP PRN (19:30)
[2021-11-24] MEDS ORDERED: IV D5W 1,000 ML IV PRN (19:30)
[2021-11-24] MEDS ORDERED: ENOXAPARIN SODIUM 40 MG/0.4 ML DISP.SYRIN SQ SCH (19:30)
[2021-11-24] MEDS ORDERED: ONDANSETRON HCL/PF 4 MG/2 ML VIAL IVP PRN (19:30)
[2021-11-24 20:00] VITALS: BP 131/81
[2021-11-24] MEDS ORDERED: Thiamine 100 MG in IV D5W 50 ML IV SCH (20:00)
--- NOTE | 2021-11-24 20:54 | NUR ---
ORDERLY NOTES TROP 358. NOTIFIED YUMIKO 3D ARTIST FOR EPIC. WITH NEW ORDERS MADE. ORDERS NOTED AND CARRIED OUT. WILL CONTINUE TO MONITOR.
[2021-11-24] MEDS ORDERED: LORAZEPAM INJ 2 MG/ML VIAL IV PRN ×2 (21:00)
--- NOTE | 2021-11-24 21:14 | NUR ---
SIGNAL MAINTAINER HELPER NOTES PT REFUSED TO HAVE EKG. EXPLAINED TO PT IMPORTANCE OF EKG IN HER POC BUT PT STILL REFUSED. WILL CONTINUE TO MONITOR
--- NOTE | 2021-11-24 21:20 | NUR ---
RT ekg not done. pt not compliant. [place], aware. will try again later
[2021-11-25] VITALS: BP 144/73
[2021-11-25 04:00] VITALS: BP 147/83
--- NOTE | 2021-11-25 04:00 | NUR ---
CITY ROUTE DRIVER NOTES TRIED TO DO EKG AGAIN BUT PT REFUSED TO HAVE EKG. EXPLAINED TO PT IMPORTANCE OF EKG IN HER POC BUT PT STILL REFUSED. WILL CONTINUE TO MONITOR.
--- NOTE | 2021-11-25 05:38 | NUR ---
METEOROLOGICAL TECHNICIAN NOTES PT REFUSED TO HAVE BLOOD DRAW. EXPLAINED TO PT IMPORTANCE OF BLOOD DRAW IN HER POC BUT PT STILL REFUSED. WILL COME BACK TO TRY LATER PER LAB.
--- NOTE | 2021-11-25 06:21 | NUR ---
ASSIGNMENT MANAGER NOTES AWAKE & RESPONSIVE. STILL CONFUSED AND AGITATED AT TIMES. NOT IN ANY DISTRESS. NO SOB NOTED. DENIES ANY PAIN OR DISCOMFORT AT THIS TIME. ON TELE SR WITH BBB @ 94 WITH IVF INFUSING WELL. PT REFUSED TO HAVE MORNING CARE. MONITORED ACCORDINGLY. CALL LIGHT WITHIN REACH. BED IN LOWEST POSITION. SR UP X 3 WITH BED ALARM ON FOR SAFETY. WILL ENDORSE TO NEXT SHIFT.
--- NOTE | 2021-11-25 07:20 | NUR ---
ms rn received on bed,awake, sitter at bedside, restrain on at this time for safety, denies pain at this time,will monitor patient.
--- NOTE | 2021-11-25 09:00 | NUR ---
ms rn patient refused breakfast and am meds, will try to give later
[2021-11-25 10:35] LABS: BASOPHILS % (AUTO) 1.5 % (0.0-2.0); HEMATOCRIT 35 % (33-45); HEMOGLOBIN 11.1 g/dL (11.5-14.8); LYMPHOCYTES # (AUTO) 1.2 K/uL (0.8-4.8); LYMPHOCYTES % (AUTO) 42.7 % (20.0-44.0); MEAN CORPUSCULAR HGB CONC 32 g/dl (31.0-36.0); MEAN CORPUSCULAR VOLUME 91 fL (82-100); MONOCYTES # (AUTO) 0.3 K/uL (0.1-1.30); MONOCYTES % (AUTO) 9.4 % (2.0-12.0); NEUTROPHILS # (AUTO) 1.1 K/uL (1.8-8.9); NEUTROPHILS % (AUTO) 40.4 % (43.0-81.0); PLATELET COUNT (AUTO) 108 K/uL (150-450); RED BLOOD CELL COUNT(AUTO) 3.82 MIL/uL (4.0-5.2); WHITE BLOOD COUNT (AUTO) 2.8 K/uL (4.3-11.0)
[2021-11-25 10:56] LABS: CALCIUM, SERUM 9.1 mg/dL (8.5-10.1); POTASSIUM 4.1 mmol/L (3.5-5.1)
[2021-11-25 11:01] LABS: ALBUMIN 2.7 g/dL (3.4-5.0); BILIRUBIN,TOTAL 0.8 mg/dL (0.2-1.0); PHOSPHORUS 4.5 mg/dL (2.5-4.9); TOTAL PROTEIN, SERUM 6.3 g/dL (6.4-8.2)
[2021-11-25 11:02] LABS: CREATININE 1.4 mg/dL (0.6-1.3)
[2021-11-25 11:37] LABS: THYROID STIMULATING HORMONE 1.072 uIU/mL (0.358-3.74)
--- NOTE | 2021-11-25 11:55 | NUR ---
ms rn received critical troponin result - 200, dr fernandez is aware of high troponin levels
[2021-11-25 13:00] VITALS: BP 127/84
--- NOTE | 2021-11-25 14:00 | NUR ---
ms rn was able to give medications, patient was cooperative at this time
[2021-11-25] MEDS: THIAMINE HCL 100 MG TABLET PO SCH (14:10)
[2021-11-25] MEDS: PANTOPRAZOLE 40 MG VIAL IV SCH (14:10)
[2021-11-25] MEDS: METOPROLOL SUCCINATE 25 MG TAB.SR.24H PO SCH (14:11)
[2021-11-25] MEDS: LOSARTAN POTASSIUM 25 MG TABLET PO SCH (14:11)
--- NOTE | 2021-11-25 15:22 | NUR ---
SS Consult: SS consult for homelessness. Pt. Is a 61-year-old female. Pt. demonstrates adequate insight to the reason for hospitalization. Pt. was oriented x3, alert, and was hardly cooperative. During interview, pt. was capable of following directions, made appropriate eye-contact, and appeared unkempt. Pt.s speech was at a normal rate. Pt.s mood was irritable. SW explored pt.s hx of mental health and substance abuse. Pt. reported no hx of mental health, suicidal or homicidal ideation. Pt. stated that she drinks alcohol and uses methamphetamine every so often. Pt. denies auditory hallucinations, visual hallucinations, paranoia, or delusions. SW explored pt.s living situation. Per pt., she resides at [address] [place] [address]. Pt. stated that it is a shared house. SW explored pt.s financial status. Per pt., she receives SSI. Pt. is ambulatory and is independent with her ADLs. Plan: JORGE provided available resources and pt. rejected. Once discharge, per pt., she will return home to [address] [place] [address]. Pt. stated that she will take the bus.
--- NOTE | 2021-11-25 18:37 | NUR ---
ns rn on bed, no distress noted.
[2021-11-25 20:00] VITALS: BP 96/67
--- NOTE | 2021-11-25 20:44 | NUR ---
restraints dc/d because sitter is able to stay until 2am
[2021-11-25] MEDS: ACETAMINOPHEN 325 MG TABLET PO PRN (23:15)
[2021-11-26] VITALS: BP 121/80
--- NOTE | 2021-11-26 00:40 | NUR ---
Patient saturating at 90% on RA O2 via NC applied at 3L. Now saturating at 94%
[2021-11-26 03:42] VITALS: BP 114/60
[2021-11-26 06:19] LABS: BASOPHILS % (AUTO) 1.1 % (0.0-2.0); EOSINOPHILS % (AUTO) 5.2 % (0.0-6.0); HEMATOCRIT 32 % (33-45); HEMOGLOBIN 10.1 g/dL (11.5-14.8); LYMPHOCYTES # (AUTO) 1.5 K/uL (0.8-4.8); LYMPHOCYTES % (AUTO) 44.4 % (20.0-44.0); MEAN CORPUSCULAR HGB CONC 32 g/dl (31.0-36.0); MEAN CORPUSCULAR VOLUME 91 fL (82-100); MONOCYTES # (AUTO) 0.3 K/uL (0.1-1.30); MONOCYTES % (AUTO) 10.4 % (2.0-12.0); NEUTROPHILS # (AUTO) 1.3 K/uL (1.8-8.9); NEUTROPHILS % (AUTO) 38.9 % (43.0-81.0); PLATELET COUNT (AUTO) 107 K/uL (150-450); RED BLOOD CELL COUNT(AUTO) 3.47 MIL/uL (4.0-5.2); WHITE BLOOD COUNT (AUTO) 3.3 K/uL (4.3-11.0)
--- NOTE | 2021-11-26 06:32 | NUR ---
Patient much calmer overnight than reported in shifts prior. Currently A&Ox3, but unable to comprehend complicated concepts. Is able to make needs known. Cooperative not combative, nor rude to staff. Pleasant overnight; though, patient is a fall risk attempting to get oob without staff assist but reoriented pt. to call light which she has since been using. Also, patient is still refusing IVF at this time but eating and drinking well. SR 60s on the monitor. Only 1 c/o pain overnight 3/10 headache relieved by PRN tylenol. Otherwise no issues. Denies SOB, CP, or any other issues. No signs of distress. Currently awake but resting in bed.
[2021-11-26 06:41] LABS: CALCIUM, SERUM 8.4 mg/dL (8.5-10.1); CREATININE 1.7 mg/dL (0.6-1.3); MAGNESIUM 1.9 mg/dL (1.8-2.4); PHOSPHORUS 4.5 mg/dL (2.5-4.9); POTASSIUM 4.5 mmol/L (3.5-5.1)
--- NOTE | 2021-11-26 07:10 | NUR ---
ms rn received on bed, awake, alert,oriented x3,not in nay form of distress, respirations even and unlabored,no sob noted, lungs are clear, abdomen soft,positive bowel sounds,denies pain at this time.
[2021-11-26 08:00] VITALS: BP 125/76
--- NOTE | 2021-11-26 09:00 | NUR ---
ms rn patient refused meds at this time, will give later.
[2021-11-26] MEDS: LOSARTAN POTASSIUM 25 MG TABLET PO SCH (11:21)
[2021-11-26] MEDS: THIAMINE HCL 100 MG TABLET PO SCH (11:21)
[2021-11-26] MEDS: PANTOPRAZOLE 40 MG VIAL IV SCH (11:22)
[2021-11-26] MEDS: METOPROLOL SUCCINATE 25 MG TAB.SR.24H PO SCH (11:22)
--- NOTE | 2021-11-26 12:00 | NUR ---
ms rn was able to give meds,tolerated well.
--- NOTE | 2021-11-26 14:30 | NUR ---
ms rn was seen by dr. sarkar, hd cath removed,no s/s of active bleeding.
[2021-11-26] MEDS: ACETAMINOPHEN 325 MG TABLET PO PRN ×2 (16:25→22:31)
--- NOTE | 2021-11-26 17:00 | NUR ---
ms rn on bed, no distress noted.
--- NOTE | 2021-11-26 19:25 | NUR ---
CHEESE PRODUCTION SUPERVISOR OPENING NOTES RECEIVED PATIENT LAYING AWAKE IN BED. A/O X 2-3. PATIENT WITH REGULAR AND UNLABORED BREATHING ON ROOM AIR. NO SIGNS AND SYMPTOMS OF DISTRESS NOTED AT THIS TIME. NO COMPLAINS OF PAIN OR DISCOMFORT AT THIS TIME. IV ACCESS LFA G #20 SL. IV ACCESS PATENT AND INTACT. SAFETY PRECAUTIONS ENFORCED WITH BED LOCKED AND AT LOWEST POSITION. SIDERAILS UP X2. CALL LIGHT WITHIN REACH AT ALL TIMES. WILL CONTINUE TO MONITOR PATIENT.
[2021-11-26 20:00] VITALS: BP 122/75
--- NOTE | 2021-11-27 06:53 | NUR ---
BUSINESS LAW INSTRUCTOR CLOSING NOTES PATIENT STILL LAYING AWAKE IN BED. A/O X 2-3. PATIENT WITH REGULAR AND UNLABORED BREATHING ON ROOM AIR. NO SIGNS AND SYMPTOMS OF DISTRESS NOTED AT THIS TIME. NO COMPLAINS OF PAIN OR DISCOMFORT AT THIS TIME. IV ACCESS LFA G #20 SL. IV ACCESS PATENT AND INTACT. SAFETY PRECAUTIONS ENFORCED WITH BED LOCKED AND AT LOWEST POSITION. SIDERAILS UP X2. CALL LIGHT WITHIN REACH AT ALL TIMES. WILL ENDORSE CONTINUITY OF CARE TO DAY SHIFT NURSE.
--- NOTE | 2021-11-27 07:17 | NUR ---
LENS GRINDER AND POLISHER OPENING NOTES RECEIVED PATIENT LAYING AWAKE IN BED. A/O X 2-3. PATIENT WITH REGULAR AND UNLABORED BREATHING ON ROOM AIR. NO SIGNS AND SYMPTOMS OF DISTRESS NOTED AT THIS TIME. NO COMPLAINS OF PAIN OR DISCOMFORT AT THIS TIME. IV ACCESS LFA G #20 SL. IV ACCESS PATENT AND INTACT. SAFETY PRECAUTIONS ENFORCED WITH BED LOCKED AND AT LOWEST POSITION. BED ALARM ON, REINFORCED TO CALL FOR HELP BEFORE GETTING UP, PATIENT VERBALIZED UNDERSTANDING. SIDERAILS UP X2. CALL LIGHT WITHIN REACH AT ALL TIMES. WILL CONTINUE TO MONITOR
[2021-11-27 07:18] LABS: BASOPHILS % (AUTO) 1.2 % (0.0-2.0); EOSINOPHILS % (AUTO) 6.9 % (0.0-6.0); HEMATOCRIT 32 % (33-45); HEMOGLOBIN 10.4 g/dL (11.5-14.8); LYMPHOCYTES # (AUTO) 1.3 K/uL (0.8-4.8); LYMPHOCYTES % (AUTO) 43.3 % (20.0-44.0); MEAN CORPUSCULAR HGB CONC 32 g/dl (31.0-36.0); MEAN CORPUSCULAR VOLUME 91 fL (82-100); MONOCYTES # (AUTO) 0.3 K/uL (0.1-1.30); MONOCYTES % (AUTO) 10.1 % (2.0-12.0); NEUTROPHILS # (AUTO) 1.2 K/uL (1.8-8.9); NEUTROPHILS % (AUTO) 38.5 % (43.0-81.0); PLATELET COUNT (AUTO) 107 K/uL (150-450); RED BLOOD CELL COUNT(AUTO) 3.54 MIL/uL (4.0-5.2); WHITE BLOOD COUNT (AUTO) 3.1 K/uL (4.3-11.0)
[2021-11-27 07:54] LABS: CALCIUM, SERUM 8.4 mg/dL (8.5-10.1); CREATININE 1.5 mg/dL (0.6-1.3); MAGNESIUM 1.8 mg/dL (1.8-2.4); PHOSPHORUS 4.2 mg/dL (2.5-4.9); POTASSIUM 4.5 mmol/L (3.5-5.1)
[2021-11-27 08:00] VITALS: BP 133/62
[2021-11-27] MEDS: THIAMINE HCL 100 MG TABLET PO SCH (08:06)
[2021-11-27] MEDS: METOPROLOL SUCCINATE 25 MG TAB.SR.24H PO SCH (08:06)
[2021-11-27] MEDS: PANTOPRAZOLE 40 MG VIAL IV SCH (08:06)
[2021-11-27] MEDS: LOSARTAN POTASSIUM 25 MG TABLET PO SCH (08:07)
[2021-11-27] MEDS: ACETAMINOPHEN 325 MG TABLET PO PRN (10:50)
[2021-11-27 12:00] VITALS: BP 126/80
--- NOTE | 2021-11-27 12:08 | NUR ---
RN NOTE CRITICAL LAB VALUE OF TROPONIN 64, REPLAYED TO ,
[2021-11-27 16:00] VITALS: BP 136/82
--- NOTE | 2021-11-27 18:19 | NUR ---
SENIOR JAVA DATA ARCHITECT CLOSING NOTES PATIENT LAYING AWAKE IN BED. A/O X 2-3. PATIENT WITH REGULAR AND UNLABORED BREATHING ON ROOM AIR. NO SIGNS AND SYMPTOMS OF DISTRESS NOTED AT THIS TIME. NO COMPLAINS OF PAIN OR DISCOMFORT AT THIS TIME. IV ACCESS LFA G #20 SL. IV ACCESS PATENT AND INTACT. SAFETY PRECAUTIONS ENFORCED WITH BED LOCKED AND AT LOWEST POSITION. BED ALARM ON, REINFORCED TO CALL FOR HELP BEFORE GETTING UP, PATIENT VERBALIZED UNDERSTANDING, BUT DID NOT USE CALL LIGHT THROUGHOUT SHIFT. ALL MEDICATIONS GIVEN ORDERED. SIDERAILS UP X2. CALL LIGHT WITHIN REACH AT ALL TIMES. WILL ENDORSE TO ONCOMING SHIFT
--- NOTE | 2021-11-27 19:25 | NUR ---
EXPLOSIVE ORDNANCE DISPOSAL SPECIALIST OPENING NOTES RECEIVED PATIENT LAYING AWAKE IN BED. A/O X 2-3. PATIENT WITH REGULAR AND UNLABORED BREATHING ON ROOM AIR. NO SIGNS AND SYMPTOMS OF DISTRESS NOTED AT THIS TIME. NO COMPLAINS OF PAIN OR DISCOMFORT AT THIS TIME. IV ACCESS LFA G #20 SL. IV ACCESS PATENT AND INTACT. SAFETY PRECAUTIONS ENFORCED WITH BED LOCKED AND AT LOWEST POSITION. SIDERAILS UP X2. CALL LIGHT WITHIN REACH AT ALL TIMES. WILL CONTINUE TO MONITOR PATIENT.
[2021-11-27 20:00] VITALS: BP 138/78
--- NOTE | 2021-11-27 20:00 | NUR ---
DYE MIXER NOTES IV LFA G #20 REMOVED CATHETER INTACT. PATIENT REFUSED FOR NEW IV TO BE INSERTED. EXPLAINED RISKS AND BENEFITS. PATIENT STILL REFUSED. WILL CONTINUE TO MONITOR PATIENT.
[2021-11-28] MEDS ORDERED: TEMAZEPAM 15 MG CAPSULE PO PRN (01:00)
[2021-11-28 06:24] LABS: BASOPHILS % (AUTO) 1.1 % (0.0-2.0); EOSINOPHILS % (AUTO) 6.1 % (0.0-6.0); HEMATOCRIT 32 % (33-45); HEMOGLOBIN 10.2 g/dL (11.5-14.8); LYMPHOCYTES # (AUTO) 1.5 K/uL (0.8-4.8); LYMPHOCYTES % (AUTO) 40.1 % (20.0-44.0); MEAN CORPUSCULAR HGB CONC 32 g/dl (31.0-36.0); MEAN CORPUSCULAR VOLUME 91 fL (82-100); MONOCYTES # (AUTO) 0.4 K/uL (0.1-1.30); NEUTROPHILS # (AUTO) 1.6 K/uL (1.8-8.9); NEUTROPHILS % (AUTO) 41.7 % (43.0-81.0); PLATELET COUNT (AUTO) 121 K/uL (150-450); RED BLOOD CELL COUNT(AUTO) 3.47 MIL/uL (4.0-5.2); WHITE BLOOD COUNT (AUTO) 3.7 K/uL (4.3-11.0)
--- NOTE | 2021-11-28 06:49 | NUR ---
VESSEL CAPTAIN CLOSING NOTES PATIENT STILL LAYING AWAKE IN BED. A/O X 2-3. PATIENT WITH REGULAR AND UNLABORED BREATHING ON ROOM AIR. NO SIGNS AND SYMPTOMS OF DISTRESS NOTED AT THIS TIME. NO COMPLAINS OF PAIN OR DISCOMFORT AT THIS TIME. SAFETY PRECAUTIONS ENFORCED WITH BED LOCKED AND AT LOWEST POSITION. SIDERAILS UP X2. CALL LIGHT WITHIN REACH AT ALL TIMES. WILL ENDORSE CONTINUITY OF CARE TO DAY SHIFT NURSE.
[2021-11-28 07:11] LABS: CALCIUM, SERUM 8.6 mg/dL (8.5-10.1); CREATININE 1.7 mg/dL (0.6-1.3); MAGNESIUM 1.7 mg/dL (1.8-2.4); PHOSPHORUS 4.1 mg/dL (2.5-4.9); POTASSIUM 4.4 mmol/L (3.5-5.1)
[2021-11-28] MEDS ORDERED: PANTOPRAZOLE 40 MG TABLET.DR PO SCH (07:30)
[2021-11-28 08:00] VITALS: BP 121/79
[2021-11-28] MEDS: METOPROLOL SUCCINATE 25 MG TAB.SR.24H PO SCH (09:00)
[2021-11-28 09:44] VITALS: BP 121/79
[2021-11-28] MEDS: THIAMINE HCL 100 MG TABLET PO SCH (09:44)
[2021-11-28] MEDS: LOSARTAN POTASSIUM 25 MG TABLET PO SCH (09:44)
[2021-11-28] MEDS ORDERED: MAGNESIUM OXIDE 400 MG TABLET PO ONE (10:00)
--- NOTE | 2021-11-28 13:00 | NUR ---
AMA PATIENT STATES THAT WANT TO LEAVE THE HOSPITAL AGAINST MEDICAL ADVICE (AMA). PATIENT ENCOURAGED TO STAY FOR FURTHER TREATMENT/STABILIZATION. DR LEA LEMA NOTIFIED OF PATIENT'S WISHES. PATIENT ADVISED OF THE RISKS AND BENEFITS OF LEAVING AMA. PATIENT VERBALIZED UNDERSTANDING. PATIENT ENCOURAGED TO RETURN TO ER IF SYMPTOMS DO NOT IMPROVE OR WORSEN
== END 2021-11-28 13:12 | disposition left against medical advice (07) | DRG 466 ==
LOC: ER 15:16 → MED 18:24 → TELE 22:31
PROVIDERS: ADMIT Nurse Practitioner Acute Care; ATTEND Nurse Practitioner Acute Care
DX: T82.41XA Breakdown (mechanical) of vascular dialysis catheter, initial encounter (principal); N18.6 End stage renal disease; I21.4 Non-ST elevation (NSTEMI) myocardial infarction; I50.43 Acute on chronic combined systolic (congestive) and diastolic (congestive) heart failure; D61.818 Other pancytopenia; I42.9 Cardiomyopathy, unspecified; E87.1 Hypo-osmolality and hyponatremia; D70.9 Neutropenia, unspecified; F10.129 Alcohol abuse with intoxication, unspecified; I13.2 Hypertensive heart and chronic kidney disease with heart failure and with stage 5 chronic kidney disease, or end stage renal disease; R18.8 Other ascites; K74.60 Unspecified cirrhosis of liver; I25.10 Atherosclerotic heart disease of native coronary artery without angina pectoris; Z99.2 Dependence on renal dialysis; Z79.51 Long term (current) use of inhaled steroids; Z88.0 Allergy status to penicillin; Z79.899 Other long term (current) drug therapy; R74.01 Elevation of levels of liver transaminase levels; F23 Brief psychotic disorder; F17.200 Nicotine dependence, unspecified, uncomplicated; J44.9 Chronic obstructive pulmonary disease, unspecified; I35.0 Nonrheumatic aortic (valve) stenosis; Z91.19 Patient's noncompliance with other medical treatment and regimen; Z82.49 Family history of ischemic heart disease and other diseases of the circulatory system; Z83.3 Family history of diabetes mellitus; Z80.9 Family history of malignant neoplasm, unspecified; Z87.19 Personal history of other diseases of the digestive system; Z90.2 Acquired absence of lung [part of]; Z86.79 Personal history of other diseases of the circulatory system; K86.1 Other chronic pancreatitis; Y92.009 Unspecified place in unspecified non-institutional (private) residence as the place of occurrence of the external cause; Y71.2 Prosthetic and other implants, materials and accessory cardiovascular devices associated with adverse incidents; Y90.4 Blood alcohol level of 80-99 mg/100 ml
CPT/HCPCS: 36415; 71045-TC; 80048-TC; 80053-TC; 80061-TC; 80076-TC; 81001; 83540-TC; 83605-TC; 83735-TC; 84100-TC; 84443-TC; 84484-TC; 85025-TC; 87040-TC; 87081-TC; 87086-TC; 87186-TC; A6403; C9113; C9803; G0378; G0480; J3411; J3490; J7060; J7070

== ENCOUNTER 2022-01-27 13:58 | Inpatient (IN) | payer OTHER ==
[~2022-01-27] VITALS: Ht 177.8 cm; Wt 66.7 kg
[~2022-01-27 13:58] MED LIST changes: -FURO-144 PO; -Folic Acid PO; -IPRA0.2S9 NEB; -Olanzapine PO; +SEROQUEL; -THIA100T13 PO
[2022-01-27 14:59] LABS: EOSINOPHILS % (AUTO) 4.4 % (0.0-6.0); HEMATOCRIT 28 % (33-45); HEMOGLOBIN 9.1 g/dL (11.5-14.8); LYMPHOCYTES # (AUTO) 1.6 K/uL (0.8-4.8); LYMPHOCYTES % (AUTO) 41.2 % (20.0-44.0); MEAN CORPUSCULAR HGB CONC 33 g/dl (31.0-36.0); MEAN CORPUSCULAR VOLUME 99 fL (82-100); MONOCYTES # (AUTO) 0.3 K/uL (0.1-1.30); MONOCYTES % (AUTO) 8.8 % (2.0-12.0); NEUTROPHILS # (AUTO) 1.7 K/uL (1.8-8.9); NEUTROPHILS % (AUTO) 44.6 % (43.0-81.0); PLATELET COUNT (AUTO) 136 K/uL (150-450); RED BLOOD CELL COUNT(AUTO) 2.81 MIL/uL (4.0-5.2); WHITE BLOOD COUNT (AUTO) 3.9 K/uL (4.3-11.0)
[2022-01-27 15:23] LABS: ALANINE AMINOTRANSFERASE 26 U/L (12-78); ALBUMIN 2.3 g/dL (3.4-5.0); ALCOHOL, BLOOD 55 mg/dL (0-0); ALKALINE PHOSPHATASE 146 U/L (46-116); ASPARTATE AMINOTRANSFERASE 58 U/L (15-37); BILIRUBIN,DIRECT 0.2 mg/dL (0.0-0.2); BILIRUBIN,TOTAL 0.7 mg/dL (0.2-1.0); CALCIUM, SERUM 8.9 mg/dL (8.5-10.1); CARBON DIOXIDE 23 mmol/L (21-32); CHLORIDE 113 mmol/L (98-107); GLUCOSE 88 mg/dL (74-106); POTASSIUM 5.5 mmol/L (3.5-5.1); SODIUM SERUM 142 mmol/L (136-145); TOTAL PROTEIN, SERUM 6.4 g/dL (6.4-8.2); UREA NITROGEN, BLOOD 43 mg/dL (7-18)
[2022-01-27] MEDS ORDERED: IV NS 0.9% 1,000 ML BAG IV ONE (16:00)
[2022-01-27 16:06] LABS: SERUM AMMONIA 51 umol/L (11-32)
[2022-01-27 16:15] LABS: THYROID STIMULATING HORMONE 1.309 uIU/mL (0.358-3.74)
[2022-01-27 16:40] LABS: BILIRUBIN,URINE NEGATIVE (NEGATIVE); COLOR,URINE YELLOW (YELLOW); LEUKOCYTE ESTERASE ,URINE MODERATE (NEGATIVE); NITRITE, URINE NEGATIVE (NEGATIVE); PH,URINE 6.5 (5.0-8.0); PROTEIN,URINE 30 mg/dl (NEGATIVE); UGLUCOSE NEGATIVE (NEGATIVE); UROBILINOGEN,URINE 0.2 EU/dL (0.2)
[2022-01-27 16:49] LABS: BACTERIA,URINE Many /HPF (None Seen); RBC,URINE 20-40 /HPF (0-2); SQUAMOUS EPITHELIAL CELL,UR Few /HPF (None Seen); WBC,URINE 51-80 /HPF (0-3)
[2022-01-27] MEDS ORDERED: CEFTRIAXONE 1 G in IV D5W 50 ML IV ONE (20:00)
[2022-01-27] MEDS ORDERED: CEFTRIAXONE 1GM BAG (ER ONLY) 50 ML IV ONE (20:10)
[2022-01-27] MEDS: CIPROFLOXACIN IV RTU 400 MG in PREMIX 1 EA IV SCH ×2 (21:00→21:47)
[2022-01-27] MEDS ORDERED: ZOLPIDEM TARTRATE 5 MG TABLET PO PRN (21:30)
[2022-01-27] MEDS ORDERED: MAGNESIUM HYDROXIDE 30 ML UDC PO PRN (21:30)
[2022-01-27] MEDS ORDERED: LORAZEPAM INJ 2 MG/ML VIAL IV PRN (21:30)
[2022-01-27] MEDS ORDERED: MAG HYDROX/AL HYDROX/SIMETH 30 ML UDC PO PRN (21:30)
[2022-01-27] MEDS ORDERED: ONDANSETRON HCL/PF 4 MG/2 ML VIAL IVP PRN (21:30)
[2022-01-27] MEDS ORDERED: Z GUARD REMEDY 4 OZ OINT TP PRN (21:30)
[2022-01-27] MEDS ORDERED: CIPROFLOXACIN IV RTU 200 ML IV ONE (21:37)
[2022-01-27 23:30] VITALS: BP 121/75
[2022-01-28] MEDS: IV NS 0.9% 1,000 ML IV PRN ×2 (00:08→19:26)
[2022-01-28] MEDS: HYDROMORPHONE 1 MG/1 ML DISP.SYRIN IV PRN (01:15)
[2022-01-28 06:41] LABS: BASOPHILS % (AUTO) 1.1 % (0.0-2.0); EOSINOPHILS % (AUTO) 4.4 % (0.0-6.0); HEMATOCRIT 27 % (33-45); HEMOGLOBIN 8.8 g/dL (11.5-14.8); LYMPHOCYTES # (AUTO) 1.6 K/uL (0.8-4.8); LYMPHOCYTES % (AUTO) 40.3 % (20.0-44.0); MEAN CORPUSCULAR HGB CONC 33 g/dl (31.0-36.0); MEAN CORPUSCULAR VOLUME 99 fL (82-100); MONOCYTES # (AUTO) 0.4 K/uL (0.1-1.30); MONOCYTES % (AUTO) 9.4 % (2.0-12.0); NEUTROPHILS # (AUTO) 1.7 K/uL (1.8-8.9); NEUTROPHILS % (AUTO) 44.8 % (43.0-81.0); PLATELET COUNT (AUTO) 130 K/uL (150-450); RED BLOOD CELL COUNT(AUTO) 2.71 MIL/uL (4.0-5.2); WHITE BLOOD COUNT (AUTO) 3.9 K/uL (4.3-11.0)
[2022-01-28 06:52] LABS: CALCIUM, SERUM 8.2 mg/dL (8.5-10.1); MAGNESIUM 1.7 mg/dL (1.8-2.4); PHOSPHORUS 4.2 mg/dL (2.5-4.9); POTASSIUM 4.7 mmol/L (3.5-5.1)
[2022-01-28 08:00] VITALS: BP 132/58
[2022-01-28] MEDS: Magnesium 1GM/D5W 100ML PREMIX 100 ML IV SCH ×2 (08:21→09:39)
[2022-01-28] MEDS: PANTOPRAZOLE 40 MG VIAL IV SCH (08:21)
[2022-01-28] MEDS: QUETIAPINE FUMARATE 100 MG TABLET PO SCH ×2 (08:22→17:20)
[2022-01-28] MEDS: METOPROLOL SUCCINATE 25 MG TAB.SR.24H PO SCH (08:22)
[2022-01-28] MEDS: CIPROFLOXACIN IV RTU 400 MG in PREMIX 1 EA IV SCH ×3 (10:58→20:00)
[2022-01-28] MEDS ORDERED: LACTULOSE 10 G/15 ML UDC (PYXIS) PO PRN (12:30)
[2022-01-28 16:00] VITALS: BP 121/68
[2022-01-28] MEDS: MUPIROCIN OINT 2% 22 GM TUBE NS SCH ×2 (19:13→21:38)
[2022-01-28 20:00] VITALS: BP 140/74
[2022-01-29] MEDS: IV NS 0.9% 1,000 ML IV PRN (06:26)
[2022-01-29 06:38] LABS: CALCIUM, SERUM 8.4 mg/dL (8.5-10.1); CREATININE 1.1 mg/dL (0.6-1.3); PHOSPHORUS 4.3 mg/dL (2.5-4.9); POTASSIUM 4.8 mmol/L (3.5-5.1)
[2022-01-29 06:44] LABS: LIPASE 224 U/L (73-393)
[2022-01-29 06:46] LABS: SERUM AMMONIA 41 umol/L (11-32)
[2022-01-29 06:48] LABS: BASOPHILS % (AUTO) 1.4 % (0.0-2.0); HEMATOCRIT 26 % (33-45); HEMOGLOBIN 8.7 g/dL (11.5-14.8); LYMPHOCYTES # (AUTO) 1.1 K/uL (0.8-4.8); LYMPHOCYTES % (AUTO) 41.7 % (20.0-44.0); MEAN CORPUSCULAR HGB CONC 33 g/dl (31.0-36.0); MEAN CORPUSCULAR VOLUME 100 fL (82-100); MONOCYTES # (AUTO) 0.3 K/uL (0.1-1.30); MONOCYTES % (AUTO) 9.5 % (2.0-12.0); NEUTROPHILS # (AUTO) 1.1 K/uL (1.8-8.9); NEUTROPHILS % (AUTO) 41.4 % (43.0-81.0); PLATELET COUNT (AUTO) 122 K/uL (150-450); RED BLOOD CELL COUNT(AUTO) 2.64 MIL/uL (4.0-5.2); WHITE BLOOD COUNT (AUTO) 2.7 K/uL (4.3-11.0)
[2022-01-29] MEDS: PANTOPRAZOLE 40 MG VIAL IV SCH (08:46)
[2022-01-29] MEDS: MUPIROCIN OINT 2% 22 GM TUBE NS SCH ×2 (08:46→20:53)
[2022-01-29] MEDS: CIPROFLOXACIN IV RTU 400 MG in PREMIX 1 EA IV SCH (08:46)
[2022-01-29] MEDS: QUETIAPINE FUMARATE 100 MG TABLET PO SCH ×2 (08:47→16:28)
[2022-01-29] MEDS: METOPROLOL SUCCINATE 25 MG TAB.SR.24H PO SCH (09:20)
[2022-01-29 16:28] VITALS: BP 140/70
[2022-01-29 20:00] VITALS: BP 135/74
[2022-01-29] MEDS: CIPROFLOXACIN HCL 250 MG TABLET PO SCH (20:53)
[2022-01-30 02:59] VITALS: BP 135/74
[2022-01-30 06:32] LABS: CALCIUM, SERUM 8.7 mg/dL (8.5-10.1); MAGNESIUM 1.7 mg/dL (1.8-2.4); PHOSPHORUS 4.3 mg/dL (2.5-4.9); POTASSIUM 4.7 mmol/L (3.5-5.1)
[2022-01-30 07:23] LABS: BASOPHILS % (AUTO) 1.5 % (0.0-2.0); EOSINOPHILS % (AUTO) 6.5 % (0.0-6.0); HEMATOCRIT 28 % (33-45); HEMOGLOBIN 9.1 g/dL (11.5-14.8); LYMPHOCYTES % (AUTO) 38.8 % (20.0-44.0); MEAN CORPUSCULAR HGB CONC 32 g/dl (31.0-36.0); MEAN CORPUSCULAR VOLUME 102 fL (82-100); MONOCYTES # (AUTO) 0.3 K/uL (0.1-1.30); MONOCYTES % (AUTO) 10.7 % (2.0-12.0); NEUTROPHILS % (AUTO) 42.5 % (43.0-81.0); PLATELET COUNT (AUTO) 116 K/uL (150-450); RED BLOOD CELL COUNT(AUTO) 2.79 MIL/uL (4.0-5.2); WHITE BLOOD COUNT (AUTO) 2.4 K/uL (4.3-11.0)
[2022-01-30 08:30] VITALS: BP 142/77
[2022-01-30] MEDS: CIPROFLOXACIN HCL 250 MG TABLET PO SCH (08:54)
[2022-01-30] MEDS: THIAMINE HCL 100 MG TABLET PO SCH (08:54)
[2022-01-30] MEDS: MUPIROCIN OINT 2% 22 GM TUBE NS SCH ×2 (08:54→20:44)
[2022-01-30] MEDS: FOLIC ACID 1 MG TABLET PO SCH (08:55)
[2022-01-30] MEDS: METOPROLOL SUCCINATE 25 MG TAB.SR.24H PO SCH (08:55)
[2022-01-30] MEDS: QUETIAPINE FUMARATE 100 MG TABLET PO SCH ×2 (08:55→17:43)
[2022-01-30] MEDS: PANTOPRAZOLE 40 MG TABLET.DR PO SCH (08:56)
[2022-01-30] MEDS: Magnesium 1GM/D5W 100ML PREMIX 100 ML IV SCH ×2 (11:11→12:14)
[2022-01-30 15:55] VITALS: BP 128/69
[2022-01-30 20:00] VITALS: BP 119/51
[2022-01-30] MEDS: CIPROFLOXACIN HCL 500 MG TABLET PO SCH (20:44)
[2022-01-31] MEDS: ACETAMINOPHEN 325 MG TABLET PO PRN ×2 (00:24→08:59)
[2022-01-31] MEDS: PANTOPRAZOLE 40 MG TABLET.DR PO SCH (07:53)
[2022-01-31 08:00] VITALS: BP 137/69
[2022-01-31] MEDS: THIAMINE HCL 100 MG TABLET PO SCH (08:49)
[2022-01-31] MEDS: CIPROFLOXACIN HCL 500 MG TABLET PO SCH ×2 (08:50→21:21)
[2022-01-31] MEDS: FOLIC ACID 1 MG TABLET PO SCH (08:50)
[2022-01-31] MEDS: MUPIROCIN OINT 2% 22 GM TUBE NS SCH ×2 (08:50→21:23)
[2022-01-31] MEDS: METOPROLOL SUCCINATE 25 MG TAB.SR.24H PO SCH (08:50)
[2022-01-31] MEDS: QUETIAPINE FUMARATE 100 MG TABLET PO SCH (08:50)
[2022-01-31 14:25] LABS: BASOPHILS % (AUTO) 1.1 % (0.0-2.0); EOSINOPHILS % (AUTO) 4.7 % (0.0-6.0); HEMATOCRIT 26 % (33-45); HEMOGLOBIN 8.7 g/dL (11.5-14.8); LYMPHOCYTES # (AUTO) 1.1 K/uL (0.8-4.8); LYMPHOCYTES % (AUTO) 44.2 % (20.0-44.0); MEAN CORPUSCULAR HGB CONC 33 g/dl (31.0-36.0); MEAN CORPUSCULAR VOLUME 99 fL (82-100); MONOCYTES # (AUTO) 0.3 K/uL (0.1-1.30); MONOCYTES % (AUTO) 12.3 % (2.0-12.0); NEUTROPHILS % (AUTO) 37.7 % (43.0-81.0); PLATELET COUNT (AUTO) 111 K/uL (150-450); RED BLOOD CELL COUNT(AUTO) 2.67 MIL/uL (4.0-5.2); WHITE BLOOD COUNT (AUTO) 2.6 K/uL (4.3-11.0)
[2022-01-31 14:42] LABS: CALCIUM, SERUM 7.9 mg/dL (8.5-10.1); CREATININE 1.2 mg/dL (0.6-1.3); MAGNESIUM 1.8 mg/dL (1.8-2.4); POTASSIUM 4.7 mmol/L (3.5-5.1)
[2022-01-31 16:00] VITALS: BP 104/62
[2022-01-31] MEDS: OLANZAPINE 2.5 MG TABLET PO SCH (17:28)
[2022-01-31 20:00] VITALS: BP 160/80
[2022-01-31 20:25] VITALS: BP 160/80
[2022-02-01] MEDS: OLANZAPINE 2.5 MG TABLET PO SCH ×2 (08:11→16:56)
[2022-02-01] MEDS: PANTOPRAZOLE 40 MG TABLET.DR PO SCH (08:11)
[2022-02-01] MEDS: THIAMINE HCL 100 MG TABLET PO SCH (08:11)
[2022-02-01] MEDS: FOLIC ACID 1 MG TABLET PO SCH (08:11)
[2022-02-01] MEDS: MUPIROCIN OINT 2% 22 GM TUBE TP SCH (08:16)
[2022-02-01] MEDS: MUPIROCIN OINT 2% 22 GM TUBE NS SCH ×2 (08:16→20:19)
[2022-02-01] MEDS: METOPROLOL SUCCINATE 25 MG TAB.SR.24H PO SCH (08:23)
[2022-02-01] MEDS ORDERED: MUPIROCIN OINT 2% 22 GM TUBE TP SCH (09:00)
[2022-02-01] MEDS: CIPROFLOXACIN HCL 500 MG TABLET PO SCH ×2 (09:13→20:19)
[2022-02-01] MEDS ORDERED: VANCOMYCIN 1 GM in IV D5W 250 ML IV ONE (13:00)
[2022-02-01 20:00] VITALS: BP 134/65
[2022-02-01] MEDS: HYDROMORPHONE 1 MG/1 ML DISP.SYRIN IV PRN (20:20)
[2022-02-01] MEDS: IV NS 0.9% 1,000 ML IV PRN (20:48)
[2022-02-02] VITALS (9 sets, daily range): BP systolic 116–145; BP diastolic 68–88
[2022-02-02] MEDS: VANCOMYCIN 0.75 GM in IV D5W 250 ML IV SCH ×2 (00:37→12:39)
[2022-02-02 07:00] LABS: BASOPHILS % (AUTO) 0.8 % (0.0-2.0); EOSINOPHILS % (AUTO) 5.6 % (0.0-6.0); HEMATOCRIT 28 % (33-45); HEMOGLOBIN 9.2 g/dL (11.5-14.8); LYMPHOCYTES # (AUTO) 1.6 K/uL (0.8-4.8); MEAN CORPUSCULAR HGB CONC 33 g/dl (31.0-36.0); MEAN CORPUSCULAR VOLUME 99 fL (82-100); MONOCYTES # (AUTO) 0.4 K/uL (0.1-1.30); MONOCYTES % (AUTO) 10.4 % (2.0-12.0); NEUTROPHILS # (AUTO) 1.4 K/uL (1.8-8.9); NEUTROPHILS % (AUTO) 38.2 % (43.0-81.0); PLATELET COUNT (AUTO) 128 K/uL (150-450); RED BLOOD CELL COUNT(AUTO) 2.79 MIL/uL (4.0-5.2); WHITE BLOOD COUNT (AUTO) 3.6 K/uL (4.3-11.0)
[2022-02-02 07:05] LABS: CALCIUM, SERUM 8.5 mg/dL (8.5-10.1); CREATININE 1.1 mg/dL (0.6-1.3); MAGNESIUM 1.4 mg/dL (1.8-2.4); PHOSPHORUS 3.5 mg/dL (2.5-4.9); POTASSIUM 4.8 mmol/L (3.5-5.1)
[2022-02-02] MEDS: CIPROFLOXACIN HCL 500 MG TABLET PO SCH ×2 (08:04→20:47)
[2022-02-02] MEDS: FOLIC ACID 1 MG TABLET PO SCH (08:04)
[2022-02-02] MEDS: THIAMINE HCL 100 MG TABLET PO SCH (08:04)
[2022-02-02] MEDS: PANTOPRAZOLE 40 MG TABLET.DR PO SCH (08:04)
[2022-02-02] MEDS: MUPIROCIN OINT 2% 22 GM TUBE NS SCH ×4 (08:08→09:43)
[2022-02-02] MEDS: METOPROLOL SUCCINATE 25 MG TAB.SR.24H PO SCH (08:25)
[2022-02-02] MEDS: OLANZAPINE 2.5 MG TABLET PO SCH ×2 (08:25→16:10)
[2022-02-02] MEDS ORDERED: IODIXANOL 150 ML IV ONE (08:29)
[2022-02-02] MEDS ORDERED: IV NS 0.9% 1,000 ML ONE (08:39)
[2022-02-02] MEDS ORDERED: IV SET PRIMARY PUMP SET 1 EA INFUS.SET MC ONE (08:40)
[2022-02-02] MEDS ORDERED: MIDAZOLAM HCL 2 MG/2ML VIAL ONE (08:42)
[2022-02-02] MEDS ORDERED: HEPARIN SODIUM, PORCINE 1,000 UNIT/ML VIAL ONE (08:42)
[2022-02-02] MEDS ORDERED: FENTANYL PF 100MCG/2ML AMPUL ONE (08:42)
[2022-02-02] MEDS: MUPIROCIN OINT 2% 22 GM TUBE TP SCH (09:47)
[2022-02-02] MEDS ORDERED: NICARDIPINE HCL 25 MG/10 ML VIAL IV ONE (09:49)
[2022-02-02] MEDS: Magnesium 1GM/D5W 100ML PREMIX 100 ML IV SCH ×4 (10:46→14:13)
[2022-02-02] MEDS: HYDROMORPHONE 1 MG/1 ML DISP.SYRIN IV PRN ×2 (16:12→22:43)
[2022-02-02] MEDS: IV NS 0.9% 1,000 ML IV PRN (17:06)
[2022-02-03] VITALS: BP 145/75
[2022-02-03] MEDS: VANCOMYCIN 0.75 GM in IV D5W 250 ML IV SCH ×2 (01:51→12:34)
[2022-02-03] MEDS: ACETAMINOPHEN 325 MG TABLET PO PRN (03:37)
[2022-02-03 04:00] VITALS: BP 149/107
[2022-02-03] MEDS: IV NS 0.9% 1,000 ML IV PRN (04:44)
[2022-02-03] MEDS: HYDROMORPHONE 1 MG/1 ML DISP.SYRIN IV PRN (04:51)
[2022-02-03 05:30] VITALS: BP 138/80
[2022-02-03 06:52] LABS: EOSINOPHILS % (AUTO) 6.9 % (0.0-6.0); HEMATOCRIT 26 % (33-45); HEMOGLOBIN 8.7 g/dL (11.5-14.8); LYMPHOCYTES # (AUTO) 1.5 K/uL (0.8-4.8); LYMPHOCYTES % (AUTO) 36.1 % (20.0-44.0); MEAN CORPUSCULAR HGB CONC 33 g/dl (31.0-36.0); MEAN CORPUSCULAR VOLUME 99 fL (82-100); MONOCYTES # (AUTO) 0.5 K/uL (0.1-1.30); MONOCYTES % (AUTO) 11.9 % (2.0-12.0); NEUTROPHILS # (AUTO) 1.9 K/uL (1.8-8.9); NEUTROPHILS % (AUTO) 44.1 % (43.0-81.0); PLATELET COUNT (AUTO) 134 K/uL (150-450); RED BLOOD CELL COUNT(AUTO) 2.66 MIL/uL (4.0-5.2); WHITE BLOOD COUNT (AUTO) 4.2 K/uL (4.3-11.0)
[2022-02-03 07:04] LABS: CALCIUM, SERUM 8.2 mg/dL (8.5-10.1); CREATININE 1.2 mg/dL (0.6-1.3); POTASSIUM 4.8 mmol/L (3.5-5.1)
[2022-02-03 08:00] VITALS: BP 146/91
[2022-02-03] MEDS: FOLIC ACID 1 MG TABLET PO SCH (08:43)
[2022-02-03] MEDS: THIAMINE HCL 100 MG TABLET PO SCH (08:43)
[2022-02-03] MEDS: PANTOPRAZOLE 40 MG TABLET.DR PO SCH (08:43)
[2022-02-03] MEDS: OLANZAPINE 2.5 MG TABLET PO SCH (08:43)
[2022-02-03 08:44] VITALS: BP 146/91
[2022-02-03] MEDS: METOPROLOL SUCCINATE 25 MG TAB.SR.24H PO SCH (08:44)
[2022-02-03] MEDS: CIPROFLOXACIN HCL 500 MG TABLET PO SCH (08:46)
[2022-02-03] MEDS: MUPIROCIN OINT 2% 22 GM TUBE TP SCH (08:54)
[2022-02-03] MEDS ORDERED: OLAN2.5T3 PO (13:43)
[2022-02-03] MEDS ORDERED: MUPI22OI7 NS (13:43)
[2022-02-03] MEDS ORDERED: CIPR-262 PO (13:43)
[2022-02-03] MEDS ORDERED: SULF1TAB48 PO (13:43)
== END 2022-02-03 15:20 | DRG 775 ==
LOC: ER 14:02 → TELE 22:15 → MED 01-28 01:16 → TELE 02-02 10:21
PROVIDERS: ADMIT Nurse Practitioner Acute Care; ATTEND Nurse Practitioner Acute Care
PROC: 05H933Z Insertion of Infusion Device into Right Brachial Vein, Percutaneous Approach (ICD-10-PCS; 2022-01-27)
PROC: 0JBQ0ZZ Excision of Right Foot Subcutaneous Tissue and Fascia, Open Approach (ICD-10-PCS; principal; 2022-01-31)
PROC: B41DYZZ Fluoroscopy of Aorta and Bilateral Lower Extremity Arteries using Other Contrast (ICD-10-PCS; 2022-02-02)
DX: F10.129 Alcohol abuse with intoxication, unspecified (principal); N17.0 Acute kidney failure with tubular necrosis; G92.9 Unspecified toxic encephalopathy; D61.818 Other pancytopenia; I13.2 Hypertensive heart and chronic kidney disease with heart failure and with stage 5 chronic kidney disease, or end stage renal disease; E44.0 Moderate protein-calorie malnutrition; E72.20 Disorder of urea cycle metabolism, unspecified; N18.6 End stage renal disease; I42.9 Cardiomyopathy, unspecified; F05 Delirium due to known physiological condition; S32.810A Multiple fractures of pelvis with stable disruption of pelvic ring, initial encounter for closed fracture; R18.8 Other ascites; K74.60 Unspecified cirrhosis of liver; I70.92 Chronic total occlusion of artery of the extremities; F29 Unspecified psychosis not due to a substance or known physiological condition; S42.031A Displaced fracture of lateral end of right clavicle, initial encounter for closed fracture; L89.619 Pressure ulcer of right heel, unspecified stage; Y92.9 Unspecified place or not applicable; E86.0 Dehydration; Y90.9 Presence of alcohol in blood, level not specified; S42.032A Displaced fracture of lateral end of left clavicle, initial encounter for closed fracture; Z82.49 Family history of ischemic heart disease and other diseases of the circulatory system; W18.30XA Fall on same level, unspecified, initial encounter; L89.629 Pressure ulcer of left heel, unspecified stage; F17.210 Nicotine dependence, cigarettes, uncomplicated; I25.10 Atherosclerotic heart disease of native coronary artery without angina pectoris; Z99.2 Dependence on renal dialysis; I45.6 Pre-excitation syndrome; Z87.19 Personal history of other diseases of the digestive system; Y90.2 Blood alcohol level of 40-59 mg/100 ml; Z88.0 Allergy status to penicillin; Z79.899 Other long term (current) drug therapy; I35.0 Nonrheumatic aortic (valve) stenosis; B96.89 Other specified bacterial agents as the cause of diseases classified elsewhere; Z91.81 History of falling; I50.42 Chronic combined systolic (congestive) and diastolic (congestive) heart failure; J44.9 Chronic obstructive pulmonary disease, unspecified; I70.221 Atherosclerosis of native arteries of extremities with rest pain, right leg; F25.9 Schizoaffective disorder, unspecified; V09.20XA Pedestrian injured in traffic accident involving unspecified motor vehicles, initial encounter; E88.09 Other disorders of plasma-protein metabolism, not elsewhere classified; E87.5 Hyperkalemia; E83.42 Hypomagnesemia; G93.89 Other specified disorders of brain; Z90.2 Acquired absence of lung [part of]; Z83.3 Family history of diabetes mellitus; Z80.9 Family history of malignant neoplasm, unspecified; N39.0 Urinary tract infection, site not specified; K86.1 Other chronic pancreatitis; E83.51 Hypocalcemia
CPT/HCPCS: 36246; 36415; 70450-TC; 71045-TC; 71250-TC; 72125-TC; 72170-TC; 73650-TC; 75625; 75710-TC; 80048-TC; 80076-TC; 80202-TC; 81001; 82140-TC; 83690-TC; 83735-TC; 84100-TC; 84443-TC; 84484-TC; 85025-TC; 85610-TC; 87070-TC; 87081-TC; 87086-TC; 87186-TC; 97112-TC; 97116-TC; 97530-TC; A4216; A6403; C1769; C1887; C1894; C9113; C9803; G0378; G0480; G0500; J0696; J0744; J1170; J1644; J2060; J2250; J3010; J3370; J3475; J7030; J7060; Q9967

== ENCOUNTER 2022-06-17 16:51 | Emergency (ER) | payer OTHER ==
[~2022-06-17] VITALS: Ht 182.9 cm; Wt 63.5 kg
[~2022-06-17 16:51] MED LIST changes: +CIPR-262 PO; +MUPI22OI7 NS; +OLAN2.5T3 PO; -SEROQUEL; +SULF1TAB48 PO
--- NOTE | 2022-06-17 16:52 | NUR ---
[id number] FRM HOME C/O RLE REDNESS AND SWELLING x 4DAYS. PLACED ON BED, AAOX4, BREATHING EVEN AND UNLABORED, RIGHT LOWER LEG REDNESS AND SWELLING NOTED.
--- NOTE | 2022-06-17 17:35 | NUR ---
AT BED SIDE
[2022-06-17] MEDS ORDERED: SULF1TAB48 PO (17:44)
--- NOTE | 2022-06-17 18:05 | NUR ---
Patient discharged to home in stable condition. Written and verbal after care instructions given. Patient verbalizes understanding of instruction.
[2022-06-17 18:22] VITALS: BP 125/75
== END 2022-06-17 18:05 | disposition home or self-care (01) ==
LOC: ER 16:54
DX: L03.116 Cellulitis of left lower limb (principal); I10 Essential (primary) hypertension; Z88.0 Allergy status to penicillin; Z79.899 Other long term (current) drug therapy